=== PATIENT | male | born 1960 | race Caucasian/White ===

== ENCOUNTER → 2020-07-22 15:17 | Outpatient (BNVA) | payer MEDICARE, MEDICAID, SELFPAY | PROVIDERS: PCP Family Medicine; Visit Provider Anesthesiology | DX: M17.10 Unilateral primary osteoarthritis, unspecified knee (principal); M10.9 Gout, unspecified; G89.4 Chronic pain syndrome; Z79.891 Long term (current) use of opiate analgesic; E11.610 Type 2 diabetes mellitus with diabetic neuropathic arthropathy; E66.01 Morbid (severe) obesity due to excess calories | CPT/HCPCS: 99202 ==

== ENCOUNTER → 2020-08-17 15:43 | Outpatient (BNVA) | payer MEDICARE, MEDICAID, SELFPAY | PROVIDERS: PCP Family Medicine; Visit Provider Family Medicine Adult Medicine | DX: E11.610 Type 2 diabetes mellitus with diabetic neuropathic arthropathy (principal); M17.10 Unilateral primary osteoarthritis, unspecified knee | CPT/HCPCS: 99202; Q3014 ==

== ENCOUNTER → 2020-08-31 13:31 | Outpatient (BNVA) | payer MEDICARE, MEDICAID, SELFPAY | PROVIDERS: PCP Family Medicine; Visit Provider Family Medicine Adult Medicine | DX: E11.610 Type 2 diabetes mellitus with diabetic neuropathic arthropathy (principal); M17.10 Unilateral primary osteoarthritis, unspecified knee | CPT/HCPCS: 99212 ==

== ENCOUNTER → 2020-09-14 15:29 | Outpatient (BNVA) | payer MEDICARE, MEDICAID, SELFPAY | PROVIDERS: Visit Provider Urology | DX: Z13.89 Encounter for screening for other disorder (principal) | CPT/HCPCS: Q3014 ==

== ENCOUNTER → 2020-09-28 15:27 | Outpatient (BNVA) | payer MEDICARE, MEDICAID, SELFPAY | PROVIDERS: PCP Family Medicine; Visit Provider Family Medicine Adult Medicine | DX: E11.610 Type 2 diabetes mellitus with diabetic neuropathic arthropathy (principal); M17.10 Unilateral primary osteoarthritis, unspecified knee | CPT/HCPCS: 99212 ==

== ENCOUNTER → 2020-11-03 08:05 | Outpatient (BNVA) | payer MEDICARE, MEDICAID, SELFPAY | PROVIDERS: PCP Internal Medicine; Visit Provider Anesthesiology | DX: M17.10 Unilateral primary osteoarthritis, unspecified knee (principal); M10.9 Gout, unspecified; G89.4 Chronic pain syndrome; E11.610 Type 2 diabetes mellitus with diabetic neuropathic arthropathy; E66.01 Morbid (severe) obesity due to excess calories; Z79.891 Long term (current) use of opiate analgesic | CPT/HCPCS: 99212 ==

== ENCOUNTER → 2021-03-17 14:19 | Outpatient (BNVA) | payer MEDICARE, MEDICAID, SELFPAY | PROVIDERS: Visit Provider Urology | CPT/HCPCS: Q3014 ==

== ENCOUNTER 2021-05-06 10:06 | Day surgery (SDC) | payer MEDICARE, MEDICAID, SELFPAY ==
[2021-04-29 14:16] VITALS: BMI 37.8
--- NOTE | 2021-05-05 09:26 | P.CONAN_ITS ---
Documented by User: Gladis Lamb NP 05/05/21 09:31 HPI - Anesthesia Eval Consult details Narrative: 60yo M for Lumbar Spinal Cord Stimulation Trial Eliquis for afib PMFSH Active Problems Active Problems: All Active Problems (Updated 04/29/21 @ 14:19 by Erika Rogers RN) Nephrolithiasis (Acute) Nocturia more than twice per night (Acute) BPH w urinary obs/LUTS (Acute) Degenerative arthritis of knee, bilateral (Acute) Amputation of right great toe (Acute) Morbid obesity (Acute) Charcot foot due to diabetes mellitus (Acute) terminal operator (current) use of opiate analgesic (Acute) Chronic pain syndrome (Acute) Gout, arthritis (Acute) Knee osteoarthritis (Acute) Past Medical History Medical History (Updated 04/29/21 @ 14:19 by Erika Rogers RN) Amputation of right great toe Atrial fibrillation Charcot foot due to diabetes mellitus Chronic pain syndrome Cirrhosis COPD (chronic obstructive pulmonary disease) COVID-19 vaccine series completed Degenerative arthritis of knee, bilateral Diabetes Gout, arthritis Knee 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 Morbid obesity Osteomyelitis Renal calculi Surgical History Surgical History (Updated 04/29/21 @ 13:46 by Erika Rogers RN) H/O colonoscopy Hx of amputation Hx of foot surgery Hx of lithotripsy Hx of rotator cuff surgery Social History Social History Household Members Other:: roommate Are you a primary resident care director to a significant other at home: No Do you presently have visiting nurse or other home services: No Patient Tobacco Use Status: Current everyday Tobacco user Tobacco use type: Cigarette Cigarettes Per Day: 10 Years Smoked: 45 Use of substances other than those prescribed or required for medical reasons: No Have you been hit, kicked, punched, or otherwise hurt by someone within the past year? 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 Meds Allergies Allergy/AdvReac Type Severity Reaction Status Date / Time amlodipine [From NORVASC] Allergy Intermediate TREMORS Verified 03/17/21 14:20 hydrochlorothiazide Allergy Intermediate DIZZINESS Verified 03/17/21 14:20 [HYDROCHLOROTHIAZIDE] trazodone [TRAZODONE] Allergy Intermediate DIZZINESS Verified 03/17/21 14:20 escitalopram [From LEXAPRO] AdvReac Intermediate DIZZINESS Verified 03/17/21 14:20 Home Medications Medication Instructions Recorded Confirmed Last Taken Type cyclobenzaprine 10 mg tablet 10 mg PO TID 07/22/20 04/29/21 Unknown History gabapentin 600 mg tablet 600 mg PO TID 07/22/20 04/29/21 05/06/21 History furosemide 40 mg tablet 40 mg PO DAILY PRN 03/17/21 04/29/21 Unknown History albuterol sulfate 90 mcg/actuation 1 inh INHALATION Q4H PRN 04/29/21 04/29/21 Unknown History aerosol inhaler apixaban 5 mg tablet (Eliquis) 1 tab PO BID 04/29/21 04/29/21 Unknown History diltiazem HCl 120 mg 1 cap PO DAILY 04/29/21 04/29/21 05/06/21 History capsule,extended release 24 hr fluticasone 250 mcg-salmeterol 50 1 inh INHALATION BID 04/29/21 04/29/21 05/06/21 History mcg/dose blistr powdr for inhalation (Advair Diskus) metoprolol tartrate 25 mg tablet 1 tab PO BID 04/29/21 04/29/21 05/06/21 History tiotropium bromide 18 mcg capsule 1 cap INHALATION DAILY 04/29/21 04/29/21 05/06/21 History with inhalation device (Spiriva with HandiHaler) amoxicillin 875 mg-potassium 1 tab PO BID 05/06/21 05/06/21 05/06/21 History clavulanate 125 mg tablet Exam Exam Date and Time: May 05, 2021 0926 Height,Weight and Vital Signs: Height 5 ft 10 in Weight 119.748 kg Narrative Narrative: ECHO 08/2020 Normal LV size and systolic function. Borderline conc LVH. LVEF 60-65%. Normal RWM. Indeterminate LV diastolic function. Mild enlarged RV size. Normal RV global systolic function. PASP could not be obtained Mildly dilated LA. Mild dilated RA No hemodynamically significant valve disease Aortic root is mildly enlarged at 4cm Per cards note: Neg stress Jan 2019 Assessment and Plan Assessment Anesthesia Assessment: Chart Reviewed Documented by User: Emile Salgado MD 05/06/21 10:47 PMFSH Past Medical History Medical History (Updated 04/29/21 @ 14:19 by Erika Rogers, LYLY) Amputation of right great toe Atrial fibrillation Charcot foot due to diabetes mellitus Chronic pain syndrome Cirrhosis COPD (chronic obstructive pulmonary disease) COVID-19 vaccine series completed Degenerative arthritis of knee, bilateral Diabetes Gout, arthritis Knee osteoarthritis [facility] (current) use of opiate analgesic Morbid obesity Osteomyelitis Renal calculi Surgical History Surgical History (Updated 04/29/21 @ 13:46 by Erika Rogers RN) H/O colonoscopy Hx of amputation Hx of foot surgery Hx of lithotripsy Hx of rotator cuff surgery Social History Social History Household Members Other:: roommate Are you a primary resident care director to a significant other at home: No Do you presently have visiting nurse or other home services: No Patient Tobacco Use Status: Current everyday Tobacco user Tobacco use type: Cigarette Cigarettes Per Day: 10 Years Smoked: 45 Use of substances other than those prescribed or required for medical reasons: No Have you been hit, kicked, punched, or otherwise hurt by someone within the past year? 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 Meds Allergies Allergy/AdvReac Type Severity Reaction Status Date / Time amlodipine [From NORVASC] Allergy Intermediate TREMORS Verified 03/17/21 14:20 hydrochlorothiazide Allergy Intermediate DIZZINESS Verified 03/17/21 14:20 [HYDROCHLOROTHIAZIDE] trazodone [TRAZODONE] Allergy Intermediate DIZZINESS Verified 03/17/21 14:20 escitalopram [From LEXAPRO] AdvReac Intermediate DIZZINESS Verified 03/17/21 14:20 Home Medications Medication Instructions Recorded Confirmed Last Taken Type cyclobenzaprine 10 mg tablet 10 mg PO TID 07/22/20 04/29/21 Unknown History gabapentin 600 mg tablet 600 mg PO TID 07/22/20 04/29/21 05/06/21 History furosemide 40 mg tablet 40 mg PO DAILY PRN 03/17/21 04/29/21 Unknown History albuterol sulfate 90 mcg/actuation 1 inh INHALATION Q4H PRN 04/29/21 04/29/21 Unknown History aerosol inhaler apixaban 5 mg tablet (Eliquis) 1 tab PO BID 04/29/21 04/29/21 Unknown History diltiazem HCl 120 mg 1 cap PO DAILY 04/29/21 04/29/21 05/06/21 History capsule,extended release 24 hr fluticasone 250 mcg-salmeterol 50 1 inh INHALATION BID 04/29/21 04/29/21 05/06/21 History mcg/dose blistr powdr for inhalation (Advair Diskus) metoprolol tartrate 25 mg tablet 1 tab PO BID 04/29/21 04/29/21 05/06/21 History tiotropium bromide 18 mcg capsule 1 cap INHALATION DAILY 04/29/21 04/29/21 05/06/21 History with inhalation device (Spiriva with HandiHaler) amoxicillin 875 mg-potassium 1 tab PO BID 05/06/21 05/06/21 05/06/21 History clavulanate 125 mg tablet Exam Airway Mallampati Class: II TM Dist: >3cm Neck ROM: Full Denture: Upper and Lower
--- NOTE | ~2021-05-06 | FL_ITS ---
EXAMINATION: Intraoperative fluoroscopy CLINICAL INFORMATION: Spinal stimulator trial COMPARISON: None. TECHNIQUE: Intraoperative fluoroscopy was provided for use by Dr. Watkins. A total of 3 images were saved to PACS. A radiologist was not present during imaging. Today's dictation is only for administrative purposes to document intraoperative fluoroscopic usage. TOTAL FLUOROSCOPIC TIME: 10 minutes FL/FL guidance in OR FINDINGS~\^^ Intraoperative fluoroscopy provided for use by Dr. Watkins. Please see operative note for detailed findings.
[2021-05-06 10:21] VITALS: BP 138/57; PULSE 48; RESP 18; TEMP 36.1; O2SAT 96
[2021-05-06 10:29] LABS: Glucose, Whole Blood 111 mg/dL (60-115)
[2021-05-06] MEDS: Lactated Ringers 1,000 ML 100 ML IVCONT (10:47)
--- NOTE | 2021-05-06 10:55 | PC.NURSE ---
dr kim aware of pts pulse 44-51 sb asymptomatic
[2021-05-06 11:03] LABS: Hematocrit 40.5 % (42.0-52.0); Hemoglobin 13.8 g/dl (14.0-18.0); Mean Corpuscular HGB Conc 34.1 g/dl (31.0-36.0); Mean Corpuscular Hemoglobin 33.7 pg (27.0-33.0); Mean Corpuscular Volume 98.8 fL (80.0-98.0); Mean Platelet Volume 9.4 fL (9.4-12.4); Platelet Count 122 X10*3/uL (160-400); Red Cell Distribution Width 13.5 % (11.0-16.0); White Blood Count 5.6 X10*3/uL (4.8-10.8)
[2021-05-06 11:08] LABS: INTERNATIONAL NORM RATIO 1.2 (0.9-1.1); Prothrombin Time 13.1 SEC (9.9-13.0)
--- NOTE | 2021-05-06 11:20 | MHC.SHP ---
Pre-Procedural Eval Section A Date of Service: 05/06/21 Section B Chief Complaint: diabetes type 2 Details of Present Illness: Diabetes type 2, Charcot foot, bilateral knees osteoarthritis, lumbar spine spondylosis. Relevant Family History (Specify if Yes): No Relevant Social History: None Present Medications: see Short Stay Collaborative assessment Medical History: Significant History History of Previous Operations: No relevant previous surgery Allergies: Allergies Allergy/AdvReac Type Severity Reaction Status Date / Time amlodipine [From NORVASC] Allergy Intermediate TREMORS Verified 03/17/21 14:20 hydrochlorothiazide Allergy Intermediate DIZZINESS Verified 03/17/21 14:20 [HYDROCHLOROTHIAZIDE] trazodone [TRAZODONE] Allergy Intermediate DIZZINESS Verified 03/17/21 14:20 escitalopram [From LEXAPRO] AdvReac Intermediate DIZZINESS Verified 03/17/21 14:20 Review of Systems Sugical H&P ROS: Negative: Cardiovascular, Respiratory, Neurological, Psychiatric, Hem-Onc, Allergic/Immunologic, Genitourinary, Musculoskeletal, Integumentary and Eyes/Ears/Nose/Throat and Yes, Specify: Constitution (Morbid obesity), Gastrointestinal (Liver cirrhosis) and Endocrine (Diabetes type 2) Exam Surgical H&P Exam: Normal: HEENT, Normal: Heart, Normal: Lungs and Normal: Skin and Significant Findings: Extremities (Charcot foot), Significant Findings: Abdomen (Abdominal enlargement, liver cirrhosis) and Significant Findings: Neurological (Diabetic polyneuropathy) Plan Diagnosis/Plan: Unchanged I have reviewed the history and physical and performed a pertinent physical examination on my patient. No changes have occurred unless specified.
[2021-05-06 11:25] LABS: Alanine Aminotransferase 15 U/L (0-40); Albumin Level 3.7 g/dL (3.5-5.0); Alkaline Phosphatase 72 U/L (39-117); Anion Gap 11 (12-20); Aspartate Amino Transferase 22 U/L (5-37); Bilirubin Total 0.7 mg/dL (0.0-1.0); Blood Urea Nitrogen 13 mg/dL (9-16); Calcium 8.5 mg/dL (8.4-10.2); Carbon Dioxide 24 mmol/L (22-29); Chloride 109 mmol/L (96-108); Creatinine Clr Calc Pharmacy 84.5; Estimated Glomerular Filt Rate > 60; Glucose Fasting 107 mg/dL (60-99); Potassium 4.4 mmol/L (3.3-5.1); Sodium 140 mmol/L (135-145); Total Protein 6.9 g/dL (6.5-8.0)
[2021-05-06 13:25] VITALS: BP 111/50; PULSE 53; RESP 14; TEMP 36.2; O2SAT 98
--- NOTE | 2021-05-06 13:27 | MHC.SHP ---
Pre-Procedural Eval Section A Date of Service: 05/06/21 Section B Chief Complaint: diabetes type 2 Details of Present Illness: Diabetes type 2 diabetic polyneuropathy osteoarthritis bilateral knees spondylosis lumbar spine Relevant Family History (Specify if Yes): No Relevant Social History: None Present Medications: see Short Stay Collaborative assessment Medical History: Significant History History of Previous Operations: No relevant previous surgery Allergies: Allergies Allergy/AdvReac Type Severity Reaction Status Date / Time amlodipine [From NORVASC] Allergy Intermediate TREMORS Verified 03/17/21 14:20 hydrochlorothiazide Allergy Intermediate DIZZINESS Verified 03/17/21 14:20 [HYDROCHLOROTHIAZIDE] trazodone [TRAZODONE] Allergy Intermediate DIZZINESS Verified 03/17/21 14:20 escitalopram [From LEXAPRO] AdvReac Intermediate DIZZINESS Verified 03/17/21 14:20 Review of Systems Sugical H&P ROS: Negative: Cardiovascular, Respiratory, Neurological, Psychiatric, Hem-Onc, Allergic/Immunologic, Genitourinary, Integumentary and Eyes/Ears/Nose/Throat and Yes, Specify: Constitution (Morbid obesity), Gastrointestinal (Liver cirrhosis), Musculoskeletal (Generalized osteoarthritis) and Endocrine (Diabetes type 2) Exam Surgical H&P Exam: Normal: HEENT, Normal: Heart, Normal: Lungs, Normal: Extremities, Normal: Skin and Normal: Neurological and Significant Findings: Abdomen (Enlarged m.b. ascites) Plan Diagnosis/Plan: Unchanged I have reviewed the history and physical and performed a pertinent physical examination on my patient. No changes have occurred unless specified.
--- NOTE | 2021-05-06 13:31 | PM.OP ---
Brief Operative Note Date of Service: 05/06/21 Pre-op diagnosis: Spondylosis lumbar spine, diabetes type 2, morbid obesity, Charcot foot Post-op diagnosis: same Procedure: Trial of [employer] spinal cord stimulator Implants: None permanent Surgeon: Cesar Watkins MD Anesthesia: MAC Was an Brass Plater used for this Procedure?: No Estimated blood loss (mL): 5 Pathology: none sent Condition: stable Disposition: PACU
[2021-05-06 13:40] VITALS: BP 122/61; PULSE 49; RESP 18; O2SAT 98
[2021-05-06 13:55] VITALS: BP 111/31; PULSE 48; RESP 20; TEMP 36.4; O2SAT 97
[2021-05-06] MEDS: ondansetron HCL 4 MG/2 ML VIAL IVPUSH (13:55)
[2021-05-06] MEDS: oxyCODONE HCl Immed Release 5 MG TABLET 10 MG PO (13:55)
--- NOTE | 2021-05-06 15:06 | P.OP_ITS ---
Operative Note Operative Note Date of Service: 05/06/21 Narrative: Jeff is very pleasant 60 years old gentleman years old female who came today into the operating room for trial of spinal cord stimulator [employer] for the treatment of post laminectomy syndrome. Preoperatively rosa ent received clindamycin 900 mg 30 minutes before the procedure. After obtaining informed consent the patient was brought to the operating room, he was positioned prone on operating table, [employer] monitors were applied and patient was deeply sedated.? ?Time-out was performed delineating correct site, side, the nature of the procedure, patient's allergy, preoperative antibiotic if needed.? All operating room staff was participating in OR time-out procedure. Patient's entire back was prepped with DuraPrep twice and draped with full body fenestrated drape.? Sterilely draped C-arm was brought over operating field and square picture of T11,T12, L1 L2 vertebrae as were demonstrated on the screen.? Attention FIRST? was concentrated on the left L1-L2 epidural interspace. Here I made an attempt to insert retrograde epidural epidural lead into L3-L4 L4-5 lateral gutter on the right position. For this purpose upper lamina of L1 vertebra was infiltrated with lidocaine and from this point on 14 gauge 10 cm needle was advanced to the center of the epidural interspace L1-L2. When loss of resistance to air was felt on the needle and on lateral view the position of the needle was just clearing out 2 mm the interlaminar line, the guitar wire was inserted and was advanced in the epidural fashion. After that epidural lead was attempted to advanced to the right L3-L4 L4-5 lateral gutter. Unfortunately the epidural lead was tended to go into foraminas instead of staying in the lateral gutter of the epidural space. Several attempts were made to advance this lead in the projected desired location however the epidural lead was bumping into nerve roots. The decision was made to abandon this attempts and position to standard epidural leads in the thoracic spine. For that purpose the projection of the right pedicle center of the L2 vertebra was found on the skin using C- arm.? This location was injected with mixture of lidocaine 2% and Marcaine 0.5% 5 cc.? After that 11 blade was used to make a quinn on the skin.? 10 cm 14 gauge? introducer epidural needle was inserted through the quinn and advanced to? T12-L1 epidural interspace.? The? advancement of the needle was performed on anterior posterior and lateral views.? Guitar wire and loss of resistance technique were used to locate epidural space.? When guitar wire was spread in the epidural fashion, epidural lead was inserted through the skin and it was advanced to bottom of T8 position slightly left from MIDLINE.? After that location of the projection of the LEFT pedicle center of the L3 vertebra was found on the skin using C-arm.? This location was injected with mixture of lidocaine 2% and Marcaine 0.5% 5 cc.? After that 11 blade was used to make a quinn on the skin.? 10 cm 14 gauge curved introducer epidural needle was inserted through the quinn and advanced to T12-L1 epidural interspace.? The advancement of the needle was performed on anterior posterior and lateral views.? Guitar wire and loss of resistance technique were used to locate epidural space.? When guitar wire was spread in the epidural fashion, epidural lead was inserted through the needle and advanced to the top of T8 epidural interspace slightly right to the existing electrode. Impedance was checked and was satisfactory .? The patient was awake at this moment and epidural leads were connected to testing device.? Testing demonstrated pain of the patient corresponding to the stimulation pattern.? After that the position of epidural leads was found to be satisfactory on the anterior posterior and lateral views. Dermabond glue and Steri-Strips were used to fix the epidural leads to the skin after needles were withdrawn. The care was taking to preserve the needle position under direct C-arm view. Sterile dressing was applied and epidural leads were connected to testing device. At this moment the patient was awaken taking outside of the operating room to PACU where he recovered uneventfully.
== END 2021-05-06 14:35 | disposition home or self-care (01) ==
PROVIDERS: Nurse Practitioner; PCP Internal Medicine; Visit Provider Anesthesiology
PROC: (CPT 63650; principal; 2021-05-06 12:10)
DX: E11.610 Type 2 diabetes mellitus with diabetic neuropathic arthropathy (principal); E11.42 Type 2 diabetes mellitus with diabetic polyneuropathy; M54.50 Low back pain, unspecified; G89.4 Chronic pain syndrome; M47.816 Spondylosis without myelopathy or radiculopathy, lumbar region; M17.0 Bilateral primary osteoarthritis of knee; M79.672 Pain in left foot; M79.671 Pain in right foot; M25.511 Pain in right shoulder; Z89.411 Acquired absence of right great toe; K74.60 Unspecified cirrhosis of liver; I48.91 Unspecified atrial fibrillation; M10.9 Gout, unspecified; E66.01 Morbid (severe) obesity due to excess calories; Z68.36 Body mass index [BMI] 36.0-36.9, adult; Z79.01 Long term (current) use of anticoagulants; Z79.891 Long term (current) use of opiate analgesic; Z88.8 Allergy status to other drugs, medicaments and biological substances
CPT/HCPCS: 63650 ×2; 36415; 80053; 82947; 85027; 85610; C1778; J0690; J1100; J2250; J2405

== ENCOUNTER → 2021-05-12 09:54 | Outpatient (BNVA) | payer MEDICARE, MEDICAID, SELFPAY | PROVIDERS: PCP Internal Medicine; Visit Provider Anesthesiology | DX: E11.610 Type 2 diabetes mellitus with diabetic neuropathic arthropathy (principal); G89.4 Chronic pain syndrome; M17.10 Unilateral primary osteoarthritis, unspecified knee; M10.9 Gout, unspecified; E66.01 Morbid (severe) obesity due to excess calories; Z79.891 Long term (current) use of opiate analgesic; F17.210 Nicotine dependence, cigarettes, uncomplicated | CPT/HCPCS: 99212 ==

== ENCOUNTER 2022-01-31 10:07 | Outpatient (REF) | payer MEDICARE, MEDICAID, SELFPAY ==
--- NOTE | ~2022-01-31 | US_ITS ---
EXAMINATION: US RETROPERITONEAL LIMITED (RENAL ONLY) CLINICAL INFORMATION: Calculus of kidney. COMPARISON: US retroperitoneal limited (renal only) 03/01/2021 and 08/31/2020. XR abdomen KUB 04/07/2019 and 03/19/2019. TECHNIQUE: Real-time imaging of the kidneys. FINDINGS: RIGHT KIDNEY: 10.5 x 5.1 x 4.9 cm (SAG x AP x TRV). The kidney is normal in size, contour, and echogenicity. Renal cortical thickness is normal. A 2 mm right renal lower pole nonobstructing calculus is seen. No hydronephrosis. At the upper pole, a 6.3 x 5.6 x 5.4 cm mildly complex cyst is seen, with fine septation. This shows no mural nodularity or associated color Doppler flow. On the ultrasound examination dated 04/07/2019, this measured 5.3 x 4.1 x 4.0 cm. LEFT KIDNEY: 11.2 x 5.3 x 4.5 cm (SAG x AP x TRV). The kidney is normal in size, contour, and echogenicity. Renal cortical thickness is normal. No renal calculi or hydronephrosis. At the interpolar aspect, a 4.4 cm in maximal diameter anechoic, simple cyst is seen. US/US renal BI IMPRESSION: 1. There is interim increase in a mildly complex right renal upper pole cyst, with fine septation. If relevant to patient management, this could be further evaluated with CT or MRI (renal mass protocol). 2. A benign, simple left renal cyst is of incidental note. 3. A 2 mm nonobstructing right renal calculus is seen. No left renal calculus is seen. No hydronephrosis is noted bilaterally.
== END 2022-01-31 10:08 | disposition home or self-care (01) ==
LOC: HO.US 10:07
PROVIDERS: Visit Provider Urology
DX: N20.0 Calculus of kidney (principal)
CPT/HCPCS: 76775

== ENCOUNTER 2022-03-29 11:28 | Outpatient (REF) | payer MEDICARE, MEDICAID, SELFPAY ==
[2022-03-29 17:40] LABS: Urine Cytology See Pathology rpt
== END 2022-03-29 11:29 | disposition home or self-care (01) ==
LOC: HO.LAB 11:28
PROVIDERS: Visit Provider Urology
DX: R31.29 Other microscopic hematuria (principal); N20.0 Calculus of kidney; R35.1 Nocturia; N40.1 Benign prostatic hyperplasia with lower urinary tract symptoms; N13.8 Other obstructive and reflux uropathy
CPT/HCPCS: 51798; 88112; 99212

== ENCOUNTER 2023-03-13 10:16 | Outpatient (REF) | payer MEDICARE, MEDICAID, SELFPAY ==
--- NOTE | ~2023-03-13 | US_ITS ---
EXAMINATION: US RETROPERITONEAL LIMITED (RENAL ONLY) CLINICAL INFORMATION: Calculus of kidney. COMPARISON: Renal ultrasound 01/31/2022 and 03/01/2021. X-ray KUB 04/07/2019 and 03/19/2019. TECHNIQUE: Real-time imaging of the kidneys. FINDINGS: RIGHT KIDNEY: 13.1 x 6.1 x 5.6 cm (SAG x AP x TRV). The kidney is normal in size, contour, and echogenicity. Renal cortical thickness is normal. 2 echogenic foci are seen at the lower pole of the right kidney, the largest 5 mm which may represent a nonobstructing calculus. At the time of the prior study a single 2 mm foci was noted. No hydronephrosis. A benign 6.4 cm Bosniak class II renal cyst is noted which contains a single septation. At the time of the prior study, this measured about the same at 6.3 cm. This lesion requires no additional imaging or follow up. No solid renal masses are seen. LEFT KIDNEY: 10.3 x 5.5 x 5.1 cm (SAG x AP x TRV). The kidney is normal in size, contour, and echogenicity. Renal cortical thickness is normal. No renal calculi or hydronephrosis. A benign 4.7 cm Bosniak class I renal cyst is noted which requires no additional imaging or follow up. No solid renal masses are seen. US/US renal BI IMPRESSION: 1. Bilateral benign Bosniak class I and Bosniak class II renal cysts which need no further imaging or follow up. 2. Nonobstructing right lower pole renal calculi.
== END 2023-03-13 10:17 | disposition home or self-care (01) ==
LOC: HO.US 10:16
PROVIDERS: PCP Internal Medicine; Visit Provider Urology
DX: N20.0 Calculus of kidney (principal)
CPT/HCPCS: 76775

== ENCOUNTER 2023-03-30 10:53 | Outpatient (AMB) | payer MEDICARE, MEDICAID, SELFPAY ==
--- NOTE | 2023-03-30 11:21 | MHC.OFFVIS ---
Intake Intake Visit Reasons: 1y/US(set) Intake Note: Patient is Present for Follow Up Ultrasound/PVR Urology Medication: Terazosin, Vitamin B6, Finasteride (Patient wants to discuss Finasteride has not taken medication) Antibiotic Allergies: None Blood Thinners: Eliquis Pharmacy: [facility] PVR: 22ml Allergies amlodipine [From NORVASC] Allergy (Intermediate, Verified 03/30/23 11:26) TREMORS hydrochlorothiazide [HYDROCHLOROTHIAZIDE] Allergy (Intermediate, Verified 03/30/23 11:26) DIZZINESS trazodone [TRAZODONE] Allergy (Intermediate, Verified 03/30/23 11:26) DIZZINESS escitalopram [From LEXAPRO] Adverse Reaction (Intermediate, Verified 03/30/23 11:26) DIZZINESS HPI HPI Comments History of Present Illness Details Jeff Hawkins is a very pleasant male. He is a patient of Dr Ramirez. He seen for the following urologic conditions. - lower urinary tract symptoms - renal cyst in stones Voiding symptoms stable Continues with finasteride and terazosin Vitamin B6 for nephrolithiasis Had 2+ blood, leuks in urine Recheck 6 months Lower urinary tract symptoms Baseline on finasteride Symptoms - 09/19 nocturia minimal, effective stream, emptying Current therapy finasteride Nephrolithiasis/Urolithiasis: Discussed ultrasound No stones Urolithiasis was diagnosed 01/[address] for dark urine at [facility] [place]. The patient previously had kidney stones whose composition w unknown. Laboratory investigations include no recent labs. 24 Hour urine evaluation none on file. Prior treatment(s) include 11/17 , ESWL, left 03/20 , ESWL, left. Prior imaging includes 01/16 , a CT (computed tomography) scan of the abdomen/pelvis (stone protocol), showing radiodense stone(s), , on the left, 2-5 mm with punctate calcium 10/18 , a CT (computed tomography) scan of the abdomen/pelvis (stone protocol) 11mm left UPJ stone with hydroneprhosis 10/18 , a renal ultrasound, bilateral ureteric jets suggesting not fully obstructing 11/17 , a renal ultrasound, showing radiodense stone(s), left 13mm lower pole, no hydro 03/20 , a renal ultrasound 6mm left LLP, bilateral cysts 2cm 04/19 ,, a KUB x-ray, showing no evidence of stones 01/18 , a renal ultrasound, , showing radiodense stone(s), on the left, bilateral cysts 09/19 renal ultrasound, right-sided 5 cm complex cyst and no stones - 03/22 renal ultrasound 5 cm cyst right side - 03/23 RENAL ULTRASOUND BILATERAL 5 CM CYST UNCHANGED - 03/24 renal ultrasound stable cyst, small stone right side Current therapeutic plan will be - keep on vit B6 PFSH Medical History COVID-19 vaccine series completed COPD (chronic obstructive pulmonary disease) Cirrhosis Renal calculi Osteomyelitis Diabetes Atrial fibrillation Degenerative arthritis of knee, bilateral Amputation of right great toe Morbid obesity Charcot foot due to diabetes mellitus 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 Chronic pain syndrome Gout, arthritis Knee osteoarthritis Surgical History H/O colonoscopy Hx of rotator cuff surgery Hx of foot surgery Hx of lithotripsy Hx of amputation Social History Household Members Other:: roommate Are you a primary healthcare network pricing consultant to a significant other at home: No Do you presently have visiting nurse or other home services: No Patient Tobacco Use Status: Current everyday Tobacco user Tobacco use type: Cigarette Cigarettes Per Day: 10 Years Smoked: 45 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 Review of Systems Const Denies chills and Denies fever(s) Card Reports no additional complaints and Denies syncope Resp Denies cough GI Denies abdominal pain and Denies heartburn Reports as per HPI and Denies change in libido Neuro Denies syncope Psych Denies change in libido Endo Denies change in libido Physical Exam Const General: cooperative, healthy appearing, comfortable and no acute distress Orientation/consciousness: patient oriented x3 HEENT Face and sinus: Yes normal facial exam Mouth: moist mucous membranes Neck Neck: Yes normal visual inspection, Yes full ROM and Yes trachea midline Chest Chest palpation & inspection: normal inspection of the chest Resp Effort & Inspection: normal respiratory effort, able to speak in complete sentences and no respiratory distress GI Inspection: Yes normal to inspection Back/Spine/Pelvis Cervical Spine: normal cervical lordosis Thoracic/Lumbar Spine: thoracic and lumbar spine normal to inspection Skin General skin exam: no rashes or lesions noted Neuro General: patient oriented x3, gait normal, tone normal and moves all extremities Extrem General: Yes normal to inspection and Yes capillary refill normal Office Procedures Post Void Residual Post Residual Void Post Void Residual (PVR): 22 [id number] Void Residual by ultrasound Results AMB Urinalysis, Automated UA Leukoctes 125 Shree/uL Last Edit by Reina Cadena [facility] on 03/30/23 11:33 UA Nitrite Negative Last Edit by Reina Cadena [facility] on 03/30/23 11:33 UA Urobilinogen 1 mg/dL Last Edit by Reina Cadena A on 03/30/23 11:33 UA Protein 100 mg/dL Last Edit by Reina Cadena [facility] on 03/30/23 11:33 UA pH 6.0 Last Edit by Reina Cadena A on 03/30/23 11:33 UA Blood 200 Joseph/uL Last Edit by Reina Cadena [facility] on 03/30/23 11:33 UA Specific Violet 1.025 Last Edit by Reina Cadena [facility] on 03/30/23 11:33 UA Ketone Negative Last Edit by Reina Cadena [facility] on 03/30/23 11:33 UA Bilirubin 0 mg/dL Last Edit by Reina Cadena [facility] on 03/30/23 11:33 UA Glucose 0 mg/dL Last Edit by Reina Cadena [facility] on 03/30/23 11:33 Results Reviewed Results Reviewed: Laboratory Last Values Urine pH (Auto) 6.0 03/30/23 11:27 Specific Violet (Auto) 1.025 03/30/23 11:27 Urine Protein (Auto) 100 mg/dL 03/30/23 11:27 Glucose (UA)(Auto) 0 mg/dL 03/30/23 11:27 Urine Ketones (Auto) Negative 03/30/23 11:27 Urine Blood (Auto) 200 Joseph/uL 03/30/23 11:27 Urine Nitrite (Auto) Negative 03/30/23 11:27 Urine Bilirubin (Auto) 0 mg/dL 03/30/23 11:27 Urine Urobilinogen (Auto) 1 mg/dL 03/30/23 11:27 Leukocyte Esterase (Auto) 125 Shree/uL 03/30/23 11:27 Assessment & Plan Assessment & Plan (1) Nephrolithiasis: Code(s): N20.0 - Calculus of kidney (2) BPH w urinary obs/LUTS: Code(s): N40.1 - Benign prostatic hyperplasia with lower urinary tract symptoms; N13.8 - Other obstructive and reflux uropathy Plan Six month follow-up UA Orders: Orders AMB Urinalysis Automated Today Z13.9 - Encounter for screening, unspecified AMB Post Void Residual by ultrasound Today N13.8 - Other obstructive and reflux uropathy, N40.1 - Benign prostatic hyperplasia with lower urinary tract symptoms Urine Cytology Today R31.29 - Other microscopic hematuria Patient Instructions: Imaging studies, laboratory and physical exam results were discussed and reviewed in detail. No major barriers to patient understanding were identified. An opportunity to ask questions regarding the treatment plan was provided. All questions were answered. The patient expressed understanding and agreement with the above treatment plan. The patient is aware they should contact our office by phone for worsening of their current condition or the appearance of new urologic symptoms. Compliance is encouraged with any medications and followup testing that is ordered. It is a privilege to participate in the urologic care of your patient. If you have any questions or concerns regarding treatment for the above conditions, or other urologic issues, please do not hesitate to contact me. The office telephone contact is [phone]. This note is constructed using voice recognition software. While every effort has been made to ensure accuracy news cameraman errors may have been included. Yours sincerely, Dr Haroldo Butterfield MD, [facility] - Urology Providers of Expert, Compassionate Care for the Genitourinary System Coding Level of Care Code Est Pt Level 3 (73768) Diagnoses Nephrolithiasis N20.0 BPH w urinary obs/LUTS N40.1; N13.8 CPT Codes Post Residual Void - PVR CPT Code: 78220-Mmos Void Residual by ultrasound ([id number])
== END 2023-03-30 11:46 | disposition home or self-care (01) ==
PROVIDERS: PCP Internal Medicine; Visit Provider Urology
DX: N20.0 Calculus of kidney (principal); N40.1 Benign prostatic hyperplasia with lower urinary tract symptoms; N13.8 Other obstructive and reflux uropathy; Z13.9 Encounter for screening, unspecified
CPT/HCPCS: 99213

== ENCOUNTER 2023-03-30 10:53 | Outpatient (REF) | payer MEDICARE, MEDICAID, SELFPAY ==
[2023-03-30 17:01] LABS: Urine Cytology See Pathology rpt
== END 2023-03-30 10:54 | disposition home or self-care (01) ==
LOC: HO.LAB 10:53
PROVIDERS: PCP Internal Medicine; Visit Provider Urology
DX: N20.0 Calculus of kidney (principal); N40.1 Benign prostatic hyperplasia with lower urinary tract symptoms; N13.8 Other obstructive and reflux uropathy; R31.29 Other microscopic hematuria; Z79.01 Long term (current) use of anticoagulants
CPT/HCPCS: 51798; 81003; 88112; 99212

== ENCOUNTER 2023-12-18 10:37 | Outpatient (AMB) | payer MEDICARE, MEDICAID, SELFPAY ==
--- NOTE | 2023-12-18 10:43 | A.OFFVIS_ITS ---
Intake Visit Reasons: follow up/UA Intake Note: Patient is Present for PVR/UA/Med Review Urology Med: Terazosin, Finasteride, Vitamin B6 Antibiotic Allergy: None Blood Thinner: Eliquis Last PVR: 22 Todays PVR: 57 Allergies amlodipine [From NORVASC] Allergy (Intermediate, Verified 12/18/23 10:44) TREMORS hydrochlorothiazide [HYDROCHLOROTHIAZIDE] Allergy (Intermediate, Verified 12/18/23 10:44) DIZZINESS trazodone [TRAZODONE] Allergy (Intermediate, Verified 12/18/23 10:44) DIZZINESS escitalopram [From LEXAPRO] Adverse Reaction (Intermediate, Verified 12/18/23 10:44) DIZZINESS HPI Comments Details: Jeff Hawkins is a very pleasant male. He is a patient of Dr Ramirez. He seen for the following urologic conditions. - lower urinary tract symptoms - renal cyst in stones Voiding symptoms stable Continues with finasteride and terazosin Vitamin B6 for nephrolithiasis Persistent 2+ blood in urine Plan cystoscopy Prior upper tract imaging normal Lower urinary tract symptoms Baseline on finasteride Symptoms - 09/19 nocturia minimal, effective stream, emptying Current therapy finasteride Nephrolithiasis/Urolithiasis: Discussed ultrasound No stones Urolithiasis was diagnosed 01/[address] for dark urine at [facility] [place]. The patient previously had kidney stones whose composition w unknown. Laboratory investigations include no recent labs. 24 Hour urine evaluation none on file. Prior treatment(s) include 11/17 , ESWL, left 03/20 , ESWL, left. Prior imaging includes 01/16 , a CT (computed tomography) scan of the abdomen/pelvis (stone protocol), showing radiodense stone(s), , on the left, 2-5 mm with punctate calcium 10/18 , a CT (computed tomography) scan of the abdomen/pelvis (stone protocol) 11mm left UPJ stone with hydroneprhosis 10/18 , a renal ultrasound, bilateral ureteric jets suggesting not fully obstructing 11/17 , a renal ultrasound, showing radiodense stone(s), left 13mm lower pole, no hydro 03/20 , a renal ultrasound 6mm left LLP, bilateral cysts 2cm 04/19 ,, a KUB x-ray, showing no evidence of stones 01/18 , a renal ultrasound, , showing radiodense stone(s), on the left, bilateral cysts 09/19 renal ultrasound, right-sided 5 cm complex cyst and no stones - 03/22 renal ultrasound 5 cm cyst right side - 03/23 RENAL ULTRASOUND BILATERAL 5 CM CYST UNCHANGED - 03/24 renal ultrasound stable cyst, small stone right side Current therapeutic plan will be - [facility] vit [facility] Medical History COVID-19 vaccine series completed COPD (chronic obstructive pulmonary disease) Cirrhosis Renal calculi Osteomyelitis Diabetes Atrial fibrillation Degenerative arthritis of knee, bilateral Amputation of right great toe Morbid obesity Charcot foot due to diabetes mellitus FPC (current) use of opiate analgesic Chronic pain syndrome Gout, arthritis Knee osteoarthritis Surgical History H/O colonoscopy Hx of rotator cuff surgery Hx of foot surgery Hx of lithotripsy Hx of amputation Social History Household Members Other:: roommate Are you a primary critical care unit manager to a significant other at home: No Do you presently have visiting nurse or other home services: No Patient Tobacco Use Status: Current everyday Tobacco user Tobacco use type: Cigarette Cigarettes Per Day: 10 Years Smoked: 45 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 Review of Systems Const Denies chills and Denies fever(s) Card Reports no additional complaints and Denies syncope Resp Denies cough GI Denies abdominal pain and Denies heartburn Reports as per HPI and Denies change in libido Neuro Denies syncope Psych Denies change in libido Endo Denies change in libido Physical Exam Const General: cooperative, healthy appearing, comfortable and no acute distress Orientation/consciousness: patient oriented x3 HEENT Face and sinus: Yes normal facial exam Mouth: moist mucous membranes Neck Neck: Yes normal visual inspection, Yes full ROM and Yes trachea midline Chest Chest palpation & inspection: normal inspection of the chest Resp Effort & Inspection: normal respiratory effort, able to speak in complete sentences and no respiratory distress GI Inspection: Yes normal to inspection Back/Spine/Pelvis Cervical Spine: normal cervical lordosis Thoracic/Lumbar Spine: thoracic and lumbar spine normal to inspection Skin General skin exam: no rashes or lesions noted Neuro General: patient oriented x3, gait normal, tone normal and moves all extremities Extrem General: Yes normal to inspection and Yes capillary refill normal Office Procedures Post Void Residual Post Residual Void Post Void Residual (PVR): 57 [id number] Void Residual by ultrasound Results AMB Urinalysis, Automated UA Leukoctes 70 Shree/uL Last Edit by Reina Cadena [facility] on 12/18/23 10:52 UA Nitrite Negative Last Edit by Reina Cadena [facility] on 12/18/23 10:52 UA Urobilinogen 0.2 mg/dL Last Edit by Reina Cadena A on 12/18/23 10:5 2 UA Protein 30 mg/dL Last Edit by Reina Cadena A on 12/18/23 10:52 UA pH 5.5 Last Edit by Reina Cadena [facility] on 12/18/23 10:52 UA Blood 200 Joseph/uL Last Edit by Reina Cadena [facility] on 12/18/23 10:52 UA Specific [place] 1.015 Last Edit by Reina Cadena [facility] on 12/18/23 10: 52 UA Ketone Negative Last Edit by Reina Cadena [facility] on 12/18/23 10:52 UA Bilirubin 0 mg/dL Last Edit by Reina Cadena [facility] on 12/18/23 10:52 UA Glucose 0 mg/dL Last Edit by Reina Cadena [facility] on 12/18/23 10:52 Results Reviewed Results Reviewed: Laboratory Last Values Urine pH (Auto) 5.5 12/18/23 10:45 Specific Junction (Auto) 1.015 12/18/23 10:45 Urine Protein (Auto) 30 mg/dL 12/18/23 10:45 Glucose (UA)(Auto) 0 mg/dL 12/18/23 10:45 Urine Ketones (Auto) Negative 12/18/23 10:45 Urine Blood (Auto) 200 Joseph/uL 12/18/23 10:45 Urine Nitrite (Auto) Negative 12/18/23 10:45 Urine Bilirubin (Auto) 0 mg/dL 12/18/23 10:45 Urine Urobilinogen (Auto) 0.2 mg/dL 12/18/23 10:45 Leukocyte Esterase (Auto) 70 Shree/uL 12/18/23 10:45 Assessment & Plan Assessment & Plan (1) Nephrolithiasis: Code(s): N20.0 - Calculus of kidney Category: Medical (2) BPH w urinary obs/LUTS: Code(s): N40.1 - Benign prostatic hyperplasia with lower urinary tract symptoms; N13.8 - Other obstructive and reflux uropathy Category: Medical (3) Microscopic hematuria: Code(s): R31.29 - Other microscopic hematuria Category: Medical Plan Cystoscopy Refill medication Orders: Orders AMB Urinalysis Automated Today Z13.9 - Encounter for screening, unspecified AMB Post Void Residual by ultrasound Today N13.8 - Other obstructive and reflux uropathy, N40.1 - Benign prostatic hyperplasia with lower urinary tract symptoms Patient Instructions: Imaging studies, laboratory and physical exam results were discussed and reviewed in detail. No major barriers to patient understanding were identified. An opportunity to ask questions regarding the treatment plan was provided. All questions were answered. The patient expressed understanding and agreement with the above treatment plan. The patient is aware they should contact our office by phone for worsening of their current condition or the appearance of new urologic symptoms. Compliance is encouraged with any medications and followup testing that is ordered. It is a privilege to participate in the urologic care of your patient. If you have any questions or concerns regarding treatment for the above conditions, or other urologic issues, please do not hesitate to contact me. The office telephone contact is [phone]. This note is constructed using voice recognition software. While every effort has been made to ensure accuracy alarm operator errors may have been included. Yours sincerely, Dr Haroldo Butterfield MD, [facility] - Urology Providers of Expert, Compassionate Care for the Genitourinary System Coding Level of Care Code Est Pt Level 3 (42332) Diagnoses Nephrolithiasis N20.0 BPH w urinary obs/LUTS N40.1; N13.8 Microscopic hematuria R31.29 CPT Codes Post Residual Void - PVR CPT Code: 15114-Lesd Void Residual by ultrasound ([id number])
== END 2023-12-18 11:22 | disposition home or self-care (01) ==
PROVIDERS: PCP Internal Medicine; Visit Provider Urology
DX: N20.0 Calculus of kidney (principal); N40.1 Benign prostatic hyperplasia with lower urinary tract symptoms; N13.8 Other obstructive and reflux uropathy; R31.29 Other microscopic hematuria; Z13.9 Encounter for screening, unspecified
CPT/HCPCS: 99213

== ENCOUNTER → 2023-12-18 10:37 | Outpatient (BNVA) | payer MEDICARE, MEDICAID, SELFPAY | PROVIDERS: PCP Internal Medicine; Visit Provider Urology | DX: N20.0 Calculus of kidney (principal); N40.1 Benign prostatic hyperplasia with lower urinary tract symptoms; N13.8 Other obstructive and reflux uropathy; R31.29 Other microscopic hematuria | CPT/HCPCS: 51798; 81003; 99212 ==

== ENCOUNTER → 2024-11-27 10:49 | Outpatient (BNVA) | payer MEDICARE, SELFPAY | PROVIDERS: PCP Internal Medicine; Visit Provider Urology | DX: Z13.89 Encounter for screening for other disorder (principal) ==

== ENCOUNTER 2025-01-26 15:22 | Outpatient (REF) | payer OTHER, SELFPAY ==
--- OUTSIDE RECORDS SUMMARY | 2025-01-26 15:44 | XMS_ITS | Data Portability ---
Author Organization [place] - [facility] Address [address] [place] [id number] Care Team Providers Care Timekeeping Supervisor Name Role Phone EDE RAMIREZ Primary Care Provider [phone] Assessment Encounter Date Assessment Date Assessment LastModified by Organization Details LastModified Time 05/25/2019 05/25/2019 Overview/History : 58-year-old male, [facility], with a past medical history that includes but not limited to asthma, COPD, diabetes, AFib on Eliquis, osteoarthritis, neuropathy, was evaluated for complaints of vomiting and diarrhea over the past 2-3 days. He complains of feeling wiped out . The patient was recently started on prednisone taper and cefuroxime for a COPD exacerbation bronchitis. He reports that the cough has improved slightly. He continues to experience nausea and reports his last episode of vomiting was this morning. He denies any fever, chills, sweats, abdominal pain, back pain, dysuria, hematuria, lightheadedness or palpitations. Exam: Elderly appearing male, in no acute distress, ambulating without difficulty. Lungs with inspiratory and expiratory wheezing bilaterally. No increased work of breathing. Abdomen soft and nontender. BS x4. No CVA tenderness. Left lower extremity with a dressing and orthopedic brace. DDx considered, but not limited to: Infectious diarrhea. Gastroenteritis. Dehydration. Electrolyte derangement. Work up/Results: Electrolytes within normal limits. Heme concentrated. Plan/Discussion: Patient's symptoms are consistent with gastroenteritis with mild dehydration. IV normal saline 1 L given along with Zofran 4 mg IV. Patient reports feeling improved after receiving the medications and IV fluids. He was instructed to continue taking the prednisone taper and cefuroxime and has prescribed. If he develops any fever, increasing shortness of breath or persistent vomiting he was advised to go to the ED for further management. In order to obtain further information and compare any laboratory results/values, I have accessed patient records on the [facility]. This information was pertinent in my medical decision making today. This note was dictated using speech recognition software. Minor errors in employment evaluator/case manager may be present. Attempt at proofreading was made to minimize any errors. Time On Scene with Patient: 00:57:45 Not available 05/25/2019 19:37:24 Plan of Treatment Reminders Order Date Submit Date Provider Last Modified By Organization Details Last Modified Time Details Appointments None recorded. Lab BMP + ionized calcium, serum or plasma 2018 [email or web address] [facility], [address] [place], [address], 9 14:19:47 Referral None recorded. Procedures None recorded. Surgeries None recorded. Imaging None recorded. Medication Orders sodium chloride 0.9 % intraveno us solution 2018 [email or web address] Not available 0 18:54:23 Zofran 2 mg/mL intraveno us solution 2018 019 [email or web address] [id number], [address] [place], [place], [id number], 9 14:19:47 ondansetr on 4 mg disintegr ating tablet 2018 INTERFACE [facility] #[id number], [address], [place], [id number], 9 14:34:18 Patient TargetsNo targets recorded. Patient Instructions Encounter Date Encounter Id Patient Instructions Last Modified By Organization Details Last Modified Time 05/25/2019 [id number] Gastroenteritis: Gastroenteritis can cause nausea, vomiting, diarrhea, and abdominal cramping. This may occur as a result of food sensitivity, inflammation of your gastrointestinal tract, medicines, stress, or other causes not related to infection. Your symptoms will usually last from 1 to 3 days, but can last longer. Antibiotics are not effective, but simple home treatment will be helpful. Home care Medicine You may use acetaminophen or NSAID medicines like ibuprofen or naproxen to control fever, unless another medicine is prescribed. (Note: If you have chronic liver or kidney disease, or ever had a stomach ulcer or gastrointestinalI bleeding, talk with your healthcare provider before using these medicines.) Aspirin should never be used in anyone under 18 years of age who is ill with a fever. It may cause severe liver damage. Don't increase your NSAID medicines if you are already taking these medicines for another condition (like arthritis). Don't use NSAIDS if you are on aspirin (such as for heart disease, or after a stroke). If medicines for diarrhea or vomiting are prescribed, take only as directed. General care and preventing spread of the illness If symptoms are severe, rest at home for the next 24 hours or until you feel better. Hand washing with soap and water is the best way to prevent the spread of infection. Wash your hands after touching anyone who is sick. Wash your hands after using the toilet and before meals. Clean the toilet after each use. Caffeine, tobacco, and alcohol can make your diarrhea, cramping, and pain worse. Diet Water and clear liquids are important so you do not get dehydrated. Drink a small amount at a time. Do not force yourself to eat, especially if you have cramps, vomiting, or diarrhea. When you finally decide to start eating, do not eat large amounts at a time, even if you are hungry. If you eat, avoid fatty, greasy, spicy, or fried foods. Do not eat dairy products if you have diarrhea; they can make the diarrhea worse. During the first 24 hours (the first full day), follow the diet below: Beverages: Water, clear liquids, soft drinks without caffeine, like kimmie sarina; mineral water (plain or flavored); decaffeinated tea and coffee. Soups: Clear broth, consomm , and bouillon Sports drinks aren't a good choice because they have too much sugar and not enough electrolytes. In this case, commercially available products called oral rehydration solutions are best. Desserts: Plain gelatin, popsicles, and fruit juice bars. During the next 24 hours (the second day), you may add the following to the above if you have improved. If not, continue what you did the first day: Hot cereal, plain toast, bread, rolls, crackers Plain noodles, rice, mashed potatoes, chicken noodle or rice soup Unsweetened canned fruit (avoid pineapple), bananas Limit caffeine and chocolate. No spices or seasonings except salt. During the next 24 hours Gradually resume a normal diet, as you feel better and your symptoms improve. If at any time your symptoms start getting worse, go back to clear liquids until you feel better. Food preparation If you have diarrhea, you should not prepare food for others. When you prepare food for yourself, wash your hands before and after. Wash your hands after using cutting boards, countertops, and knives that have been in contact with raw food. Keep uncooked meats away from cooked and sywxd-om-ieh foods. Follow-up care Follow up with your healthcare provider if you are not improving over the next 2 to 3 days, or as advised. If a stool (diarrhea) sample was taken, call for the results as directed. When to seek medical care Call your healthcare provider right away if any of these occur: Increasing abdominal pain or constant lower right abdominal pain Continued vomiting (unable to keep liquids down) Frequent diarrhea (more than 5 times a day) Blood in vomit or stool (black or red color) Inability to tolerate solid food after a few days. Dark urine, reduced urine output Weakness, dizziness Drowsiness Fever of 100.4 F (38.0 C) or higher, or as directed by your healthcare provider New rash Call 911 Call 911 if any of these occur: Trouble breathing Chest pain Confusion Severe drowsiness or trouble awakening Seizure Stiff neck Not available 05/25/2019 14:33:32 Reason for Referral None Reported. Results Created Date Observation Date Name Description Value Unit Range Abnormal Flag Note LastModifiedBy Organization Detail LastModifiedTime 05/25/20 19 05/25/2019 BMP + ioniz ed calci um, serum or plasm a Na 135 mmol/ L 138-14 6 Not Available [facility] [address] [place], [address], 05/25/2019 14:02:59 05/25/20 19 05/25/2019 BMP + ioniz ed calci um, serum or plasm a K 3.8 mmol/ L 3.5-4. 9 Not Available [facility] [address] [place], [address], 05/25/2019 14:02:59 05/25/20 19 05/25/2019 BMP + ioniz ed calci um, serum or plasm a cL 105 mmol/ L 98-109 Not Available [facility] [address] [place], [address], 05/25/2019 14:02:59 05/25/20 19 05/25/2019 BMP + ioniz ed calci um, serum or plasm a ica 1.01 mmol/ L 1.12-1 .32 Not Available [facility] [address] [place], [address], 05/25/2019 14:02:59 05/25/20 19 05/25/2019 BMP + ioniz ed calci um, serum or plasm a TCO2 24 mmol/ L 24-29 Not Available [facility] [address] [place], [address], 05/25/2019 14:02:59 05/25/20 19 05/25/2019 BMP + ioniz ed calci um, serum or plasm a glu 97 mg/dL 70-105 Not Available [facility] [address] [place], [address], 05/25/2019 14:02:59 05/25/20 19 05/25/2019 BMP + ioniz ed calci um, serum or plasm a BUN 19 mg/dL 8-26 Not Available [facility] [address] [place], [address], 05/25/2019 14:02:59 05/25/20 19 05/25/2019 BMP + ioniz ed calci um, serum or plasm a crea 0.9 mg/dL .6-1.3 Not Available [facility] [address] [place], [address], 05/25/2019 14:02:59 05/25/20 19 05/25/2019 BMP + ioniz ed calci um, serum or plasm a HCT 51 %_pcv 38-51 Not Available [facility] [address], [place], [address], 05/25/2019 14:02:59 05/25/20 19 05/25/2019 BMP + ioniz ed calci um, serum or plasm a Hb 17.3 g/dL 12-17 Not Available [facility] [address], [place], [address], 05/25/2019 14:02:59 05/25/20 19 05/25/2019 BMP + ioniz ed calci um, serum or plasm a angap mmol/ L 10- Not Available [facility] [address], [place], [address], 05/25/2019 14:02:59 Result Notes None recorded. Procedures Surgical History Date Name Laterality Status Provider Name and Address Organization Details Recorded Time 05/25/20 19 Venipuncture - completed JEANNE MUÑOZ NP [address] [place], [address], [place] [facility] 05/25/2019 14:43:13 05/25/20 19 IV Start Procedure - completed JEANNE MUÑOZ NP [address] [place], [address], [place] [facility] 05/25/2019 14:42:58 amputation of toe completed JEANNE MUÑOZ NP [address] [place], [address], [place] [facility] 05/25/2019 14:01:17 Imaging Results None recorded. Procedure Notes None recorded. Medical Equipment None Reported. Allergies Allergen ID Allergen Name Allergen Category Reaction Reaction Severity Criticality Documentation Date Start Date Code Code System Note Provider Name and Address Organization Details Recorded Time 40108 hydrochlo rothiazid e medicatio n Not available Not available Not available 05/25/2019 5487 RxNorm JEANNE MUÑOZ NP [address] [place], [address], [place] [facility] 9 13:52:59 13897 Lexapro medicatio n Not available Not available Not available 05/25/2019 57713 1 RxNorm JEANNE MUÑOZ NP [address] [facility] [place], [address], [place] [facility] 9 13:53:14 88851 Norvasc medicatio n Not available Not available Not available 05/25/2019 12129 RxNorm JEANNE MUÑOZ, [employer] [address], [place], [address], [place] [facility] 9 13:53:20 83232 trazodone medicatio n Not available Not available Not available 05/25/2019 01015 RxNorm JEANNE MUÑOZ, [employer]ATION CHECKER [address], [place], [address], [place] [facility] 9 13:53:29 Medications Name Sig Start Date Stop Date Status Note LastModified by Organization Details LastModified Time cyclobenzap rine 10 mg tablet active Not Available Not Available Not Available terazosin 5 mg capsule 05/25 completed Not Available Not Available Not Available silver sulfadiazin e 1 % topical cream active Not Available Not Available Not Available prednisone 10 mg tablet active Not Available Not Available Not Available gabapentin 600 mg tablet active Not Available Not Available Not Available oxycodone 15 mg tablet active Not Available Not Available Not Available oxycodone-a cetaminophe n 10 mg-325 mg tablet 05/25 completed Not Available Not Available Not Available tamsulosin 0.4 mg capsule 05/25 completed Not Available Not Available Not Available potassium citrate ER 10 mEq (1,080 mg) tablet,exte nded release active Not Available Not Available Not Available losartan 25 mg tablet active Not Available Not Available No t Available sodium chloride 0.9 % intravenous solution 1 L administe red on scene. Time administe red: 14:45 2019 active Not Available Not Available Not Avai lable cefuroxime axetil 500 mg tablet active Not Available Not Available No t Available ondansetron 4 mg disintegrat ing tablet Take 1 tablet 3 times a day by oral route as needed. 2018 active Not Available Not Available Not Avai lable Zofran 2 mg/mL intravenous solution 4 mg IV administe red on scene. Time administe red: 14:20 2018 active Not Available Not Available Not Avai lable finasteride 5 mg tablet active Not Available Not Available Not Available Ventolin HFA 90 mcg/actuati on aerosol inhaler active Not Available Not Available Not Available Chantix 1 mg tablet 05/25 completed Not Available Not Available Not Available diclofenac 1.5 % topical drops active Not Available Not Available Not Available Eliquis 5 mg tablet active Not Available Not Available No t Available Vitals Date Recorded Body temperature Oxygen saturation Oxygen saturation in Arterial blood by Pulse oximetry Heart rate Respiratory rate Systolic And Diastolic Provider Name and Address Organization Details Last Updated DateTime 9 96.7 [degF] 100 % 100 % 75 /min 18 /min 122/78 mm[Hg] Not Available [facility] 9 13:56:48 Social History Question Answer Notes LastModified by Organizat ion Details LastModified Time Tobacco Smoking Status Current Every Day Smoker JEANNE MÑUOZ NP [address] [place], [address], [place] [facility] 05/25/2019 13:57:46 Marital Status Information not available 05/25/2019 What Was The Date Of Your Most Recent Tobacco Screening? 05/25/2019 Information not available 05/26/2019 How Much Tobacco Do You Smoke? 1 PPW Information not available 05/25/2019 How Many Years Have You Smoked Tobacco? 45 Information not available 05/25/2019 Sex: Unknown Functional Status None recorded. Mental Status None recorded. Family History Relationship Description Onset Age of this Age Resolved Age Notes LastModified by Organization Details LastModified Time Father Diabetes mellitus Not available 05/25 13:57:38 Medical History Condition Response Coronary Artery Disease N COPD Y Depression N Diabetes Y Cancer N Stroke N Asthma Y High Cholesterol N Pulmonary Embolism N Hypertension N Kidney Disease N Past Encounters Encounter ID Performer Location Encounter Start Date Encounter Closed Date Diagnosis/Indication Diagnosis SNOMED-CT Code Diagnosis ICD10 Code Diagnosis Note [id number] JEANNE MUÑOZ NP [facility] [address] [place] [address] 05/25/2019 13:49:24 05/26/2019 20:06:00 Nausea, vomiting and diarrhea 1623411 R11.2 Acute gastroenteritis 69 817315 K52.9 Acute exac erbation of chronic obstructive pulmonary disease 525314833 J44.1 On prednisone taper and cefuroxime . Health Concerns Section Related Observation LastModified by Organization Detai ls LastModified Time None Recorded Concern Status LastModified by Organization Details LastModified Time None Recorded Advance Directives Directive None Recorded Payers Insurance Date Sequence Insurance Name Policy Number Policy Olsen Covered Member ID Olsen Member ID Guarantor Name 05/25/2019 2 [place] [facility] Jeff Hawkins [id number] Jeff Hawkins 05/25/2019 1 [place] B-[place] [employer] Jeff Hawkins [id number] Jeff Hawkins 05/25/2019 1 *SELF PAY* Jeff [id number] Jeff Hawkins
--- OUTSIDE RECORDS SUMMARY | 2025-01-26 15:44 | XMS_ITS ---
Author Name [facility] Organization Unknown Care Team Organization Name Specialty Phone Email Start Date End Da te [facility] Lance Ramirez Primary [facility] 05/09/2022 02/18/2024
--- OUTSIDE RECORDS SUMMARY | 2025-01-26 15:44 | XMS_ITS | Clinical Summary ---
Author Organization [facility] Address [address] [place] [address] Phone Care Team Providers Care Thread Weaver Name Role Phone Lance Ramirez MD Primary Care Provider [phone] Allergies Active Allergy Reactions Criticality Noted Date Comments Amlodipine 08/15/2017 Escitalopram Dizziness 02/10/2009 Escitalopram Oxalate 08/15/2017 Hydrochlorothiazide 02/10/2009 Other reaction(s): Tremor Trazodone 08/15/2017 Medications ferrous sulfate 325 mg (65 mg elemental iron) tablet Take 1 Tablet by mouth daily. 4 Active albuterol HFA (PROAIR HFA ; PROVENTIL HFA ; VENTOLIN HFA) 90 mcg/actuation inhaler Inhale 2 Puffs into the lungs every 6 hours as needed for Cough, Wheezing or Shortness of Breath. 4 Active rosuvastatin (CRESTOR) 5 mg tablet Take 1 Tablet by mouth daily for 180 days. 4 Active aspirin 81 mg EC tablet Take 1 Tablet by mouth daily for 180 days. 3 Active ascorbic acid (VITAMIN C) 500 mg chewable tablet Chew 1 tablet (500 mg total) 1 (one) time each day. 3 Active senna (SENOKOT) 8.6 mg tablet Take 1 Tablet by mouth at bedtime as needed (Constipation) . 3 Active ammonium lactate (AMLACTIN) 12 % cream Apply topically 2 times daily as needed. Per java scala developer Active furosemide (LASIX) 20 mg tablet Take 1 Tablet by mouth daily as needed (edema). 3 Active terazosin (HYTRIN) 5 mg capsule Take 1 Cap by mouth at bedtime. 1 Active blood-glucose meter kit Use once daily to check a fasting sugar 0 Active FREESTYLE LANCETS MISC Use once daily to check a fasting sugar 0 Active blood sugar diagnostic (FreeStyle Lite Strips) test strip Use once daily to check a fasting sugar 0 Active sildenafiL (VIAGRA) 50 mg tablet Take 50 mg by mouth as needed. Active mv-min/folic/K1/l ycopen/lutein (MEN 50 PLUS MULTIVITAMIN ORAL) Take 1 Tab by mouth. Active finasteride (PROSCAR) 5 mg tablet Take 5 mg by mouth daily. Active pyridoxine (B-6) 100 mg tablet Take 100 mg by mouth daily. Active tiotropium (SPIRIVA) 18 mcg per inhalation capsule Place 1 capsule (18 mcg total) into inhaler and inhale 1 (one) time each day. 30 each 5 5 Active oxyCODONE (ROXICODONE) 5 mg immediate release tablet Take 1 tablet (5 mg total) by mouth every 4 (four) hours if needed. for severe pain 5 Active fluticasone propionate (FLONASE) 50 mcg/actuation nasal spray Administer 1 spray into each nostril 2 (two) times a day. Shake gently. Before first use, prime pump. After use, clean tip and replace cap. 16 g 5 Active benzonatate (TESSALON) 200 mg capsule Take 1 capsule (200 mg total) by mouth 3 (three) times a day if needed for cough. Do not crush or chew. 21 capsule 5 Active cetirizine (ZyrTEC) 10 mg tablet TAKE 1 TABLET BY MOUTH EVERY DAY 30 tablet 5 5 Active metoprolol tartrate (LOPRESSOR) 25 mg tablet TAKE 1 TABLET(25 MG) BY MOUTH TWICE DAILY 180 tablet 1 5 Active Eliquis 5 mg tablet TAKE 1 TABLET BY MOUTH TWICE DAILY 180 tablet 5 Active gabapentin (NEURONTIN) 600 mg tablet TAKE 1 TABLET(600 MG) BY MOUTH THREE TIMES DAILY 270 tablet 5 Active dilTIAZem CD (CARDIZEM CD) 120 mg 24 hr capsule TAKE 1 CAPSULE BY MOUTH DAILY 90 capsule 5 Active Active Problems Problem Noted Date Diagnosed Date CKD stage 3a, GFR 45-59 ml/min ([facility] V24, [facility] V28) 08/26/2024 Benign prostatic hyperplasia without lower urinary tract symptoms 08/10/2023 PAD (peripheral artery disease) ([facility] V24) Overview (04/14/2024): Last Assessment & Plan: Followed by vascular. Cholelithiasis 05/09/2023 Overview (04/14/2024): Incidental on imaging 05/2023, no symptoms Chronic kidney disease 03/27/2023 History of arthroplasty of left knee 01/19/2023 Aortic aneurysm ([facility] V24) 10/18/2021 Overview (04/14/2024): Last Assessment & Plan: Dilated sinus of Valsalva 4.3 cm. Will check yearly. Blood pressure stable today. Continue metoprolol. S/P amputation of lesser toe, left ([facility] V24) 08/18/2020 Splenomegaly 01/19/2020 Kidney cyst, acquired 01/09/2020 Overview (04/14/2024): Followed by urology. Ultrasound renal (01/06/2020): 5 x 4.5 x 4.7 cm right kidney exophytic cyst unchanged in size and appearance since 03/05/2019. Left kidney exophytic mass measuring 3.4 x 2.4 x 3 point centimeters increased from 1.9 x 2.1 x 3.0 cm. Splenomegaly increased on 09/21/2014. DM (diabetes mellitus), type 2 with renal complications ([facility] V24, [facility] V28) 04/27/2018 Assessment & Plan (08/05/2024 2:18 PM EST): Diabetic diet discussed. Check A1c. Orders: Hemoglobin A1c; Future History of amputation of rig ht foot ([facility] V24, [facility] V28) 04/27/2018 Overview (04/14/2024): R partial Alcoholic cirrhosis ([facility] V24, [facility] V28) 1 Chronic atrial fibrillation ([facility] V24, [facility] V28) 04/16/2018 Overview (04/14/2024): Last Assessment & Plan: He is in a rate controlled atrial fibrillation. Continue metoprolol at the current dose. Continue anticoagulation with Eliquis 5 mg twice daily for CVA prophylaxis. Risks and benefits of anticoagulation therapy were reviewed with the patient. He verbalizes understanding agrees to continue. DM (diabetes mellitus), type 2 with peripheral vascular complications ([facility] V24, [facility] V28) 04/16/2018 Microalbuminuria 04/16/2018 Nephrolithiasis 04/16/2018 Hypertension 01/16/2018 Overview (04/14/2024): Last Assessment & Plan: 110/64 in office today, well-controlled. Continue current regimen. Pulmonary emphysema ([facility] V24, [facility] V28) 0 09/19/2017 Pulmonary nodules 12/07/2016 Thrombocytopenia ([facility] V24) 12/26/2015 Diverticulosis 11/24/2015 Adenomatous colon polyp 10/29/2015 Overview (04/14/2024): 2020: tubular adenoma (again). Repeat 3 years Allergic rhinitis 08/10/2015 Alcoholic polyneuropathy ([facility] V24) 4 Erectile dysfunction 03/25/2013 Resolved Problems Problem Noted Date Diagnosed Date Resolved Date CKD (chronic kidney disease) stage 2, GFR 60-89 ml/min 08/26/2024 08/26/2024 Encounters Date Type Department Care Team Description 01/12/2025 Telephone [facility] [address] [place] [address] Kelli Dietz RN 12/29/2024 Telephone Internal Medicine - [facility] [address] [place] [phone] Lance Ramirez MD Forms/questionnaire s (SSBCI Eligibility) 12/15/2024 Telephone [facility] [address] [facility] [address] [place] [address] Shahid Burton MD 11/19/2024 Lab Requisition [facility] - Main Lab [address] [facility] [place] [place] [address] Jorge Aparicio MD Infection and inflammatory reaction due to internal right knee prosthesis, subsequent encounter from Last 3 Months Immunizations Name Administration Dates Next Due Hepatitis B Pediatric (Enger ix B; Recombivax HB) to less than 20 yo 11/04/2008 Influenza Quadravalent, MDCK , 0.5ml, preservative free (Flucelvax) 6mo and older 04/03/2012 Influenza trivalent, 0.5mL (Fluad) 65yo and olde r 05/16/2017,04/06/2016 Influenza trivalent, 0.5mL, preservative free (Fluarix; FluLaval; Fluzone) ages 6mo and older (Afluria) 3 years and older 04/28/2021,06/03/2014 Influenza trivalent, with pr eservative (Fluzone; Afluria) 6mo and older 04/30/2015 Influenza, Unspecified 05/22/2022,05/16/2017 Pneumococcal conjugate 13 va lent (Prevnar 13, PCV13) 2mo and older 07/29/2015 Pneumococcal polysaccharide 23 valent (Pneumovax 23) 2yo and older 02/09/2009 Td Tetanus diptheria (Tdvax) 7yo and older 08/04 Tdap Tetanus diptheria acell ular pertussis (Boostrix; Adacel) 7yo and older 02/09/2009 Zoster Live 06/13/2016 Surgical History Surgery Date Site/Laterality Comments ROTATOR CUFF REPAIR N/A PROCEDURE: HISTORICAL ROTATOR CUFF REPAIR TONSILLECTOMY PROCEDURE: HISTORICAL TONSILLECTOMY OTHER SURGICAL HISTORY PROCEDURE: ---- OTHER ----; COMMENT: 2 toes inleft foot amputation OTHER SURGICAL HISTORY 2021 Bilateral PROCEDURE: [place] AMPUTATION FOOT TRANSMETARSAL COLONOSCOPY PROCEDURE: HISTORICAL COLONOSCOPY Medical History Medical History Date Comments Anxiety state DX:Anxiety state Atrial fibrillation (CMS/HCC V24, CMS/HCC V28) DX:Atrial fibrillation (HCC) History of back pain DX:History of back pain Abdominal pain DX:Abdominal doug n Esophageal reflux DX:Esophageal reflux Insomnia DX:Insomnia Laennec's cirrhosis (alcohol ic) (CMS/HCC V24, CMS/HCC V28) DX:Laennec's cirrhosis (alc oholic) (HCC) Nephrolithiasis DX:Nephrolithias is Pain syndrome, chronic DX:Pain s yndrome, chronic Pulmonary emphysema (CMS/HCC V24, CMS/HCC V28) DX:Pulmonary emphysema (HCC) Pulmonary nodules DX:Pulmonary n odules DM (diabetes mellitus), type 2 with renal complications (CMS/HCC V24, CMS/HCC V28) 04/27/2018 DX:DM (diabetes mellitus), t ype 2 with renal complications (HCC) Foot amputation status 04/27/2018 DX:Foot a mputation status Kidney cyst, acquired 01/09/2020 DX:Kidney cyst, acquired History of arthroplasty of left knee 01/19/2023 DX:History of arthroplasty of left knee Cirrhosis of liver (CMS/HCC V24, CMS/HCC V28) DX:Cirrhosis of liver (HCC) Iron deficiency anemia DX:Iron d eficiency anemia Tubular adenoma of colon DX:Tubu lar adenoma of colon A-fib (CMS/HCC V24, CMS/[facility] V28) DX:A-fib (HCC) H/O foot surgery DX:H/O foot kay martha Cholelithiasis 05/09/2023 DX:Cholelithiasi s; COMMENT: Incidental on imaging 05/2023, no symptoms Family History Medical History Relation Name Comments Other: Other Brother neuropathy Diabetes Father Other cancer Father Other: peripheral neuropathy Father Coronary artery disease Maternal Grandfather Alzheimer's disease Maternal Grandmother cad Coronary artery disease Mother Other: Other Mother dementia Stroke Mother Coronary artery disease Paternal Grandfather Heart attack Paternal Grandfather Other: Other Sister 1 neurapathy, kid jolene issues Bladder Cancer Sister 2 Relation Name Status Comments Brother Alive Daughter Alive Father Maternal Grandfather Maternal Grandmother Mother Paternal Grandfather Paternal Grandmother Sister 1 Alive Sister 2 Alive Sister 3 Alive Social History Tobacco Use Types Packs/Day Years Used Date Smoking Tobacco: Every Day Cigarettes Started: 07/02/1965 Smokeless Tobacco: Never Alcohol Use Standard Drinks/Week Comments No 0 (1 standard drink = 0.6 oz pur e alcohol) Housing Instability Answer Date Recorde d Are you worried that in the next 2 months you may not have stable housing? No 06/12/2024 Food Access & Nutrition Answer Date Rec orded Do you have access to a vari ety of food including fruits and vegetables? No 06/12/2024 Access to Healthcare Answer Date Record ed Within the last 3 months, ho w many times did you visit the emergency department for your medical care? 2 06/12/2024 Health Literacy Answer Date Recorded How often do you need to hav e someone help you when you read instructions, pamphlets, or other written material from your doctor or pharmacy? Rarely 06/12/2024 Caregiver: How often do you need to have someone help you when you read instructions, pamphlets, or other written material from your doctor or pharmacy? Not on file 06/12/2024 Financial Risk Answer Date Recorded How hard is it for you to pa y for the very basics like food, housing, medical care, and air conditioning / heating? Not very hard 06/12/2024 Transportation Answer Date Recorded Has the lack of transportati on kept you from meetings, work, or from getting things needed for daily living? No Has the lack of transportati on kept you from medical appointments or from getting medications? No 06/12/2024 Social Isolation Answer Date Recorded How often do you feel lonely or isolated from th ose around you? Rarely 06/12/2024 Food Risk Answer Date Recorded Within the past 12 months we worried whether our food would run out before we got money to buy more. Never true 06/12/2024 Within the past 12 months th e food we bought just didn't last and we didn't have money to get more. Never true 06/12/2024 Education Answer Date Recorded Do you think completing more education or training, like finishing a GED, going to college, or learning a trade, would be helpful for you? N/A 06/12/2024 Living Situation Answer Date Recorded What is your living situation? 1 08/13/2023 Sex and Gender Information Value Date Recorded Sex Assigned at Not on file Legal Sex Male 11:21 AM EST Gender Identity Not on file Sexual Orientation Not on file Obstetrics History Last Filed Vital Signs Vital Sign Reading Time Taken Comments Blood Pressure 100/70 08/05/2024 1:29 PM EST Pulse 68 08/26/2024 3:30 PM EST Temperature - - Respiratory Rate - - Oxygen Saturation - - Inhaled Oxygen Concentration - - Weight 105 kg (230 lb 14.4 oz) 08/26/2024 3:30 P M EST Height 177.8 cm (5' 10 ) 08/05/2024 1:29 PM EST Body Mass Index 33.13 08/05/2024 1:29 PM EST Plan of Treatment Upcoming Encounters Date Type Department Care Team (Late st Contact Info) Description 02/03/2025 10:30 AM EDT Office Visit Internal Medicine - [address] [phone] Lance Ramirez MD [address] [place] [id number] 02/10/2025 8:30 AM EDT Appointment [facility] Ultrasound [address] [place] [phone] 02/26/2025 10:30 AM EDT Office Visit Vascular Surgery [facility] [address] [facility] [address] [place] [phone] Francisca Grey MD [address] [facility] [address] [place] [address] 03/11/2025 2:15 PM EDT Office Visit Internal Medicine - [address] [phone] Lance Ramirez MD [address] [place] [id number] 04/21/2025 10:45 AM EDT Office Visit General Surgery - [place] [address] [facility] [address] [place] [address] Caio Phillips, DO [address] [place] [address] 09/01/2025 2:15 PM EST Office Visit Nephrology - [facility] [address] [place] [address] Kris Merida MD [address] [place] [address] Health Maintenance Due Date Last Done Comments Hepatitis A Vaccines (1 of 2 - Risk 2-dose series) 09/28/1978 Hepatitis B Vaccines (1 of 3 - Risk 3-dose series) 2019 11/04/2008 COVID-19 Vaccine (3 - Pfizer risk series) 12/09/2020 11/11/2020, 10/21/2020 Zoster Vaccines (2 of 2) 05/15/2021 03/20/2021, 06/01 Abdominal Aortic Aneurysm (AAA) Screen 06/09/2022 Medicare Annual Wellness Visit 06/09/2022 Diabetes: Blood Sugar Control Test (HGBA1C) 06/10/2024 12/10/2023, 12/10/2023 Depression Screening 07/02/2024 Diabetes: Annual Foot Exam 11/04/2024 11/05/2023 Diabetes: Annual Retina Eye Exam 11/04/2024 11/05/2023 Diabetes: Annual Urine Albumin-Creatinine Ratio (uACR) 12/11/2024 12/12/2023 Influenza Vaccine (#1) 2025 , 05/22/2022, 04/19/2022, Additional history exists Diabetes: Annual GFR (Glomerular Filtration Rate) 04/04/2025 04/04/2024, 04/04/2024, 12/10/2023, Additional history exists Hypertension/CHF/CAD Annual BMP Blood Test 04/04/2025 04/04/2024, 04/04/2024, 12/10/2023, Additional history exists Social Influencers of Health Screening 06/12/2025 06/12/2024 Falls Risk Assessment 09/26/2025 09/26/2024 Cholesterol Screening (Lipid Panel) 04/18/2028 04/18/2023 DTaP,Tdap,and Td Vaccines (3 - Td or Tdap) 08/04/2029 08/04/2019, 02/09/2009 Colorectal Cancer Screening: Colonoscopy 04/18/2033 04/18/2023 Hepatitis C Screening Completed 06/23/2019 Pneumococcal Vaccine: 50+ Years Completed 06/10/2022, 07/29/2015, 02/09/2009, Additional history exists RSV Immunization Adult Patients Completed 07/07/2023 HIB Vaccines Aged Out No longer eligi ble based on patient's age to complete this topic HPV Vaccines Aged Out No longer eligi ble based on patient's age to complete this topic IPV Vaccines Aged Out No longer eligi ble based on patient's age to complete this topic MMR Vaccines Aged Out No longer eligi ble based on patient's age to complete this topic Meningococcal ACWY Vaccine Aged Out N o longer eligible based on patient's age to complete this topic Meningococcal B Vaccine Aged Out No l onger eligible based on patient's age to complete this topic RSV Immunization Patients Under 20 months Aged Out No longer eligible based on patient's age to complete this topic Varicella Vaccines Aged Out No longer eligible based on patient's age to complete this topic Procedures Procedure Name Priority Date/Time Associated Diagnosis Comments DIFFERENTIAL BODY FLUID STAT 11/19/2024 11:45 AM EDT Infection and inflammatory reaction due to internal right knee prosthesis, subsequent encounter CELL COUNT WITH REFLEX DIFFERENTIAL, BODY FLUID STAT 11/19/2024 11:45 AM EDT Infection and inflammatory reaction due to internal right knee prosthesis, subsequent encounter CRYSTAL IDENTIFICATION, BODY FLUID STAT 11/19/2024 11:45 AM EDT Infection and inflammatory reaction due to internal right knee prosthesis, subsequent encounter URIC ACID, BODY FLUID STAT 11/19/2024 11:45 AM EDT Infection and inflammatory reaction due to internal right knee prosthesis, subsequent encounter GLUCOSE, BODY FLUID STAT 11/19/2024 1 1:45 AM EDT Infection and inflammatory reaction due to internal right knee prosthesis, subsequent encounter CULTURE BODY FLUID WITH GRAM STAIN STAT 11/19/2024 11:45 AM EDT Infection and inflammatory reaction due to internal right knee prosthesis, subsequent encounter ANNUAL BMP BLOOD TEST Routine 04/04/2024 URINE ALBUMIN CREATININE RATIO Routine 12/12/2023 HEMOGLOBIN A1C Routine 12/10/2023 DIABETES EYE EXAM Routine 11/05/2023 DIABETES FOOT EXAM Routine 11/05/2023 COLONOSCOPY Routine 04/18/2023 LIPID PANEL Routine 04/18/2023 HEPATITIS C SCREENING Routine 06/23/2019 from Last 3 Months or Most Recently Relevant to Health Maintenance Results * Cell count with reflex differential, body fluid (11/19/2024 11:45 AM EDT) Body Fluid Total Nucleated Cells 354 /mm3 LAB HEMETOLOGY METHOD 11/19/2024 2:42 PM EDT [facility] Body Fluid RBC 52,000 /mm3 LAB HEMETOLOGY METHOD 11/19/2024 2:42 PM EDT [facility] Body Fluid Color Red 11/19/2024 2:42 PM EDT [facility] Body Fluid Clarity Cloudy 11/19/2024 2:42 PM EDT [facility] Body Fluid Source Knee, Right 11/19/2024 2:42 PM [facility] Synovial Fluid Structure of right knee region / Unknown 11/19/2024 11:45 AM EDT 11/19/2024 1:22 PM EDT [facility] - 11/19/2024 2:42 PM EDT No reference ranges have been established for body fluids. Clinical correlation recommended. us Jorge Aparicio MD LAB BODY FLUIDS AND STOOLS OR DERABLES Final Result Performing Organization Address [facility] Co de Phone Number [facility] [address] [place] [address], [place] [phone] * Culture body fluid with gram stain (11/19/2024 11:45 AM EDT) Fluid Culture No growth at 3 days LAB MICROBIOLOGY METHOD 11/22/2024 10:46 AM EDT [facility] Gram Stain Result No polymorphonuclear leukocytes, No epithelial cells, and No organisms noted 11/22/2024 10:46 AM EDT [facility] Synovial Fluid Structure of right knee region / Unknown 11/19/2024 11:45 AM EDT 11/19/2024 1:22 PM EDT Narrative [facility] - 11/22/2024 10:46 AM EDT Testing performed on unspun fluid, quantity not sifficient to spin. Jorge Aparicio MD LAB MICROBIOLOGY - GENERAL OR DERABLES Final Result Performing Organization Address [facility] de Phone Number [facility] [address] [place] [address], [place] [phone] * Differential body fluid (11/19/2024 11:45 AM EDT) Fluid Neutrophils % 43 % 11/19/2024 2:42 PM EDT [facility] Fluid Lymphocytes % 26 % 11/19/2024 2:42 PM EDT [facility] Fluid Monocytes/Macrop hages 28 % 11/19/2024 2:42 PM EDT [facility] Fluid Eosinophils % 3 % 11/19/2024 2:42 PM EDT [facility] Fluid Basophils % 0 % 11/19/2024 2:42 PM EDT [facility] Fluid Other Cells % 0 % 11/19/2024 2:42 PM EDT [facility] Synovial Fluid Structure of right knee region / Unknown 11/19/2024 11:45 AM EDT 11/19/2024 1:22 PM EDT Narrative [facility] - 11/19/2024 2:42 PM EDT No reference ranges have been established for body fluids. Clinical correlation recommended. us Jorge Aparicio MD LAB BODY FLUIDS AND STOOLS OR DERABLES Final Result Performing Organization Address [facility]/ZIP Co de Phone Number [facility] [address] [place] [address], [place] [phone] * Uric acid, body fluid (11/19/2024 11:45 AM EDT) Uric Acid, Fluid 6.2 See Comment mg/dL LAB CHEMISTRY METHOD 11/19/2024 2:16 PM EDT [facility] Synovial Fluid Structure of right knee region / Unknown 11/19/2024 11:45 AM EDT 11/19/2024 1:22 PM EDT Narrative [facility] - 11/19/2024 2:16 PM EDT No reference ranges have been established for body fluids. Clinical correlation recommended. us Jorge Aparicio MD LAB BODY FLUIDS AND STOOLS OR DERABLES Final Result Performing Organization Address City/[facility]/ZIP Co de Phone Number [facility] [address] [place] [address], [place] [phone] * Crystal identification, body fluid (11/19/2024 11:45 AM EDT) Crystals, Fluid No diagnostic crystals seen No diagnostic crystals seen 11/19/2024 2:46 PM EDT [facility] Synovial Fluid Structure of right knee region / Unknown 11/19/2024 11:45 AM EDT 11/19/2024 1:22 PM EDT Jorge Aparicio MD LAB BODY FLUIDS AND STOOLS OR DERABLES Final Result Performing Organization Address [facility] Co de Phone Number [facility] [address] [place] [address], [place] [phone] * Glucose, body fluid (11/19/2024 11:45 AM EDT) Pathologist [facility] Glucose, Fluid 33 See Comment mg/dL LAB CHEMISTRY METHOD 11/19/2024 2:16 PM EDT [facility] Synovial Fluid Structure of right knee region / Unknown 11/19/2024 11:45 AM EDT 11/19/2024 1:22 PM EDT Narrative [facility] - 11/19/2024 2:16 PM EDT No reference ranges have been established for body fluids. Clinical correlation recommended. Jorge Aparicio MD LAB BODY FLUIDS AND STOOLS OR DERABLES Final Result Performing Organization Address [facility] Co de Phone Number [facility] [address] [place] [address], [place] [phone] * Annual BMP Blood Test (04/04/2024) Pathologist [facility] Annual BMP Blood Test Abstracted Historical Provider HEALTH MAINTENANCE Final Result * Urine Albumin Creatinine Ratio (12/12/2023) Pathologist [facility] Urine Albumin Creatinine Ratio Abstracted Historical Provider HEALTH MAINTENANCE Final Result * Hemoglobin A1c (12/10/2023) Pathologist [facility] Hemoglobin A1C 4.9 <=6.5 % Blood Venous blood specimen / Unknown Historical Provider LAB BLOOD ORDERABLES Naty l Result * Diabetes Foot Exam (11/05/2023) [facility] Diabetes: Annual Foot Exam Abstracted Result [facility] Provider HEALTH MAINTENANCE Final Result * Diabetes Eye Exam (11/05/2023) [facility] Diabetes: Annual Retina Eye Exam ABstracted Result [facility] Provider HEALTH MAINTENANCE Final Result * Colonoscopy (04/18/2023) [facility] Colonoscopy No interpretation , Abstracted Anatomical Region Laterality Modality Other Result [facility] Provider HEALTH MAINTENANCE Final Result * (ABNORMAL) Lipid panel (04/18/2023) [facility] LDL/HDL Ratio 3 0 - 4 Triglycerides 63 0 - 150 mg/dL Cholesterol 124 0 - 200 mg/dL HDL 37(A) >=40 mg/dL LDL Cholesterol 75 0 - 100 mg/dL Blood Venous blood specimen / Unknown Result [facility] Provider LAB BLOOD ORDERABLES Naty l Result * Hepatitis C Screening (06/23/2019) [facility] Hepatitis C Screening Abstracted Result [facility] Provider HEALTH MAINTENANCE Final Result from Last 3 Months or Most Recently Relevant to Health Maintenance Insurance MEDIC[place] - [place] Care Teams Thread Weaver Relationship Specialty Start Date End Date Lance Ramirez MD [address] [place] [id number] PCP - General Internal Medicine 06/16/19
--- OUTSIDE RECORDS SUMMARY | 2025-01-26 15:44 | XMS_ITS | Clinical Summary ---
Author Organization [facility] Address [address] [place] [address] Care Team Providers Care Installation Tech Name Role Phone Lance Ramirez MD Primary Care Provider [phone] Allergies Active Allergy Reactions Criticality Noted Date Comments Amlodipine 02/06/2020 Escitalopram 02/06/2020 Hydrochlorothiazide 02/06/2020 Trazodone 02/06/2020 Medications Medication Sig Dispensed Refills Start Date End Date Status cyclobenzaprine (FLEXERIL) 10 MG tablet Take 10 mg by mouth 3 (three) times a day as needed for muscle spasms. 0 Active apixaban (ELIQUIS) 5 MG TABS tablet Take by mouth every 12 (twelve) hours. 0 Active furosemide (LASIX) 80 MG tablet Take 80 mg by mouth 2 (two) times a day. 0 Active polyethylene glycol (MIRALAX) 17 g packet Take 17 g by mouth daily. 0 Active gabapentin (NEURONTIN) 600 MG tablet Take 600 mg by mouth 3 (three) times a day. 0 Active calcium citrate-vitamin D (CITRACAL+D) 315-200 MG-UNIT per tablet Take 1 tablet by mouth 2 (two) times a day. 0 Active oxyCODONE (ROXICODONE) 15 MG immediate release tablet Take 15 mg by mouth every 4 (four) hours as needed for pain. 0 Active tamsulosin (FLOMAX) 0.4 MG CAPS Take 0.4 mg by mouth daily. 0 Active ondansetron (ZOFRAN) 8 MG tablet Take by mouth every 8 (eight) hours as needed for nausea. 0 Active losartan (COZAAR) tablet 25 mg Take 25 mg by mouth daily. 0 Active senna (SENOKOT) 8.6 MG tablet Take 1 tablet by mouth daily. 0 Active Active Problems No known active problems Social History Tobacco Use Types Packs/Day Years Used Date Smoking Tobacco: Every Day Cigarettes 0.3 Smokeless Tobacco: Never Comments:trying to quite Alcohol Use Standard Drinks/Week Comments Yes 0 (1 standard drink = 0.6 oz pur e alcohol) used to Sex and Gender Information Value Date Recorded Sex Assigned at Not on file Gender Identity Not on file Sexual Orientation Not on file Job Start Date Occupation Industry Not on file Not on file Not on file Last Filed Vital Signs Vital Sign Reading Time Taken Comments Blood Pressure 123/57 02/06/2020 3:14 PM EDT Pulse 79 02/06/2020 3:14 PM EDT Temperature 37.2 C (98.9 F) 02/06/2020 3:14 PM EDT Respiratory Rate - - Oxygen Saturation - - Inhaled Oxygen Concentration - - Weight 113.4 kg (250 lb) 02/06/2020 3:14 PM EDT Height 177.8 cm (5' 10 ) 02/06/2020 3:14 PM EDT Body Mass Index 35.87 02/06/2020 3:14 PM EDT Plan of Treatment Health Maintenance Due Date Last Done Comments Hepatitis C Screening 1960 COVID-19 Vaccine (#1) 03/31/1960 Depression Screening 1971 Preventative Health Evaluation 09/28/1977 Colon Cancer Screening (Colonoscopy) 09/28/2004 Shingrix-Zoster Vaccine (1 of 2) 09/28/2009 DTap / Tdap / Td (2 - Td or Tdap) 02/09/2019 02/09/2009 Fall Risk Assessment 09/28/2024 Pneumococcal Vaccine (3 of 3 - PPSV23 or PCV20) 09/28/2024 07/29/2015, 02/09/2009 Pneumococcal Vaccine (3 of 3 - PPSV23 or PCV20) 09/28/2024 07/29/2015, 02/09/2009 Influenza Vaccine (#1) 2025 7, 04/06/2016, 04/30/2015, Additional history exists RSV Adult > 60+ Yrs or (1 - 1-dose 75+ series) 09/28/2034 Hepatitis B Vaccines Aged Out No long er eligible based on patient's age to complete this topic RSV Ped < 20 months Aged Out No longe r eligible based on patient's age to complete this topic Care Teams Installation Tech Relationship Specialty Start Date End Date Lance Ramirez MD [address] [place] [address] [place] [address] PCP - General Internal Medicine 01/30/20
--- OUTSIDE RECORDS SUMMARY | 2025-01-26 15:44 | XMS_ITS | Patient Health Record ---
Author Organization [facility] Address [address] [place] [address] Care Team Providers Care Automatic Grinding Machine Operator Name Role Phone SHARDA ELLIS, JESUS Primary Care Provider Un available Darvin Villarreal MD Unavailable Unavailable Allergies Allergen (clinical drug ingredient) Drug/Non Drug Allergy documented on EMR Reaction Allergy Type Onset Date Status hydrochlorothiazide Hydrochlorothiazide Unknown Drug Aller gy Active escitalopram Lexapro Unknown Drug Allergy Acti ve amlodipine Norvasc Unknown Drug Allergy Active trazodone Trazodone HCl Unknown Drug Allergy Act maegan Reason For Referral No Information Medications Medication SIG (Take, Route, Frequency, Duration) Notes Start Date End Date Status Cyclobenzaprine HCl 1 tab Orally TID Active Advair Diskus Active Apixaban 5 MG as directed Orally Eliquis Active Calcium Active Spiriva Respimat Act maegan Gabapentin 600 MG 1 capsule Orally TID Active Spironolactone 50 MG 1 tablet Orally Onc e a day Active Furosemide 1 tab Oral Active oxyCODONE-Acetaminophen 10-325 MG Orally Not-Taking Albuterol Sulfate HFA Active Milk Thistle Extract Orally BID qd Active oxyCODONE HCl 15 MG 1 tablet Orally ever y 6 hrs Active Social History Tobacco Use: Social History Observation Description Date Details (start date - stop date) Current Smoker NA - NA Tobacco Use/Smoking Question Answer Notes Are you a current smoker How often do you smoke cigarettes? every day How many cigarettes a day do you smoke? 6-10 How soon after you wake up d o you smoke your first cigarette? 6-30 minutes Are you interested in quitting? Thinking about q uitting When did you start smoking? 1973 Plan Of Treatment No Information Insurance Providers Payer Name Payer Address Payer Phone Subscriber Number Group Number Insured Name Patient Relationship to Insured Coverage Start Date Coverage End Date [place] B [place] [address] [facility] [place] [phone] [id number] CYNTHIA HUMPHREY Self - patient is the insured [employer] of [place] [address] [place] [phone] [id number] CYNTHIA HUMPHREY Self - patient is the insured Medical (General) History Medical History History ICD Code COPD AFIB Leg cramps Edema neuropathy in feet ( limbs) Chronic Pain Right Shoulder Chronic Pain Cervical Pain Bilateral shoulder Pain Bilateral knee pain lumbar pain Surgical History Surgery Date(Month/Year) Hospitalization History Reason Date(Month/Year) Pt states that he was had re verse total shoulder repair on his right shoulder and stayed at the hospital overnight 01/2020
--- OUTSIDE RECORDS SUMMARY | 2025-01-26 15:44 | XMS_ITS | Clinical Summary ---
Author Organization [facility] Address [address] [facility] [address] [place] [phone] Phone Care Team Providers Care Material Damage Appraiser Name Role Phone Lance Ramirez MD Primary Care Provider [phone] Allergies Active Allergy Reactions Criticality Noted Date Comments Amlodipine 02/06/2020 Escitalopram 02/06/2020 Hydrochlorothiazide 02/06/2020 Trazodone 02/06/2020 Medications cyclobenzaprine (FLEXERIL) 10 MG tablet Take 10 mg by mouth 2 (two) times a day as needed. Active albuterol (VENTOLIN HFA) 90 mcg/actuation inhaler Inhale 2 puffs into the lungs every 4 (four) hours as needed. Active apixaban (ELIQUIS) 5 mg tablet Take 5 mg by mouth 2 (two) times a day. Active calcium citrate-vitamin D3 (CITRACAL+D) 315 mg-5 mcg (200 unit) per tablet Take 1 tablet by mouth 2 (two) times a day. Active finasteride (PROSCAR) 5 mg tablet Take 5 mg by mouth daily. Active furosemide (LASIX) 80 MG tablet Take 80 mg by mouth 2 (two) times a day. Active gabapentin (NEURONTIN) 600 MG tablet Take 600 mg by mouth 3 (three) times a day. Active losartan (COZAAR) 25 MG tablet Take 25 mg by mouth daily. Active ondansetron (ZOFRAN-ODT) [address] 4 mg under the tongue 3 (three) times a day as needed. Active oxyCODONE 15 MG immediate release tablet Take 15 mg by mouth every 4 (four) hours as needed. Active potassium citrate (UROCIT-K) 10 mEq SR tablet Take 10 mEq by mouth daily. Active senna (SENOKOT) 8.6 mg tablet Take 1 tablet by mouth daily. Active tamsulosin (FLOMAX) 0.4 mg Cap Take 0.4 mg by mouth daily. Active tiotropium bromide (SPIRIVA RESPIMAT) 1.25 mcg/actuation Mist Inhale 2 puffs into the lungs 2 (two) times a day. Active Social History Tobacco Use Types Packs/Day Years Used Date Smoking Tobacco: Light Smoker Cigarettes 0.2 46 Smokeless Tobacco: Never Tobacco Cessation:Ready to Q uit: Yes Comments:in the process of quitting Education Answer Date Recorded Are you interested in more education? Not on radha e 10/27/2022 Are you concerned about learning? Not on file 10/27/2022 No 10/27/2022 No 10/27/2022 Digital Access Answer Date Recorded No 11/25/2022 No 11/25/2022 No 11/25/2022 Reliable internet access at home? Not on file 11/25/2022 Device with a working camera? Not on file Sex and Gender Information Value Date Recorded Sex Assigned at Not on file Legal Sex Male 9:48 AM EST Gender Identity Not on file Sexual Orientation Not on file Last Filed Vital Signs Vital Sign Reading Time Taken Comments Blood Pressure - - Pulse - - Temperature - - Respiratory Rate - - Oxygen Saturation - - Inhaled Oxygen Concentration - - Weight 120.6 kg (265 lb 12. 8 oz) 06/16/2020 11:05 AM EST with shoes Height 180 cm (5' 10.87 ) 06/16/2020 11 :05 AM EST with shoes Body Mass Index 37.21 06/16/2020 11:05 AM EST Plan of Treatment Health Maintenance Due Date Last Done Comments CREATININE LEVEL 1959 LIPID PANEL 1959 POTASSIUM LEVEL 1959 DEPRESSION SCREENING 1971 SMOKING Hx and SMOKELESS TOBACCO SCREENING 09/28/1972 HEPATITIS C SCREENING 09/28/1977 HIV ONE-TIME SCREENING (18-6 5 YEARS) 09/28/1977 COLOGUARD 09/28/2004 COLONOSCOPY 09/28/2004 COLORECTAL CANCER SCREENING 09/28/2004 FIT TEST 09/28/2004 FOBT 09/28/2004 SIGMOIDOSCOPY 09/28/2004 VIRTUAL COLONOSCOPY 09/28/2004 PNEUMOCOCCAL VACCINES (50+ years) (2 of 2 - PPSV23) 04/06/2009 02/09/2009 ZOSTER VACCINES (1 of 2) 09/28/2009 COVID-19 VACCINE (2 - 2023-2 5 season) 2024 10/21/2020 ABDOMINAL AORTIC ANEURYSM (AAA) SCREENING 09/28/2024 Adult Td,Tdap Booster 08/04/2029 08/04/2019 , 02/09/2009 RSV VACCINE (1 - 1-dose 75+ series) 09/28/2034 HEPATITIS A VACCINES Aged Out No long er eligible based on patient's age to complete this topic HIB VACCINES Aged Out No longer eligi ble based on patient's age to complete this topic MENINGOCOCCAL VACCINES (ACWY) Aged Out No longer eligible based on patient's age to complete this topic MENINGOCOCCAL VACCINES (B) Aged Out N o longer eligible based on patient's age to complete this topic Medical Devices Not on file Insurance MEDICARE PART A & B [facility] MEDICARE PART A [place] [address] MEDICARE PART A & B [place] MEDICARE PART A & B HEALTH MEDICARE PART A & B [address] [place] [address] [address] MEDICARE PART A & [facility] [place] [address] MEDICARE PART A & [place] [facility] Care Teams Material Damage Appraiser Relationship Specialty Start Date End Date Lance Ramirez MD [address] [place] [id number] PCP - General Internal Medicine 05/10/20 Additional Source Comments The information contained in this document represents components of the legal health record. It is not the complete legal health record.[facility]
[2025-01-26 17:08] LABS: Prostate Specific Antigen 0.21 ng/mL (<0.05-4.0)
== END 2025-01-26 15:23 | disposition home or self-care (01) ==
LOC: HO.LAB 15:22
PROVIDERS: PCP Internal Medicine; Visit Provider Urology
DX: N40.1 Benign prostatic hyperplasia with lower urinary tract symptoms (principal); N13.8 Other obstructive and reflux uropathy
CPT/HCPCS: 36415; 84153

== ENCOUNTER 2025-04-30 11:02 | Outpatient (AMB) | payer OTHER, SELFPAY ==
--- OUTSIDE RECORDS SUMMARY | 2025-04-27 13:00 | XMS_ITS | Encounter Summary ---
Author Organization [facility] Address [address] [place] [address] Care Team Providers Care Card Maker Name Role Phone Kelly Luke MD Primary Care Provider [phone] Reason for Visit * Reason Comments Follow-up 2 weeks follow up ab dominal wall hernia repair Encounter Details Date Type Department Care Team ([facility] st Contact Info) Description 04/27/2025 1:00 PM EDT Office Visit General Surgery - [place] [address] [place] [address] Caio Phillips, DO [address] [place] [address] Ventral hernia without obstruction or gangrene (Primary Dx); S/P repair of ventral hernia Social History Tobacco Use Types Packs/Day Years Used Date Smoking Tobacco: Every Day Cigarettes 0.3 59.8 Started: 07/02/1966 Smokeless Tobacco: Never Comments:Smoking 5 cigs vaibhav y Alcohol Use Standard Drinks/Week Comments No 0 (1 standard drink = 0.6 oz pur e alcohol) rarely.... etoh hx Housing Instability Answer Date Recorde d Are you worried that in the next 2 months you may not have stable housing? No 06/12/2024 Food Access & Nutrition Answer Date Rec orded Do you have access to a vari ety of food including fruits and vegetables? No 06/12/2024 Access to Healthcare Answer Date Record ed Within the last 3 months, paulette w many times did you visit the [...] Date Recorded What is your living situation? Unrecognized valu e 06/12/2024 Interpersonal Safety Answer Date Record ed Physical Abuse Unrecognized value 04/03/2025 Verbal Abuse Unrecognized value 04/03/2025 Sex and Gender Information Value Date Recorded Sex Assigned at Not on file Legal Sex Male 11:21 AM EST Gender Identity Not on file Sexual Orientation Not on file documented as of this encounter Last Filed Vital Signs Vital Sign Reading Time Taken Comments Blood Pressure 111/72 04/27/2025 12:56 PM EDT Pulse 56 04/27/2025 12:56 PM EDT Temperature 36.2 C (97.1 F) 04/27/2025 12:56 PM EDT Respiratory Rate - - Oxygen Saturation - - Inhaled Oxygen Concentration - - Weight 104 kg (230 lb) 04/27/2025 12:56 PM EDT Height 177.8 cm (5' 10 ) 04/27/2025 12:56 PM EDT Body Mass Index 33 04/27/2025 12:56 PM EDT documented in this encounter Ordered Prescriptions Prescription Sig Dispense Quantity Refills Last Filled Start Date End Date acetaminophen (TylenoL) 325 mg tablet Take 2 tablets (650 mg total) by mouth every 6 (six) hours if needed for mild pain. 60 tablet 04/27/2025 documented in this encounter Progress Notes * Adilene Ha MA - 04/27/2025 1:00 PM EDT foll Cosigned by Caio Phillips DO at 04/27/2025 1:11 PM EDT * Caio Phillips DO - 04/27/2025 1:00 PM EDT Reason for visit: Follow-up -s/p robotic assisted ventral hernia repair with mesh History of Present Illness The patient is a 64-year-old gentleman who is seeing me for a second follow-up regarding a robotic-assisted ventral hernia repair with mesh. He reports a slight improvement in his condition, although he continues to experience some discomfort at the site of the 12 mm port. He has been managing the pain with Tylenol 650 mg but has exhausted his supply. Additionally, he mentions that he has been contacted by the lung cancer screening team. ROS GENERAL: No significant weight loss or fever RESPIRATORY: No cough or shortness of breath CARDIOVASCULAR: No chest pain GI: No abdominal discomfort, see HPI SKIN: No rash, jaundice ACTIVE MEDICATIONS: Medication list was reviewed/updated with the patient. Medications Taking[1] ALLERGIES: @ALL@ PHYSICAL EXAM: Visit Vitals BP 111/72 (BP Location: Right arm, Patient Position: Sitting, BP Cuff Size: Small adult) Pulse 56 Temp 36.2 ??C (97.1 ??F) (Temporal) Ht 1.778 m (70 ) Wt 104 kg (230 lb) BMI 33.00 kg/m?? Smoking Status Every Day BSA 2.21 m?? APPEARANCE: Alert and in no acute distress EYES: conjunctiva and sclera normal. HEART: RRR LUNG: non-labored respirations, patient is comfortable on room air without adventitious sounds Physical Exam General: Patient appears in no acute distress. Gastrointestinal: Surgical site at the abdomen shows healing with mild redness. No signs of infection. No recurrence Skin: Mild redness at the surgical site. EXTREMITIES: Extremities warm and well perfused without edema NEURO: Awake, alert and oriented, moves all extremities SKIN: Skin color, texture normal. LABS: Lab Results Component Value Date WBC 5.0 03/25/2025 HGB 11.5 (L) 03/25/2025 HCT 38.5 (L) 03/25/2025 MCV 99.0 (H) 03/25/2025 Lab Results Component Value Date NA 136 02/15/2025 K 4.3 02/15/2025 CO2 27 02/15/2025 CL 107 02/15/2025 BUN 13 02/15/2025 ALKPHOS 121 02/15/2025 IMAGING: none ................................................................................ ............................................................. ASSESSMENT Assessment & Plan 1. Postoperative status following robotic-assisted ventral hernia repair with mesh. Reports a pinching sensation at the site of the 12 mm port, which is expected to improve over time.Redness observed is within normal limits and not a cause for concern. Advised to take Tylenol 650 mg for pain management. A prescription for Tylenol will be sent to the pharmacy. 2. Lung cancer screening. Reminded to follow up with the lung cancer screening team to keep up with CT scans. Follow-up in 2 months. It was a pleasure seeing Mr. Jeff [facility] at [facility] today. The patient has been instructed to call with any additional questions or concerns. @ESIG@ cc: [1] Outpatient Medications Marked as Taking for the 04/27/25 encounter (Office Visit) with Caio Phillips, DO Medication Sig Dispense Refill acetaminophen (TYLENOL) 500 mg tablet Take 1.5 tablets (750 mg total) by mouth every 6 (six) hours if needed for mild pain. 60 tablet 0 albuterol HFA (PROAIR HFA ; PROVENTIL HFA ; VENTOLIN HFA) 90 mcg/actuation inhaler 2 puffs every 6 (six) hours if needed. ascorbic acid (VITAMIN C) 500 mg chewable tablet Chew 1 tablet (500 mg total) 1 (one) time each day. aspirin 81 mg EC tablet Take 1 tablet (81 mg total) by mouth 1 (one) time each day. blood sugar diagnostic (FreeStyle Lite Strips) test strip Use once daily to check a fasting sugar blood-glucose meter kit Use once daily to check a fasting sugar cyclobenzaprine (FLEXERIL) 5 mg tablet Take 1 tablet (5 mg total) by mouth at bedtime as needed formuscle spasms. 14 tablet 0 dilTIAZem CD (CARDIZEM CD) 120 mg 24 hr capsule TAKE 1 CAPSULE BY MOUTH DAILY 90 capsule 1 Eliquis 5 mg tablet TAKE 1 TABLET BY MOUTH TWICE DAILY 180 tablet 1 ferrous sulfate 325 mg (65 mg elemental iron) tablet Take 1 tablet (325 mg total) by mouth 1 (one) time each day. 90 tablet 0 finasteride (PROSCAR) 5 mg tablet Take 1 tablet (5 mg total) by mouth 1 (one) time each day. fluticasone propionate (FLONASE) 50 mcg/actuation nasal spray Administer 1 spray into each nostril 2 (two) times a day. Shake gently. Before first use, prime pump. After use, clean tip and replace cap. 16 g 0 FREESTYLE LANCETS MISC Use once daily to check a fasting sugar furosemide (LASIX) 20 mg tablet Take 1 Tablet by mouth daily as needed (edema). gabapentin (NEURONTIN) 600 mg tablet TAKE 1 TABLET(600 MG) BY MOUTH THREE TIMES DAILY 270 tablet 1 metoprolol tartrate (LOPRESSOR) 25 mg tablet TAKE 1 TABLET(25 MG) BY MOUTH TWICE DAILY 180 tablet 1 mv-min/folic/K1/lycopen/lutein (MEN 50 PLUS MULTIVITAMIN ORAL) Take 1 Tab by mouth. oxyCODONE (ROXICODONE) 5 mg immediate release tablet Take 1 tablet (5 mg total) by mouth every 6 (six) hours if needed for severe pain. Max Daily Amount: 20 mg 12 tablet 0 pyridoxine (B-6) 100 mg tablet Take 1 tablet (100 mg total) by mouth 1 (one) time each day. senna (SENOKOT) 8.6 mg tablet Take 1 Tablet by mouth at bedtime as needed (Constipation). sildenafiL (VIAGRA) 50 mg tablet 1 tablet (50 mg total) if needed. terazosin (HYTRIN) 5 mg capsule Take 1 capsule (5 mg total) by mouth at bedtime. umeclidinium (INCRUSE ELLIPTA) 62.5 mcg/actuation inhalation Inhale 1 puff by mouth 1 (one) time each day. 1 each 12 documented in this encounter Plan of Treatment Upcoming Encounters Date Type Department Care Team (Late st Contact Info) Description 05/05/2025 11:[address] [facility] Scan [address] [place] [phone] 06/09/2025 11:30 AM EST Office Visit Internal Medicine - [facility] [address] [place] [address] Luis Fernando Martinez MD [address] [place] [address] 07/07/2025 11:00 AM EST Office Visit General Surgery - [place] [address] [facility] [address] [place] [phone] Caio Phillips DO [address] [place] [phone] 08/12/2025 10:30 AM EST Office Visit Gastroenterology - [address] [facility] [address] [facility] [address] [place] [address] Jane Mcgill PA [address] [place] [phone] 09/01/2025 2:15 PM EST Office Visit Nephrology - [address] [phone] Kris Merida MD [address] [place] [address] 2025 11:45 AM EDT Office Visit Pulmonology - [place] [address] [place] [phone] Edgardo Hoffmann MD [address] [place] [address] 10/26/2025 11:00 AM EDT Office Visit Internal Medicine - [address] [phone] Kelly Luke MD [address] [place] [address] documented as of this encounter Goals Goal Patient Goal Type Associated Problems Recent Progress Patient-Stated? Author Autogenerat ed Goal Care Plan Autogenerated Problem No Caio Phillips D, DO documented as of this encounter Visit Diagnoses Diagnosis Ventral hernia without obstruction or gangrene- Primary Unspecified ventral hernia without mention of obstruction or gangrene S/P repair of ventral hernia Other postprocedural status documented in this encounter Additional Health Concerns Active Problems Noted Date Diagnosed Date Autogenerated Problem 04/04/2025 documented as of this encounter Care Teams Card Maker Relationship Specialty Start Date End Date Kelly Luke MD [address] [place] [address] PCP - General Internal Medicine 03/11/25 documented as of this encounter
--- NOTE | 2025-04-30 11:08 | A.OFFVIS_ITS ---
Intake Visit Reasons: f/u labs and kidney stones Intake Note: Patient is Present for Cystoscopy Urology Med: Terazosin, Finasteride, Vitamin B6 Antibiotic Allergy: None Blood Thinner: Eliquis Imaging : Abd CT 02/15/25 Marketing Research Analyst Required: No Accompanied by: Self / Same As Patient Allergies amlodipine (From NORVASC) Allergy (Intermediate, Verified 04/30/25 11:08) TREMORS hydrochlorothiazide (HYDROCHLOROTHIAZIDE) Allergy (Intermediate, Verified 04/30/25 11:08) DIZZINESS trazodone (TRAZODONE) Allergy (Intermediate, Verified 04/30/25 11:08) DIZZINESS escitalopram (From LEXAPRO) Adverse Reaction (Intermediate, Verified 04/30/25 11:08) DIZZINESS HPI Comments Details: Jeff Hawkins is a very pleasant male. He is a patient of Dr Ramirez. He seen for the following urologic conditions. - lower urinary tract symptoms - renal cyst in stones Recent CT - 9 mm left lower pole stone, 4 mm distal right ureter Discussed left ESWL Cystoscopy performed. Grade 2 trabeculation with small diverticulum and cellules on dome of bladder Prostate small and relatively open Microhematuria Persistent 2+ blood in urine Lower urinary tract symptoms Baseline on finasteride Symptoms - 09/19 nocturia minimal, effective stream, emptying Current therapy finasteride Nephrolithiasis/Urolithiasis: Discussed ultrasound No stones Urolithiasis was diagnosed 01/[address] for dark urine at [facility] [place]. The patient previously had kidney stones whose composition w unknown. Laboratory investigations include no recent labs. 24 Hour urine evaluation none on file. Prior treatment(s) include 11/17 , ESWL, left 03/20 , ESWL, left. Prior imaging includes 01/16 , a CT (computed tomography) scan of the abdomen/pelvis (stone protocol), showing radiodense stone(s), , on the left, 2-5 mm with punctate calcium 10/18 , a CT (computed tomography) scan of the abdomen/pelvis (stone protocol) 11mm left UPJ stone with hydroneprhosis 10/18 , a renal ultrasound, bilateral ureteric jets suggesting not fully obstructing 11/17 , a renal ultrasound, showing radiodense stone(s), left 13mm lower pole, no hydro 03/20 , a renal ultrasound 6mm left LLP, bilateral cysts 2cm 10/19 ,, a KUB x-ray, showing no evidence of stones 01/18 , a renal ultrasound, , showing radiodense stone(s), on the left, bilateral cysts 09/19 renal ultrasound, right-sided 5 cm complex cyst and no stones - 03/22 renal ultrasound 5 cm cyst right side - 03/23 RENAL ULTRASOUND BILATERAL 5 CM CYST UNCHANGED - 03/24 renal ultrasound stable cyst, small stone right side Current therapeutic plan will be - keep on vit B6 PFSH Medical History COVID-19 vaccine series completed COPD (chronic obstructive pulmonary disease) Cirrhosis Renal calculi Osteomyelitis Diabetes Atrial fibrillation Degenerative arthritis of knee, bilateral Amputation of right great toe Morbid obesity Charcot foot due to diabetes mellitus terminologist (current) use of opiate analgesic Chronic pain syndrome Gout, arthritis Knee osteoarthritis Surgical History H/O colonoscopy Hx of rotator cuff surgery Hx of foot surgery Hx of lithotripsy Hx of amputation Social History Household Members Other:: roommate Are you a primary family member caretaker to a significant other at home: No Do you presently have visiting nurse or other home services: No Patient Tobacco Use Status: Current everyday Tobacco user Tobacco use type: Cigarette Cigarettes Per Day: 10 Years Smoked: 45 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 Review of Systems Const Denies chills and Denies fever(s) Card Reports no additional complaints and Denies syncope Resp Denies cough GI Denies abdominal pain and Denies heartburn Reports as per HPI and Denies change in libido Neuro Denies syncope Psych Denies change in libido Endo Denies change in libido Physical Exam Const General: cooperative, healthy appearing, comfortable and no acute distress Orientation/consciousness: patient oriented x3 HEENT Face and sinus: Yes normal facial exam Mouth: moist mucous membranes Neck Neck: Yes normal visual inspection, Yes full ROM and Yes trachea midline Chest Chest palpation & inspection: normal inspection of the chest Resp Effort & Inspection: normal respiratory effort, able to speak in complete sentences and no respiratory distress GI Inspection: Yes normal to inspection Back/Spine/Pelvis Cervical Spine: normal cervical lordosis Thoracic/Lumbar Spine: thoracic and lumbar spine normal to inspection Skin General skin exam: no rashes or lesions noted Neuro General: patient oriented x3, gait normal, tone normal and moves all extremities Extrem General: Yes normal to inspection and Yes capillary refill normal Office Procedures Cystoscopy Consent Discussed risk and benefit or proposed procedure with the patient. Information consent for procedure given to the patient. Discussed technical aspects, risks, benefits and alternatives in full. Addressed all of the patient's questions and concerns regarding the procedure. The patient demonstrated knowledge and understanding. They wish to proceed with this procedure. Preparation The patient was prepped in the usual manner. A waste water operator was present and in the room. Genitalia was prepped with betadine solution in a sterile manner. Lidocaine Jelly 2% was placed into the urethra and 16Fr flexible Olympus cystoscope was inserted into the meatus after adequate lubrication. Procedure Cystoscopy performed using a disposable Urovue digital 16 [place] cystoscope. Meatus circumcised Urethra anterior and posterior urethra normal Prostatic Urethra unremarkable - relatively short with minimal median lobe Bladder examination with retroflexion of cystoscope Bladder Orifices normal shape and position Bladder Capacity Normal Trabeculations grade 1/2 on dome Cellule Formation yes on dome Diverticulum Formation small on dome Mucosal Erythema None Bladder Tumor None 52084-[id number] DISPOSABLE SCOPE URO-G FLEXIBLE SCOPE Procedure code (CPT) selection complete Office Meds lidocaine HCl 2 % mucosal jelly in applicator Performing Provider: Haroldo Butterfield MD Performing Location: [facility] Administered by: Erika Calloway RN on 04/30/25 11:35 Dose Route Admin Location Dispensed Lot Number Expiration Date NDC Packaging Sales Representative 10 mL intra-urethral 10 mL nitrofurantoin monohydrate/macrocrystals 100 mg capsule Performing Provider: Haroldo Butterfield MD Performing Location: [facility] Administered by: Erika Calloway RN on 04/30/25 11:35 Dose Route Admin Location Dispensed Lot Number Expiration Date NDC Packaging Sales Representative 100 mg PO 1 cap Results AMB Urinalysis, Automated UA Leukoctes 15 Shree/uL Last Edit by DON Thomas on 04/30/25 11:28 UA Nitrite Negative Last Edit by DON Thomas on 04/30/25 11:28 UA Urobilinogen 0.2 mg/dL Last Edit by Anabel Fleming [facility] on 04/30/25 11:28 UA Protein 100 mg/dL Last Edit by Anabel Colon, [facility] on 04/30/25 11:28 UA pH 6.0 Last Edit by Anabel Colon, [facility] on 04/30/25 11:28 UA Blood 200 Joseph/uL Last Edit by Anabel Colon, [facility] on 04/30/25 11:28 UA Specific Buford 1.015 Last Edit by Anabel Colon, [facility] on 04/30/25 11:2 8 UA Ketone Negative Last Edit by Anabel Colon, [facility] on 04/30/25 11:28 UA Bilirubin 1 mg/dL Last Edit by Anabel Colon, [facility] on 04/30/25 11:28 UA Glucose 0 mg/dL Last Edit by Anabel Colon, [facility] on 04/30/25 11:28 Results Reviewed Results Reviewed: Laboratory Last Values Urine pH (Auto) 6.0 04/30/25 11:27 Specific Buford (Auto) 1.015 04/30/25 11:27 Urine Protein (Auto) 100 mg/dL 04/30/25 11:27 Glucose (UA)(Auto) 0 mg/dL 04/30/25 11:27 Urine Ketones (Auto) Negative 04/30/25 11:27 Urine Blood (Auto) 200 Joseph/uL 04/30/25 11:27 Urine Nitrite (Auto) Negative 04/30/25 11:27 Urine Bilirubin (Auto) 1 mg/dL 04/30/25 11:27 Urine Urobilinogen (Auto) 0.2 mg/dL 04/30/25 11:27 Leukocyte Esterase (Auto) 15 Shree/uL 04/30/25 11:27 Assessment & Plan Assessment & Plan (1) Nephrolithiasis: Code(s): N20.0 - Calculus of kidney Category: Medical (2) Nocturia more than twice per night: Code(s): R35.1 - Nocturia Category: Medical (3) BPH w urinary obs/LUTS: Code(s): N40.1 - Benign prostatic hyperplasia with lower urinary tract symptoms; N13.8 - Other obstructive and reflux uropathy Category: Medical Plan Extracorporeal Shock Wave Lithotripsy We discussed the nature of the decision and reasonable alternatives for performing the above surgery. Interventions include chemical dissolution, ESWL, ureteroscopy with laser lithotripsy and stent placement, PCNL. Options such as medical therapy were discussed. The relative uncertainties and benefits related to each alternate procedure were adequately discussed. General surgical risks including, but not limited to, pain, bleeding, infection, myocardial infarction, pulmonary embolus, deep vein thrombosis and cerebrovascular accident which may result in further hospitalization were discussed. Full disclosure of the procedure as well as all major risks, benefits and complications were discussed including but not limited to risks of bleeding, injury to the kidney with hematoma or erick-hematoma, failure to fragments stone, potential for ureteric obstruction from stone passage and need for secondary procedures. There is a small long-term risk of hypertension and a question elise of diabetes. Success rate of fragmentation and passage is approximately 70- 75%. This is compared to the risks and benefits for ureteroscopy which has a higher success rate but is a more invasive procedure. The success rate of the procedure was discussed. Success of the procedure in the short-term does not necessarily guarantee that long-term success will be maintained. Suitable follow up will need to be maintained. The patient showed understanding of the discussion as well as the typical recovery time, and the outpatient nature of this procedure. Opportunity was given for questions. Repeat-back protocol used to confirm understanding. They wish to proceed with left 9 mm ESWL Orders: Orders AMB Cystoscopy Today R31.29 - Other microscopic hematuria Patient Instructions: This note is constructed using voice recognition software. While every effort has been made to ensure accuracy cytology laboratory manager errors may have been included. Imaging studies, laboratory and physical exam results were discussed and reviewed in detail. No major barriers to patient understanding were identified. An opportunity to ask questions regarding the treatment plan was provided. All questions were answered. The patient expressed understanding and agreement with the above treatment plan. The patient is aware they should contact our office by phone for worsening of their current condition or the appearance of new urologic symptoms. Compliance is encouraged with any medications and followup testing that is ordered. It is a privilege to participate in the urologic care of your patient. If you have any questions or concerns regarding treatment for the above conditions, or other urologic issues, please do not hesitate to contact me. The office telephone contact is [phone]. Sincerely, Dr Haroldo Butterfield MD, [facility] - Urology Compassionate Specialist Care for the Genitourinary System Coding Level of Care Code Est Pt Level 4 (31800) Complex EM visit Add On G2211 Diagnoses Nephrolithiasis N20.0 Nocturia more than twice per night R35.1 BPH w urinary obs/LUTS N40.1; N13.8 CPT Codes Cystoscopy - CPT: 50587-Rriegsxsst ([id number])
--- OUTSIDE RECORDS SUMMARY | 2025-04-30 13:48 | XMS_ITS | Data Portability ---
Author Organization [place] - [facility] Address [address] [place] [id number] Care Team Providers Care Gift Shop Manager Name Role Phone EDE RAMIREZ Primary Care Provider Assessment Encounter Date Assessment Date Assessment LastModified by Organization Details LastModified Time 05/25/2019 05/25/2019 Overview/History : 58-year-old male, new to [facility], with a past medical history that includes [...] I have accessed patient records on the [employer]. This information was pertinent in my medical decision making today. This note was dictated using speech recognition software. Minor errors in lineman a class may be present. Attempt at proofreading was made to minimize any errors. Time On Scene with Patient: 00:57:45 Not available 05/25/2019 19:37:24 Plan of Treatment Reminders Order Date Submit Date Provider Last Modified By Organization Details Last Modified Time Details Appointments None recorded. Lab BMP + ionized calcium, serum or plasma 2018 [email or web address] [facility], [address] [place], [address], 9 14:19:47 Referral None recorded. Procedures None recorded. Surgeries None recorded. Imaging None recorded. Medication Orders sodium chloride 0.9 % intraveno us solution 2018 [email or web address] Not available 0 18:54:23 Zofran 2 mg/mL intraveno us solution 2018 019 [email or web address] [id number], [address] [place], [place], [id number], 9 14:19:47 ondansetr on 4 mg disintegr ating tablet 2018 INTERFACE [facility][id number], [address] [place], [place], [id number], 9 14:34:18 Patient TargetsNo targets recorded. Patient Instructions Encounter Date Encounter Id Patient Instructions Last Modified By Organization Details Last Modified Time 05/25/2019 [id number] Gastroenteritis: Gastroenteritis can cause nausea, vomiting, diarrhea, [...] Keep uncooked meats away from cooked and woutv-ol-yrm foods. Follow-up care Follow up with your [...] Available [facility] [address] [place], [address], 05/25/2019 14:02:59 05/25/20 19 05/25/2019 BMP + ioniz ed calci um, serum or plasm a K 3.8 mmol/ L 3.5-4. 9 Not Available [facility] [address] [place], [address], 05/25/2019 14:02:59 05/25/20 19 05/25/2019 BMP + ioniz ed calci um, serum or plasm a cL 105 mmol/ L 98-109 Not Available [facility] [address] [place], [address], 05/25/2019 14:02:59 05/25/20 19 05/25/2019 BMP + ioniz ed calci um, serum or plasm a ica 1.01 mmol/ L 1.12-1 .32 Not Available [facility] [address] [place], [address], 05/25/2019 14:02:59 05/25/20 19 05/25/2019 BMP + ioniz ed calci um, serum or plasm a TCO2 24 mmol/ L 24-29 Not Available [facility] [address] [place], [address], 05/25/2019 14:02:59 05/25/20 19 05/25/2019 BMP + ioniz ed calci um, serum or plasm a glu 97 mg/dL 70-105 Not Available [facility] [address] [place], [address], 05/25/2019 14:02:59 05/25/20 19 05/25/2019 BMP + ioniz ed calci um, serum or plasm a BUN 19 mg/dL 8-26 Not Available [facility] [address] [place], [address], 05/25/2019 14:02:59 05/25/20 19 05/25/2019 BMP + ioniz ed calci um, serum or plasm a crea 0.9 mg/dL .6-1.3 Not Available [facility] [address] [place], [address], 05/25/2019 14:02:59 05/25/20 19 05/25/2019 BMP + ioniz ed calci um, serum or plasm a HCT 51 %_pcv 38-51 Not Available [facility] [address], [place], [address], 05/25/2019 14:02:59 05/25/20 19 05/25/2019 BMP + ioniz ed calci um, serum or plasm a Hb 17.3 g/dL 12-17 Not Available [facility] [address], [place], [address], 05/25/2019 14:02:59 05/25/20 19 05/25/2019 BMP + ioniz ed calci um, serum or plasm a angap mmol/ L 10- Not Available [facility] [address], [place], [address], 05/25/2019 14:02:59 Result Notes None recorded. Procedures Surgical History Date Name Laterality Status Provider Name and Address Organization Details Recorded Time 05/25/20 19 Venipuncture - completed JEANNE MUÑOZ NP [address] [place], [address], [place] [facility] 05/25/2019 14:43:13 05/25/20 19 IV Start Procedure - completed JEANNE MUÑOZ NP [address] [place], [address], [place] [facility] 05/25/2019 14:42:58 amputation of toe completed JEANNE MUÑOZ NP [address] [place], [address], [place] [facility] 05/25/2019 14:01:17 Imaging Results None recorded. Procedure Notes None recorded. Medical Equipment None Reported. Allergies Allergen ID Allergen Name Allergen Category Reaction Reaction Severity Criticality Documentation Date Start Date Code Code System Note Provider Name and Address Organization Details Recorded Time 07726 hydrochlo rothiazid e medicatio n Not available Not available Not available 05/25/2019 5487 RxNorm JEANNE MUÑOZ NP [address] [place], [address], [place] [facility] 9 13:52:59 63545 Lexapro medicatio n Not available Not available Not available 05/25/2019 88242 1 RxNorm JEANNE MUÑOZ NP [address] [facility] [place], [address], [place] [facility] 9 13:53:14 33091 Norvasc medicatio n Not available Not available Not available 05/25/2019 75101 RxNorm JEANNE MUÑOZ, WRAPPER COUNTER [address], [place], [address], [place] [facility] 9 13:53:20 10133 trazodone medicatio n Not available Not available Not available 05/25/2019 82924 RxNorm JEANNE MUÑOZ, WRAPPER COUNTER [address], [address] [place] [place], [address], [place] [facility] 9 [...] /min 18 /min 122/78 mm[Hg] Not Available [facility] 9 13:56:48 Social History Question Answer Notes LastModified by Organizat ion Details LastModified Time Tobacco Smoking Status Current Every Day Smoker JEANNE MUÑOZ NP [address] [place], [address], [place] [facility] 05/25/2019 13:57:46 Marital Status [...] available 05/25 13:57:38 Medical History Condition Response Diabetes Y Coronary Artery Disease N Cancer N Stroke N Asthma Y COPD Y Depression N High Cholesterol N Pulmonary Embolism N Hypertension N Kidney Disease N Past Encounters Encounter ID Performer Location Encounter Start Date Encounter Closed Date Diagnosis/Indication Diagnosis SNOMED-CT Code Diagnosis ICD10 Code Diagnosis IMO Codes Diagnosis Note [id number] JEANNE MUÑOZ NP [facility] [address] [place] [address] 05/25/2019 13:49:24 05/26/2019 20:06:00 Nausea, vomiting and diarrhea 9360652 R11.2 Acute gastroenteritis 69 718371 K52.9 Acute exac erbation of chronic obstructive pulmonary disease 698556344 J44.1 On prednisone taper and cefuroxime . Health Concerns Section Related Observation LastModified by Organization Detai ls LastModified Time None Recorded Concern Status LastModified by Organization Details LastModified Time None Recorded Advance Directives Directive None Recorded Payers Insurance Date Sequence Insurance Name Policy Number Policy Olsen Covered Member ID Olsen Member ID Guarantor Name 05/25/2019 2 [place] [facility] Jeff Hawkins [id number] Jeff Hawkins 05/25/2019 1 [place] B[place] [employer] Jeff Hawkins [id number] Jeff Hawkins 05/25/2019 1 *SELF PAY* Jeff Hawkins [id number] Jeff Hawkins Notes Date Note Type Note Provider Name and Address Organization Details Recorded Time 05/25/2019 text/html 58-year-old male, new to [employer], with a past medical history that includes but not limited to diabetes, osteoarthritis, neuropathy, AFib on Eliquis, COPD, was evaluated for complaints of vomiting and diarrhea over the past 2 days. He has had approximately 4-5 episodes of vomiting per day and 6 episodes of diarrhea. He continues to feel nauseated and last vomited this morning. He was recently treated for a COPD exacerbation with a prednisone taper and cefuroxime. He is having difficulty keeping his medications down because of the vomiting. He denies any fever, chills, sweats, headache, neck pain, chest pain, back pain, abdominal pain, dysuria, hematuria, arthralgias, myalgias or any rashes. He states that he feels wiped out . JEANNE MUÑOZ, DUSTY [address] [place], [address], [place] [facility] 05/25/2019 19:37:42
--- OUTSIDE RECORDS SUMMARY | 2025-04-30 13:48 | XMS_ITS | Clinical Summary ---
Author Organization [facility] Address [address] [place] [address] Phone Care Team Providers Care Mmi Teacher Name Role Phone Lance Ramirez MD Primary Care Provider [phone] Allergies Active Allergy Reactions Criticality Noted Date [...] 02/09/2009 ZOSTER VACCINES (1 of 2) 09/28/2009 ABDOMINAL AORTIC ANEURYSM (AAA) SCREENING 09/28/2024 INFLUENZA VACCINE (#1) 2025 0, 04/30/2015 COVID-19 VACCINE (2 - 2024-2 6 season) 2025 10/21/2020 Adult Td,Tdap Booster 08/04/2029 08/04/2019 , 02/09/2009 [...] file Insurance MEDICARE PART A & B [facility] MEDICARE PART A & B HEALTH MEDICARE PART A & B HEALTH MEDICARE PART A & B [facility] MED[facility] PART A & B [place] MEDICARE PART A & B [facility] MED[facility] PART A & B [facility] MEDIC[facility] PART A & B [facility] MEDICARE PART A & B [facility] Care Teams Mmi Teacher Relationship Specialty Start Date End Date Lance Ramirez MD [address] [place] [address] [phone] PCP - General Internal Medicine 05/10/20 Additional Source Comments The information contained in this document represents components of the legal health record. It is not the complete legal health record.[facility]
--- OUTSIDE RECORDS SUMMARY | 2025-04-30 13:48 | XMS_ITS | Encounter Summary ---
Author Organization [facility] Address [id number] [place] [phone] Care Team Providers Care Aircraft Air Conditioning Mechanic Name Role Phone Kelly Luke MD Primary Care Provider [phone] Encounter Details Date Type Department Care Team (Late Contact Info) Description 05/28/2024 Lab Requisition [facility] - Main Lab 299 [facility] [place] [phone] Jorge Aparicio, DO [address] [employer] [address] Presence of right artificial knee joint Social History Tobacco Use Types Packs/Day Years Used Date Smoking Tobacco: Every Day Cigarettes Started: 07/02/1965 Smokeless Tobacco: Never Alcohol Use Standard Drinks/Week Comments No 0 (1 standard drink = 0.6 oz pur e alcohol) Sex and Gender Information Value Date Recorded Sex Assigned at Not on file Legal Sex Male 11:21 AM EST Gender Identity Not on file Sexual Orientation Not on file documented as of this encounter Plan of Treatment Upcoming Encounters Date Type Department Care Team (Late Contact Info) Description 05/05/2025 11:[address] [facility] Scan [address] [place] [phone] 06/09/2025 11:30 AM EST Office Visit Internal Medicine - [place] [address] [place] [address] Luis Fernando Martinez MD [address] [place] [address] 07/07/2025 11:00 AM EST Office Visit General Surgery - [place] 175 [facility] 110 [place] [address] Caio Phillips, 230 [place] [address] 08/12/2025 10:30 AM EST Office Visit Gastroenterology - 299 [facility] 299 [facility] 419 [place] [address] Jane Wesley PA 230 [place] [address] 09/01/2025 2:15 PM EST Office Visit Nephrology - [address] [phone] Kris Merida MD 100 [facility] 200 [place] [address] 2025 11:45 AM EDT Office Visit Pulmonology - [place] 175 [facility] 200 [place] [address] Edgardo Hoffmann MD 230 [place] [address] 10/26/2025 11:00 AM EDT Office Visit Internal Medicine - [address] [phone] Kelly Luke MD [address] [place] [address] documented as of this encounter Procedures Procedure Name Priority Date/Time Associated Diagnosis Comments CELL COUNT WITH REFLEX DIFFERENTIAL, BODY FLUID Routine 05/28/2024 12:15 PM EST Presence of right artificial knee joint CULTURE BODY FLUID WITH GRAM STAIN Routine 05/28/2024 12:15 PM EST Presence of right artificial knee joint DIFFERENTIAL BODY FLUID Routine 05/28/2024 12:15 PM EST Presence of right artificial knee joint URIC ACID, BODY FLUID Routine 05/28/2024 12:15 PM EST Presence of right artificial knee joint CRYSTAL IDENTIFICATION, BODY FLUID Routine 05/28/2024 12:15 PM EST Presence of right artificial knee joint GLUCOSE, BODY FLUID Routine 05/28/2024 1 2:15 PM EST Presence of right artificial knee joint documented in this encounter Results * Differential body fluid (05/28/2024 12:15 PM EST) Fluid Neutrophils % 80 % 05/28/2024 6:13 PM EST [facility] Fluid Lymphocytes % 19 % 05/28/2024 6:13 PM EST [facility] Fluid Monocytes/Macrop hages 1 % 05/28/2024 6:13 PM [facility] Fluid Eosinophils % 0 % 05/28/2024 6:13 PM [facility] Fluid Basophils % 0 % 05/28/2024 6:13 PM EST [facility] Fluid Other Cells % 0 % 05/28/2024 6:13 PM EST [facility] Synovial Fluid Structure of right knee region / Unknown Non-blood Collection / Unknown 05/28/2024 12:15 PM EST 05/28/2024 4:06 PM EST [facility] - 05/28/2024 6:13 PM EST No reference ranges have been established for body fluids. Clinical correlation recommended. Jorge Aparicio DO LAB BODY FLUIDS AND STOOLS [place] Final Result Performing Organization Address City/[facility]/ZIP Co de Phone Number [facility] [address] [place] [address], [place] [phone] * Cell count with reflex differential, body fluid (05/28/2024 12:15 PM EST) Body Fluid Total Nucleated Cells 1,915 /mm3 LAB HEMETOLOGY METHOD 05/28/2024 6:13 PM EST [facility] Body Fluid RBC 11,000 /mm3 LAB HEMETOLOGY METHOD 05/28/2024 6:13 PM EST [facility] Body Fluid Color Thornton 05/28/2024 6:13 PM EST [facility] Body Fluid Clarity Cloudy 05/28/2024 6:13 PM EST [facility] Body Fluid Source Knee, Right 05/28/2024 6:13 PM EST [facility] Synovial Fluid Structure of right knee region / Unknown Non-blood Collection / Unknown 05/28/2024 12:15 PM EST 05/28/2024 4:06 PM EST Narrative [facility] - 05/28/2024 6:13 PM EST No reference ranges have been established for body fluids. Clinical correlation recommended. Jorge Aparicio DO LAB BODY FLUIDS AND STOOLS [place] Final Result Performing Organization Address [facility]/ZIP Co de Phone Number [facility] [address] [place] [address], [place] [phone] * Culture body fluid with gram stain (05/28/2024 12:15 PM EST) Fluid Culture No growth at 3 days LAB MICROBIOLOGY METHOD 05/31/2024 12:36 PM EST [facility] Gram Stain Result Moderate Polymorphonuclear leukocytes 05/31/2024 12:36 PM EST [facility] Gram Stain Result No Epithelial cells 05/31/2024 12:36 PM EST [facility] Gram Stain Result No organisms seen 05/31/2024 12:36 PM EST [facility] Synovial Fluid Structure of right knee region / Unknown Non-blood Collection / Unknown 05/28/2024 12:15 PM EST 05/28/2024 4:06 PM EST Narrative [facility] - 05/31/2024 12:36 PM EST Testing performed on Unspun fluid, Quantity not sufficient to spin. us Jorge Aparicio DO LAB MICROBIOLOGY - GENERAL [place] Edited Result - Final [facility] [address] [place] [address], [place] [phone] * Crystal identification, body fluid (05/28/2024 12:15 PM EST) Crystals, Fluid No diagnostic crystals seen No diagnostic crystals seen 05/28/2024 6:21 PM EST [facility] Synovial Fluid Structure of right knee region / Unknown Non-blood Collection / Unknown 05/28/2024 12:15 PM EST 05/28/2024 4:06 PM EST us Jorge Aparicio DO LAB BODY FLUIDS AND STOOLS [place] Final Result [facility] [address] [place] [address], [place] [phone] * Uric acid, body fluid (05/28/2024 12:15 PM EST) Uric Acid, Fluid 7.5 See Comment mg/dL LAB CHEMISTRY METHOD 05/28/2024 4:41 PM EST [facility] Synovial Fluid Structure of right knee region / Unknown Non-blood Collection / Unknown 05/28/2024 12:15 PM EST 05/28/2024 4:06 PM EST Narrative [facility] - 05/28/2024 4:41 PM EST No reference ranges have been established for body fluids. Clinical correlation recommended. Jorge Aparicio DO LAB BODY FLUIDS AND STOOLS ORDJose D MYRNAWHITNEY Final Result Performing Organization Address [facility] Co de Phone Number [facility] [address] [place] [address], [place] [phone] * Glucose, body fluid (05/28/2024 12:15 PM EST) Glucose, Fluid 41 See Comment mg/dL LAB CHEMISTRY METHOD 05/28/2024 4:41 PM EST [facility] Synovial Fluid Structure of right knee region / Unknown Non-blood Collection / Unknown 05/28/2024 12:15 PM EST 05/28/2024 4:06 PM EST Narrative [facility] - 05/28/2024 4:41 PM EST No reference ranges have been established for body fluids. Clinical correlation recommended. Jorge Aparicio DO LAB BODY FLUIDS AND STOOLS [place] Final Result Performing Organization Address [facility] Co de Phone Number [facility] [address] [place] [address], [place] [phone] documented in this encounter Visit Diagnoses Diagnosis Presence of right artificial knee joint documented in this encounter Additional Health Concerns Infection Onset Date Last Indicated Resolved Time Respiratory Rule-Out 08/05/2024 08/05/2024 025 7:43 PM EST COVID-19 Rule-Out 08/05/2024 08/05/2024 08/05/2024 7:43 PM EST Influenza 08/05/2024 08/05/2024 08/29/2024 7:07 PM EST documented as of this encounter Care Teams Aircraft Air Conditioning Mechanic Relationship Specialty Start Date End Date Kelly Luke MD [address] [place], [place] PCP - General Internal Medicine 03/11/25 documented as of this encounter
--- OUTSIDE RECORDS SUMMARY | 2025-04-30 13:48 | XMS_ITS | Encounter Summary ---
Author Organization [facility] Address [address] [place] [address] Care Team Providers Care Buyer Name Role Phone Kelly Luke MD Primary Care Provider [phone] Encounter Details Date Type Department Care Team (Late st Contact Info) Description 11/19/2024 Lab Requisition [facility] - Main Lab 299 [facility] [place] [phone] Jorge Aparicio MD 300 [facility] [address] [place] [phone] Infection and inflammatory reaction due to internal right knee prosthesis, subsequent encounter Social History Tobacco Use Types Packs/Day Years [...] your living situation? Unrecognized valu e 06/12/2024 Sex and Gender Information Value Date Recorded Sex Assigned at Not on file Legal Sex Male 11:21 AM EST Gender Identity Not on file Sexual Orientation Not on file documented as of this encounter Plan of Treatment Upcoming Encounters Date Type Department Care Team (Late st Contact Info) Description 05/05/2025 11:45 AM EST Appointment [facility] CT Scan [address] [place] [phone] 06/09/2025 11:30 AM EST Office Visit Internal Medicine - [address] [address] Luis Fernando Martinez MD [address] [place] [address] 07/07/2025 11:00 AM EST Office Visit General Surgery - [place] 175 [facility] [address] [place] [phone] Caio Phillips DO [address] [place] [address] 08/12/2025 10:30 AM EST Office Visit Gastroenterology - [address] [place] 299 [facility] [address] [place] [address] Jane Wesley PA 230 [place] [address] 09/01/2025 2:15 PM EST Office Visit Nephrology - [address] [phone] Kris Merida MD [address] [facility] 200 [place] [address] 2025 11:45 AM EDT Office Visit Pulmonology - [place] 175 [facility] 200 [place] [address] Edgardo Hoffmann MD 230 [place] [address] 10/26/2025 11:00 AM EDT Office Visit Internal Medicine - [address] [phone] Kelly Luke MD [address] [place] [address] documented as of this encounter Procedures Procedure Name Priority Date/Time Associated Diagnosis Comments CELL COUNT WITH REFLEX DIFFERENTIAL, BODY FLUID STAT 11/19/2024 11:45 AM EDT Infection and inflammatory reaction due to internal right knee prosthesis, subsequent encounter CULTURE BODY FLUID WITH GRAM STAIN STAT 11/19/2024 11:45 AM EDT Infection and inflammatory reaction due to internal right knee prosthesis, subsequent encounter DIFFERENTIAL BODY FLUID STAT 11/19/2024 11:45 AM [...] to internal right knee prosthesis, subsequent encounter documented in this encounter Results * Differential body fluid (11/19/2024 11:45 AM EDT) Fluid Neutrophils % 43 % 11/19/2024 2:42 PM EDT [facility] Fluid Lymphocytes % 26 % 11/19/2024 2:42 PM EDT [facility] Fluid Monocytes/Macrop hages 28 % 11/19/2024 2:42 PM EDT [facility] Fluid Eosinophils % 3 % 11/19/2024 2:42 PM EDT [facility] Fluid Basophils % 0 % 11/19/2024 2:42 PM EDT [facility] Fluid Other Cells % 0 % 11/19/2024 2:42 PM EDT [facility] Synovial Fluid Structure of right knee region / Unknown 11/19/2024 11:45 AM EDT 11/19/2024 1:22 PM EDT [facility] - 11/19/2024 2:42 PM EDT No reference ranges have been established for body fluids. Clinical correlation recommended. us Jorge Aparicio MD LAB BODY FLUIDS AND STOOLS OR DERABLES Final Result Performing Organization Address [facility] Co de Phone Number [facility] [address] [place] [address], [place] [phone] * Cell count with reflex differential, body fluid (11/19/2024 11:45 AM EDT) Body Fluid Total Nucleated Cells 354 /mm3 LAB HEMETOLOGY METHOD 11/19/2024 2:42 PM EDT [facility] Body Fluid RBC 52,000 /mm3 LAB HEMETOLOGY METHOD 11/19/2024 2:42 PM EDT [facility] Body Fluid Color Red 11/19/2024 2:42 PM EDT [facility] Body Fluid Clarity Cloudy 11/19/2024 2:42 PM EDT [facility] Body Fluid Source Knee, Right 11/19/2024 2:42 PM EDT [facility] Synovial Fluid Structure of right knee region / Unknown 11/19/2024 11:45 AM EDT 11/19/2024 1:22 PM EDT Narrative [facility] - 11/19/2024 2:42 PM EDT No reference ranges have been established for body fluids. Clinical correlation recommended. Jorge Aparicio MD LAB BODY FLUIDS AND STOOLS OR DERABLES Final Result Performing Organization Address [facility]/ZIP Co de Phone Number [facility] [address] [place] [address], [place] [phone] * Culture body fluid with gram stain (11/19/2024 11:45 AM EDT) Fluid Culture No growth at 3 days LAB MICROBIOLOGY METHOD 11/22/2024 10:46 AM EDT [facility] Gram Stain Result No polymorphonuclear leukocytes, No epithelial cells, and No organisms noted 11/22/2024 10:46 AM EDT [facility] Synovial Fluid Structure of right knee region / Unknown 11/19/2024 11:45 AM EDT 11/19/2024 1:22 PM EDT Narrative [facility] - 11/22/2024 10:46 AM EDT Testing performed on unspun fluid, quantity not sifficient to spin. us Jorge Aparicio MD LAB MICROBIOLOGY - GENERAL OR DERABLES Final Result Performing Organization Address City/[facility]/ZIP Co de Phone Number [facility] [address] [place] [address], [place] [phone] * Crystal identification, body fluid (11/19/2024 11:45 AM EDT) Crystals, Fluid No diagnostic crystals seen No diagnostic crystals seen 11/19/2024 2:46 PM EDT [facility] Synovial Fluid Structure of right knee region / Unknown 11/19/2024 11:45 AM EDT 11/19/2024 1:22 PM EDT us Jorge Aparicio MD LAB BODY FLUIDS AND STOOLS OR DERABLES Final Result Performing Organization Address [facility] Co de Phone Number [facility] [address] [place] [address], [place] [phone] * Uric acid, body fluid (11/19/2024 11:45 AM EDT) Uric Acid, Fluid 6.2 See Comment mg/dL LAB CHEMISTRY METHOD 11/19/2024 2:16 PM EDT [facility] Synovial Fluid Structure of right knee region / Unknown 11/19/2024 11:45 AM EDT 11/19/2024 1:22 PM EDT Narrative [facility] - 11/19/2024 2:16 PM EDT No reference ranges have been established for body fluids. Clinical correlation recommended. us Jorge Aparicio MD LAB BODY FLUIDS AND STOOLS OR DERABLES Final Result Performing Organization Address [facility]/ZIP Co de Phone Number [facility] [address] [place] [address], [place] [phone] * Glucose, body fluid (11/19/2024 11:45 AM EDT) Glucose, Fluid 33 See Comment mg/dL LAB CHEMISTRY METHOD 11/19/2024 2:16 PM EDT [facility] Synovial Fluid Structure of right knee region / Unknown 11/19/2024 11:45 AM EDT 11/19/2024 1:22 PM EDT Narrative [facility] - 11/19/2024 2:16 PM EDT No reference ranges have been established for body fluids. Clinical correlation recommended. us Jorge Aparicio MD LAB BODY FLUIDS AND STOOLS OR DERABLES Final Result Performing Organization Address [facility] de Phone Number [facility] [address] [place] [address], [place] [phone] documented in this encounter Visit Diagnoses Diagnosis Infection and inflammatory reaction due to internal right knee prosthesis, subsequent encounter documented in this encounter Care Teams Buyer Relationship Specialty Start Date End Date Kelly Luke MD [address] [place], [place] PCP - General Internal Medicine 03/11/25 documented as of this encounter
--- OUTSIDE RECORDS SUMMARY | 2025-04-30 13:48 | XMS_ITS | Encounter Summary ---
Author Organization [facility] Address [address] [place] [address] Care Team Providers Care Auto Parts Delivery Driver Name Role Phone Kelly Luke MD Primary Care Provider [phone] Encounter Details Date Type Department Care Team ([facility] st Contact Info) Description 03/29/2025 Results Follow-Up Gastroenterology - [place] [address] [place] [address] [facility] [address] [place] [address] Jane Wesley PA [address] [place] [address] Social History Tobacco Use Types Packs/Day Years [...] ed Within the last 3 months, paulette marrero many times did you visit the emergency [...] on file documented as of this encounter Progress Notes * GABBY Mooer - 03/29/2025 5:40 PM EDT Please call patient and let him know that his tumor marker are negative/normal. TY documented in this encounter Plan of Treatment Upcoming Encounters Date Type Department Care Team (Late st Contact Info) Description 05/05/2025 11:45 AM EST Appointment [facility] CT Scan [address] [place] [address] 06/09/2025 11:30 AM EST Office Visit Internal Medicine - [place] [address] [place], [place] [phone] Luis Fernando Martinez MD [address] [place] [address] 07/07/2025 11:00 AM EST Office Visit General Surgery - [place] 175 [facility] 110 [place] [phone] Caio Phillips, [address] [place] [address] 08/12/2025 10:30 AM EST Office Visit Gastroenterology - 299 [facility] 299 [facility] [address] [place] [address] Jane Wesley PA [address] [place] [address] 09/01/2025 2:15 PM EST Office Visit Nephrology - [address] [phone] Kris Merida MD [address] [phone] 2025 11:45 AM EDT Office Visit Pulmonology - [place] 175 [facility] 200 [place] [address] Edgardo Hoffmann MD [address] [place] [address] 10/26/2025 11:00 AM EDT Office Visit Internal Medicine - [address] [phone] Kelly Luke MD [address] [place] [address] documented as of this encounter Goals Goal Patient Goal Type Associated Problems Recent Progress Patient-Stated? Author Autogenerat ed Goal Care Plan Autogenerated Problem No Caio Phillips DO documented as of this encounter Visit Diagnoses Not on filedocumented in this encounter Additional Health Concerns Active Problems Noted Date Diagnosed Date Autogenerated Problem 04/04/2025 documented as of this encounter Care Teams Auto [employer] Delivery Driver Relationship Specialty Start Date End Date Kelly Luke MD 305 [facility] [place] [address] PCP - General Internal Medicine 03/11/25 documented as of this encounter
--- OUTSIDE RECORDS SUMMARY | 2025-04-30 13:48 | XMS_ITS | Clinical Summary ---
Author Organization [facility] Address [address] [place] [address] Phone Care Team Providers Care Buoy Tender Name Role Phone Kelly Luke MD Primary Care Provider [phone] Allergies Active Allergy Reactions Criticality Noted Date Comments Amlodipine 08/15/2017 Escitalopram Dizziness 02/10/2009 Escitalopram Oxalate 08/15/2017 Hydrochlorothiazide 02/10/2009 Other reaction(s): Tremor Trazodone 08/15/2017 Medications albuterol HFA (PROAIR HFA ; PROVENTIL HFA ; VENTOLIN HFA) 90 mcg/actuation inhaler 2 puffs every 6 (six) hours if needed. 4 Active aspirin 81 mg EC tablet Take 1 tablet (81 mg total) by mouth 1 (one) time each day. 3 Active ascorbic acid (VITAMIN C) 500 mg chewable tablet Chew 1 tablet (500 mg total) 1 (one) time each day. 3 Active senna (SENOKOT) 8.6 mg tablet Take 1 Tablet by mouth at bedtime as needed (Constipation) . 3 Active furosemide (LASIX) 20 mg tablet Take 1 Tablet by mouth daily as needed (edema). 3 Active terazosin (HYTRIN) 5 mg capsule Take 1 capsule (5 mg total) by mouth at bedtime. 1 Active blood-glucose meter kit Use once daily to check a fasting sugar 0 Active FREESTYLE LANCETS MISC Use once daily to check a fasting sugar 0 Active blood sugar diagnostic (FreeStyle Lite Strips) test strip Use once daily to check a fasting sugar 0 Active sildenafiL (VIAGRA) 50 mg tablet 1 tablet (50 mg total) if needed. Active mv-min/folic/K1/ lycopen/lutein (MEN 50 PLUS MULTIVITAMIN ORAL) Take 1 Tab by mouth. Active finasteride (PROSCAR) 5 mg tablet Take 1 tablet (5 mg total) by mouth 1 (one) time each day. Active pyridoxine (B-6) 100 mg tablet Take 1 tablet (100 mg total) by mouth 1 (one) time each day. Active fluticasone propionate (FLONASE) 50 mcg/actuation nasal spray Administer 1 spray into each nostril 2 (two) times a day. Shake gently. Before first use, prime pump. After use, clean tip and replace cap. 16 g 5 Active metoprolol tartrate (LOPRESSOR) 25 mg tablet TAKE 1 TABLET(25 MG) BY MOUTH TWICE DAILY 180 tablet 1 5 Active ferrous sulfate 325 mg (65 mg elemental iron) tablet Take 1 tablet (325 mg total) by mouth 1 (one) time each day. 90 tablet 5 Active cyclobenzaprine (FLEXERIL) 5 mg tabletIndication s:S/P total knee arthroplasty, right Take 1 tablet (5 mg total) by mouth at bedtime as needed for muscle spasms. 14 tablet 5 Active Eliquis 5 mg tablet TAKE 1 TABLET BY MOUTH TWICE DAILY 180 tablet 1 5 Active gabapentin (NEURONTIN) 600 mg tablet TAKE 1 TABLET(600 MG) BY MOUTH THREE TIMES DAILY 270 tablet 1 5 Active dilTIAZem CD (CARDIZEM CD) 120 mg 24 hr capsule TAKE 1 CAPSULE BY MOUTH DAILY 90 capsule 1 5 Active umeclidinium (INCRUSE ELLIPTA) 62.5 mcg/actuation inhalation Inhale 1 puff by mouth 1 (one) time each day. 1 each 12 5 026 Active acetaminophen (TYLENOL) 500 mg tablet Take 1.5 tablets (750 mg total) by mouth every 6 (six) hours if needed for mild pain. 60 tablet 5 Active oxyCODONE (ROXICODONE) 5 mg immediate release tabletIndication s:Ventral hernia without obstruction or gangrene Take 1 tablet (5 mg total) by mouth every 6 (six) hours if needed for severe pain. Max Daily Amount: 20 mg 12 tablet 5 Active acetaminophen (TylenoL) 325 mg tablet Take 2 tablets (650 mg total) by mouth every 6 (six) hours if needed for mild pain. 60 tablet 5 Active oxyCODONE (ROXICODONE) 5 mg immediate release tablet Take 1 tablet (5 mg total) by mouth every 4 (four) hours if needed. for severe pain 5 025 Discontin ued(Stop Taking at Discharge ) tiotropium (SPIRIVA) 18 mcg per inhalation capsule Place 1 capsule (18 mcg total) into inhaler and inhale 1 (one) time each day. 30 each 5 5 025 Discontin ued(Alter chinyere therapy) oxyCODONE (ROXICODONE) 5 mg immediate release tabletIndication s:Ventral hernia without obstruction or gangrene Take 1 tablet (5 mg total) by mouth every 6 (six) hours if needed for severe pain. Max Daily Amount: 20 mg 20 tablet 5 025 Discontin ued(Reord er) oxyCODONE (ROXICODONE) 5 mg immediate release tabletIndication s:Ventral hernia without obstruction or gangrene Take 1 tablet (5 mg total) by mouth every 6 (six) hours if needed for severe pain. Max Daily Amount: 20 mg 12 tablet 5 025 Discontin ued(Reord er) Active Problems Problem Noted Date Diagnosed Date Pure hypercholesterolemia 03/30/2025 Assessment & Plan (03/30/2025 1:11 PM EDT): Well-controlled lipid profile not on any antihyperlipidemic agents. Given his diabetes, ideally LDL less than 100, closer to 70 if possible. Continue dietary modification and management of his diabetes. Ventral hernia without obstruction or gangrene 0 02/23/2025 CKD stage 3a, GFR 45-59 ml/min ([facility] V24, [facility] V28) 08/26/2024 Benign prostatic hyperplasia without lower urinary tract symptoms 08/10/2023 PAD (peripheral artery disease) ([facility] V24) Overview (04/14/2024): Last Assessment & Plan: Followed by vascular. Cholelithiasis 05/09/2023 Overview (04/14/2024): Incidental on imaging 05/2023, no symptoms Chronic kidney disease 03/27/2023 History of arthroplasty of left knee 01/19/2023 Aortic aneurysm ([facility] V24) 10/18/2021 Overview (04/14/2024): Last Assessment & Plan: Dilated sinus of Valsalva 4.3 cm. Will check yearly. Blood pressure stable today. Continue metoprolol. S/P amputation of lesser toe, left ([facility] V24) 08/18/2020 Splenomegaly 01/19/2020 Kidney cyst, [...] (diabetes mellitus), type 2 with renal complications ([facility] V24, [facility] V28) 04/27/2018 Assessment & Plan (03/11/2025 2:59 PM EDT): Under control. Follow diabetic diet. Assessment & Plan (02/03/2025 11:12 AM EDT): We will monitor his A1c levels. Follow diabetic diet. Orders: Hemoglobin A1c; Future Lipid panel with reflex to direct LDL; Future Basic metabolic panel; Future Aspartate aminotransferase; Future Alanine aminotransferase; Future Microalbumin creatinine urine ratio; Future Assessment & Plan (08/05/2024 2:18 PM EST): Diabetic diet discussed. Check A1c. Orders: Hemoglobin A1c; Future History of amputation of rig ht foot ([facility] V24, [facility] V28) 04/27/2018 Overview (04/14/2024): R partial Alcoholic cirrhosis ([facility] V24, [facility] V28) 1 Chronic atrial fibrillation ([facility] V24, [facility] V28) 04/16/2018 Overview (03/30/2025): - Rate control with diltiazem and metoprolol - Anticoagulated with apixaban - Last EKG in R 09/2021 Assessment & Plan (03/30/2025 1:10 PM EDT): The patient does not have any symptoms referable to atrial fibrillation. His heart rate is well-controlled on his current calcium channel giselle and beta-giselle combination. He remains anticoagulated with apixaban. He has not had any falls or bleeding issues. Continue current treatment plan Assessment & Plan (03/11/2025 2:59 PM EDT): Rate controlled with metoprolol. Continue Eliquis. DM (diabetes mellitus), type 2 with peripheral vascular complications ([facility] V24, [facility] V28) 04/16/2018 Microalbuminuria 04/16/2018 Nephrolithiasis 04/16/2018 Hypertension 01/16/2018 Assessment & Plan (03/30/2025 1:11 PM EDT): Blood pressure well-controlled in office today. Continue diltiazem, metoprolol, and as needed furosemide. Pulmonary emphysema ([facility] V24, [facility] V28) 0 09/19/2017 Assessment & Plan (03/11/2025 2:59 PM EDT): He is currently on Spiriva, albuterol. I have referred to pulmonology to monitor his emphysema. Orders: Ambulatory referral to Pulmonology; Future Pulmonary nodules 12/07/2016 Thrombocytopenia ([facility] V24) 12/26/2015 Diverticulosis 11/24/2015 Adenomatous colon polyp 10/29/2015 Overview (04/14/2024): 2020: tubular adenoma (again). Repeat 3 years Allergic rhinitis 08/10/2015 Alcoholic polyneuropathy ([facility] V24) 4 Erectile dysfunction 03/25/2013 Resolved Problems Problem Noted Date Diagnosed Date Resolved Date CKD (chronic kidney disease) stage 2, GFR 60-89 ml/min 08/26/2024 08/26/2024 Encounters Date Type Department Care Team Description 04/27/2025 1:00 PM EDT Office Visit General Surgery [facility] [address] [facility] [address] [place] [phone] Caio Phillips, Ventral hernia without obstruction or gangrene (Primary Dx); S/P repair of ventral hernia 04/15/2025 Telephone Lung Screening Program [facility] [address] [facility] [address] [place] [address] Christiana Mccarty AR 04/15/2025 Telephone General Surgery [facility] [address] [facility] [address] [place] [address] Caio Phillips DO 04/13/2025 2:15 PM EDT Office Visit [facility] [address] [facility] [address] [place] [phone] Caio Phillips, Ventral hernia without obstruction or gangrene (Primary Dx) 04/13/2025 Telephone Internal Medicine - [facility] [address] [place] [address] Kelly Luke MD 04/09/2025 1:00 PM EDT Office Visit Internal Medicine - [facility] [address] [place] [address] Emma Barajas, DUSTY Primary hypertension (Primary Dx); Chronic atrial fibrillation ([facility] V24, [facility] V28); Chronic kidney disease, unspecified CKD stage; PAD (peripheral artery disease) ([facility]/HCC V24); Alcoholic cirrhosis of liver without ascites (CMS/HCC V24, CMS/HCC V28); DM (diabetes mellitus), type 2 with peripheral vascular complications (CMS/HCC V24, CMS/HCC V28); Microalbuminuria; Ventral hernia without obstruction or gangrene; Pure hypercholesterolemia; Iron deficiency anemia, unspecified iron deficiency anemia type 04/09/2025 Telephone General Surgery [facility] [address] [facility] [address] [place] [phone] Purvi Mojica AR 04/03/2025 7:30 AM EDT - 04/03/2025 9:30 AM EDT Surgery [facility] [place] [address] [place] [phone] Caio Phillips DO DAVINCI REPAIR HERNIA VENTRAL WITH MESH [[id number] (CPT )] 04/03/2025 7:20 AM EDT Anesthesia Event [facility] [place] [address] [place] [phone] Dao Wong MD Lema Alava, Steven, SRNA 04/03/2025 5:56 AM EDT - 04/03/2025 11:21 AM EDT Hospital Encounter [facility] [place] [address] [place] [phone] Caio Phillips DO Ventral hernia without obstruction or gangrene Discharge Disposition: Home or Self Care 03/31/2025 11:00 AM EDT Consult Pulmonology - [address] [place] [phone] Edgardo Hoffmann MD Chronic obstructive pulmonary disease, unspecified COPD type ([facility]/HCC V24, CMS/HCC V28) (Primary Dx) 03/30/2025 12:40 PM EDT Consult [facility] [address] [facility] [address] [place] [phone] Jaylene Tinajero NP Chronic atrial fibrillation ([facility]/HCC V24, CMS/HCC V28) (Primary Dx); Primary hypertension; Pure hypercholesterolemia; Preop cardiovascular exam 03/29/2025 Results Follow-Up Gastroenterology - [address] [place] [phone] Jane Wesley PA 03/23/2025 [facility] [address] [place] [address] Kelly Luke MD 03/19/2025 Telephone General Surgery - [place] [address] [facility] [address] [place] [phone] Caio Phillips DO 03/16/2025 1:00 PM EDT Office Visit Gastroenterology - [place] [address] [facility] [address] [facility] [address] [place] [phone] Jane Wesley PA Alcoholic cirrhosis of liver without ascites ([facility]/HCC V24, [facility] V28) (Primary Dx); Splenomegaly; Thrombocytopenia ([facility] V24); Iron deficiency anemia, unspecified iron deficiency anemia type 03/13/2025 8:36 AM EDT - 03/13/2025 11:59 PM EDT Hospital Encounter Ultrasound - [facility] [address] [place] [address] Screening for AAA (abdominal aortic aneurysm) Discharge Disposition: Home or Self Care 03/11/2025 2:15 PM EDT [facility] [address] [place] [address] Lance Ramirez MD Iron deficiency anemia, unspecified iron deficiency anemia type (Primary Dx); Umbilical hernia without obstruction and without gangrene; Type 2 diabetes mellitus with stage 3a chronic kidney disease, without long-term current use of insulin (CMS/HCC V24, CMS/HCC V28); Chronic atrial fibrillation (CMS/HCC V24, CMS/HCC V28); Pulmonary emphysema, unspecified emphysema type (CMS/HCC V24, CMS/HCC V28); Hard of hearing; S/P total knee arthroplasty, right 03/09/2025 12:36 PM EDT - 03/09/2025 11:59 PM EDT Hospital Encounter [facility] Ultrasound [address] [place] [phone] PAD (peripheral artery disease) ([facility] V24) Discharge Disposition: Home or Self Care 02/23/2025 11:00 AM EDT Office Visit General Surgery - [place] [address] [facility] [address] [place] [phone] Caio Phillips, Ventral hernia without obstruction or gangrene (Primary Dx) 02/15/2025 1:34 PM EDT - 02/15/2025 5:17 PM EDT Emergency [facility] Emergency [address] [place] [phone] Cleveland Judge MD Umbilical hernia without obstruction and without gangrene (Primary Dx); Kidney stone Discharge Disposition: Home or Self Care 02/09/2025 [facility] [phone] Alisha Celis [place] 02/03/2025 10:30 AM EDT [facility] [address] [place] [phone] Lance Ramirez MD S/P total knee arthroplasty, right (Primary Dx); Anemia, unspecified type; Type 2 diabetes mellitus with diabetic microalbuminuria, without long-term current use of insulin ([facility] V24, [facility] V28); Screening for prostate cancer; Screening for AAA (abdominal aortic aneurysm) from Last 3 Months Immunizations Immunization Administration Dates Next Due Hepatitis B Pediatric [...] amputation OTHER SURGICAL HISTORY 2021 Bilateral PROCEDURE: MI AMPUTATION FOOT TRANSMETARSAL COLONOSCOPY PROCEDURE: HISTORICAL COLONOSCOPY ADENOIDECTOMY KNEE ARTHROPLASTY Right X3 AND 1X L TOTAL SHOULDER ARTHROPLASTY HERNIA REPAIR Medical History Medical History Date Comments Atrial fibrillation ([facility] V24, [facility] V28) DX:Atrial fibrillation (HCC) History of back pain DX:History of back pain Abdominal pain DX:Abdominal doug n Esophageal reflux DX:Esophageal reflux Insomnia DX:Insomnia Laennec's cirrhosis (alcohol ic) (CMS/HCC V24, [facility] V28) DX:Laennec's cirrhosis (alc oholic) (HCC) Nephrolithiasis DX:Nephrolithias is Pain syndrome, chronic DX:Pain s yndrome, chronic Pulmonary emphysema ([facility]/HCC V24, [facility] V28) DX:Pulmonary emphysema (HCC) Pulmonary nodules DX:Pulmonary n odules DM (diabetes mellitus), type 2 with renal complications (CMS/HCC V24, [facility]/HCC V28) 04/27/2018 DX:DM (diabetes mellitus), t ype 2 with renal complications (HCC) Foot amputation status 04/27/2018 DX:Foot a mputation status Kidney cyst, acquired 01/09/2020 DX:Kidney cyst, acquired History of arthroplasty of left knee 01/19/2023 DX:History of arthroplasty of left knee Cirrhosis of liver ([facility]/HCC V24, [facility] V28) DX:Cirrhosis of liver (HCC) Iron deficiency anemia DX:Iron d eficiency anemia Tubular adenoma of colon DX:Tubu lar adenoma of colon A-fib ([facility] V24, [facility] V28) DX:A-fib ([facility]) H/O foot surgery DX:H/O foot kay martha Cholelithiasis 05/09/2023 DX:Cholelithiasi s; COMMENT: Incidental on imaging 05/2023, no symptoms Irregular heart beat Arthritis Joint pain Hypertension Ascites CHF (congestive heart failur e) ([facility] V24, [facility] V28) Family History Medical History Relation Name Comments [...] 0.3 59.8 Started: 07/02/1965 Smokeless Tobacco: Never Tobacco Cessation:Ready to Q uit: Not Asked; Counseling Given: Not Answered Comments:Smoking 5 cigs daily Alcohol Use Standard Drinks/Week Comments No 0 [...] F) 04/27/2025 12:56 PM EDT Respiratory Rate 16 04/03/2025 10:38 AM EDT Oxygen Saturation 94% 04/03/2025 10:38 AM EDT Inhaled Oxygen Concentration - - Weight 104 kg (230 lb) 04/27/2025 12:56 PM EDT Height 177.8 cm (5' 10 ) 04/27/2025 12:56 PM EDT Body Mass Index 33 04/27/2025 12:56 PM EDT Plan of Treatment Upcoming Encounters Date Type Department Care Team (Late st Contact Info) Description 05/05/2025 11:45 AM EST Appointment [facility] CT Scan [address] [place] [phone] 06/09/2025 11:30 AM EST Office Visit Internal Medicine - [address] [phone] Luis Fernando Martinez MD [address] [place] [phone] 07/07/2025 11:00 AM EST Office Visit General Surgery - [place] [address] [facility] [address] [place] [phone] Caio Phillips, [address] [place] [address] 08/12/2025 10:30 AM EST Office Visit Gastroenterology - [address] [facility] [address] [facility] [address] [place] [address] Jane Wesley PA [address] [place] [phone] 09/01/2025 2:15 PM EST Office Visit Nephrology - [address] [phone] Kris Merida MD [address] [facility] [address] [place] [address] 2025 11:45 AM EDT Office Visit Pulmonology - [place] [address] [facility] [address] [place] [address] Edgardo Hoffmann MD [address] [place] [address] 10/26/2025 11:00 AM EDT Office Visit Internal Medicine - [address] [phone] Kelly Luke MD [address] [place] [address] [place] [phone] Health Maintenance Due Date Last Done Comments Hepatitis A Vaccines (1 of 2 - Risk 2-dose series) 09/28/1978 Hepatitis B Vaccines (1 of 3 - Risk 3-dose series) 2019 11/04/2008 COVID-19 Vaccine (3 - Pfizer risk series) 12/09/2020 11/11/2020, 10/21/2020 Zoster Vaccines (2 of 2) 05/15/2021 03/20/2021, 06/01 Medicare Annual Wellness Visit 06/09/2022 Depression Screening 07/02/2024 Diabetes: Annual Foot Exam 11/04/2024 11/05/2023 Diabetes: Annual Retina Eye Exam 11/04/2024 11/05/2023 Influenza Vaccine (#1) 2025 , 05/22/2022, 04/19/2022, Additional history exists Social Influencers of Health Screening 06/12/2025 06/12/2024 Diabetes: Blood Sugar Control Test (HGBA1C) 09/07/2025 03/10/2025, 12/10/2023, 12/10/2023 Falls Risk Assessment 09/26/2025 09/26/2024 Diabetes: Annual GFR (Glomerular Filtration Rate) 02/15/2026 02/15/2025, 04/04/2024, 04/04/2024, Additional history exists Hypertension/CHF/CAD Annual BMP Blood Test 02/15/2026 02/15/2025, 04/04/2024, 04/04/2024, Additional history exists Diabetes: Annual Urine Albumin-Creatinine Ratio (uACR) 03/11/2026 03/11/2025, 12/12/2023 Colorectal Cancer Screening: Colonoscopy 04/18/2028 04/18/2023 DTaP,Tdap,and Td Vaccines (3 - Td or Tdap) 08/04/2029 08/04/2019, 02/09/2009 Cholesterol Screening (Lipid Panel) 03/10/2030 03/10/2025, 04/18/2023 Hepatitis C Screening Completed 06/23/2019 Pneumococcal Vaccine: 50+ Years Completed 06/10/2022, 07/29/2015, 02/09/2009, Additional history exists RSV Immunization Adult Patients Completed 07/07/2023 Abdominal Aortic Aneurysm (AAA) Screen Completed 03/13/2025 HIB Vaccines Aged Out No longer eligi [...] on patient's age to complete this topic Goals Goal Patient Goal Type Associated Problems Recent Progress Patient-Stated? Author Autogenerat ed Goal Care Plan Autogenerated Problem No Caio Phillips DO Medical Devices Implanted Type Area Maintenance And Engineering Manager Device Identifier Shelf Expiration Date Model / Serial / Lot Mesh Ventralight St 4.[address]in Cir W/Echo Ps Posi Syst - Sn/A - [id number] Implanted:Qty: 1 on 04/03/2025 by Caio Phillips DO at [facility] Surgical Mesh Sling Implants N/A: Abdomen CR BARD - DAVOL DIV [id number] 10/27/2026 [id number] / N/A / [id number] Procedures Procedure Name Priority Date/Time Associated Diagnosis Comments POCT GLUCOSE BLOOD Routine 04/03/2025 9: 29 AM EDT TISSUE EXAM Routine 04/03/2025 8:14 AM EDT Ventral hernia without obstruction or gangrene TH AN ENDOTRACHEAL(NO CHARGE) Routine 04/03/2025 7:55 AM EDT MI REPR ANT ABD HERNIA(S) ANY APPR INIT INCL IMPL < 3 CM REDUCIBLE 04/03/2025 7:27 AM EDT Ventral hernia without obstruction or gangrene Special Needs Robotic repair ventral hernia with mesh - asking 90 minutes for this case POCT GLUCOSE BLOOD Routine 04/03/2025 6: 40 AM EDT ECG 12-LEAD Routine 03/30/2025 1:14 PM EDT Chronic atrial fibrillation (CMS/HCC V24, CMS/HCC V28) CBC WITH AUTO DIFFERENTIAL Routine 03/25/2025 2:15 PM EDT Iron deficiency anemia, unspecified iron deficiency anemia type CBC AND DIFFERENTIAL Routine 03/25/2025 2:15 PM EDT Iron deficiency anemia, unspecified iron deficiency anemia type IRON AND TIBC Routine 03/25/2025 2:15 PM EDT Iron deficiency anemia, unspecified iron deficiency anemia type FERRITIN Routine 03/25/2025 2:15 PM EDT Iron deficiency anemia, unspecified iron deficiency anemia type ALPHA FETOPROTEIN TUMOR MARKER Routine 03/25/2025 2:15 PM EDT Alcoholic cirrhosis of liver without ascites (CMS/HCC V24, CMS/HCC V28) Splenomegaly Thrombocytopenia (CMS/HCC V24) Iron deficiency anemia, unspecified iron deficiency anemia type US ABDOMEN AORTIC ANEURYSM SCREENING Routine 03/13/2025 8:52 AM EDT Screening for AAA (abdominal aortic aneurysm) MICROALBUMIN CREATININE URINE RATIO Routine 03/11/2025 1:56 PM EDT Type 2 diabetes mellitus with diabetic microalbuminuria, without long-term current use of insulin (CMS/HCC V24, CMS/HCC V28) CBC WITH AUTO DIFFERENTIAL Routine 03/10/2025 11:13 AM EDT History of arthroplasty of right knee CBC AND DIFFERENTIAL Routine 03/10/2025 11:13 AM EDT History of arthroplasty of right knee VITAMIN B12 AND FOLATE Routine 11:13 AM EDT Anemia, unspecified type IRON AND TIBC Routine 03/10/2025 11:13 AM EDT Anemia, unspecified type FERRITIN Routine 03/10/2025 11:13 AM EDT Anemia, unspecified type HEMOGLOBIN A1C Routine 03/10/2025 11:13 AM EDT Type 2 diabetes mellitus with diabetic microalbuminuria, without long-term current use of insulin ([facility] V24, [facility] V28) LIPID PANEL WITH REFLEX TO DIRECT LDL Routine 03/10/2025 11:13 AM EDT Type 2 diabetes mellitus with diabetic microalbuminuria, without long-term current use of insulin ([facility] V24, [facility] V28) ASPARTATE AMINOTRANSFERASE Routine 03/10/2025 11:13 AM EDT Type 2 diabetes mellitus with diabetic microalbuminuria, without long-term current use of insulin ([facility] V24, [facility] V28) ALANINE AMINOTRANSFERASE Routine 03/10/2025 11:13 AM EDT Type 2 diabetes mellitus with diabetic microalbuminuria, without long-term current use of insulin ([facility] V24, [facility] V28) PROSTATE SPECIFIC ANTIGEN SCREEN Routine 03/10/2025 11:13 AM EDT Screening for prostate cancer VAS US DUPLEX LOWER EXT ARTERIES BILAT WITH KRUPA Routine 03/09/2025 1:33 PM EDT PAD (peripheral artery disease) ([facility] V24) CT ABDOMEN PELVIS W CONTRAST STAT 02/15/2025 3:36 PM EDT LACTATE, WITH REFLEX STAT 02/15/2025 1:51 PM EDT CBC WITH AUTO DIFFERENTIAL STAT 02/15/2025 1:51 PM EDT LIPASE STAT 02/15/2025 1:51 PM EDT COMPREHENSIVE METABOLIC PANEL STAT 02/15/2025 1:51 PM EDT CBC AND DIFFERENTIAL STAT 02/15/2025 1:51 PM EDT DIABETES EYE EXAM Routine 11/05/2023 DIABETES FOOT EXAM Routine 11/05/2023 COLONOSCOPY Routine 04/18/2023 HEPATITIS C SCREENING Routine 06/23/2019 from Last 3 Months or Most Recently Relevant to Health Maintenance Results * (ABNORMAL) POCT Glucose, blood (04/03/2025 9:29 AM EDT) Only the most recent of2 resultswithin the time period is included. Glucose POCT 154(H) 70 - 100 mg/dL 04/03/2025 9:29 AM EDT [facility] Blood Capillary blood specimen / Unknown 04/03/2025 9:29 AM EDT 04/03/2025 9:31 AM EDT us Caio Phillips DO LAB POINT OF CARE TE ST DOCKED DEVICE UNSOLICITED RESULTS Final Result [facility] [address] [place] [address], [place] [phone] * Tissue exam (04/03/2025 8:14 AM EDT) Final Diagnosis A. Abdominal Wall, Hernia Sac and Preperitoneal Fat: - Benign mesothelial-lined fibroadipose tissue, compatible with hernia sac. 04/06/2025 2:24 PM EDT [facility] at 1424 EDT Gross Description A. Abdominal Wall, Hernia Sac and Preperitoneal Fat: Labeled hernia sa ABD wall . Received in formalin is a 6.5 x 6.9 x 3.0 cm portion of soft, yellow lobular adipose tissue with attached leroy-pink saccular, fibromembranous tissue. The specimen is sectioned and business development representative sections are submitted in one cassette, multiple pieces. TS 04/06/2025 2:24 PM EDT [facility] Disclaimer Unless otherwise specified, all tissue is 10% NB formalin fixed and paraffin embedded. 04/06/2025 2:24 PM EDT [facility] Tissue Structure of abdominopelvic wall / Unknown 04/03/2025 8:14 AM EDT 04/03/2025 10:32 AM EDT us Caio Phillips DO LAB PATHOLOGY ORDERABLES Final Result [facility] [address] [place] [address], [place] [phone] * TH AN ENDOTRACHEAL(NO CHARGE) (04/03/2025 7:55 AM EDT) Narrative Teddy Weiss SRNA - 04/03/2025 7:55 AM EDT ISREAL Resendiz 04/03/2025 7:55 AM General Information and Staff Patient location during procedure: OR Other anesthesia staff: ISREAL Resendiz Performed: resident/GANG VIBRATOR OPERATOR/CAA Performed by: ISREAL Resendiz Authorized by: Dao Wong MD Intubation Airway not difficult Reason: elective Final Airway Details Successful airway: ETT Cuffed: yes Successful intubation technique: direct laryngoscopy Blade: Mendy Blade size: #3 ETT size (mm): 7.5 Cormack-Lehane Classification: grade I - full view of glottis Placement verified by: chest auscultation and capnometry Cuff volume (mL): 8 Measured from: lips ETT to lips (cm): 23 Final airway type: endotracheal airway Indications and Patient Condition Indications for airway management: anesthesia Sedation level: Yes Preoxygenated: yesSoft Tissue Damage: No Dentition Unchanged: No Patient position: neutral Mask difficulty assessment: 2 - vent by mask + OA or adjuvant +/- NMBA us Dao Wong MD ANESTHESIA ORDERABLES Final Re sult * ECG 12 lead (03/30/2025 1:14 PM EDT) Pathologist [facility] Ventricular Rate ECG 78 BPM GEMUSE Atrial Rate 326 BPM GEMUSE QRS Duration 78 ms GEMUSE Q-T Interval 384 ms GEMUSE QTc 437 ms GEMUSE R Hurst 88 degrees GEMUSE T Hurst 67 degrees GEMUSE ECG Interpretation Atrial fibrillation , known anticoagulated Abnormal ECG Confirmed by Jovanna MONTEJO JAY ([id number]) on 03/31/2025 9:09:40 AM GEMUSE 03/30/2025 12:4 7 PM EDT 03/31/2025 9:09 AM EDT Jaylene Tinajero NP ECG ORDERABLES Edited Result - Final GEMUSE * (ABNORMAL) CBC auto differential (03/25/2025 2:15 PM EDT) Only the most recent of3 resultswithin the time period is included. [facility] WBC 5.0 4.8 - 10.8 K/mcL LAB HEMETOLOGY METHOD 03/25/2025 6:39 PM EDT [facility] RBC 3.90(L) 4.50 - 5.50 M/mcL LAB HEMETOLOGY METHOD 03/25/2025 6:39 PM EDT [facility] Hemoglobin 11.5(L) 13.5 - 17.5 g/dL LAB HEMETOLOGY METHOD 03/25/2025 6:39 PM EDT [facility] Hematocrit 38.5(L) 42.0 - 54.0 % LAB HEMETOLOGY METHOD 03/25/2025 6:39 PM EDT [facility] MCV 99.0(H) 79.0 - 98.0 FL LAB HEMETOLOGY METHOD 03/25/2025 6:39 PM EDT [facility] MCH 29.6 27.0 - 32.0 pcg LAB HEM[facility]OLOG[facility] MCHC 29.9(L) 32.0 - 37.0 g/dL LAB HEMETOLOGY METHOD 03/25/2025 6:39 PM [facility] RDW 19.7(H) 11.0 - 15.0 % LAB HEMETOLOGY METHOD 03/25/2025 6:39 PM [facility] Platelets 138 130 - 400 K/mcL LAB HEMETOLOGY METHOD 03/25/2025 6:39 PM [facility] MPV 9.7 7.0 - 11.0 FL LAB HEMETOLOGY METHOD 03/25/2025 6:39 PM [facility] NRBC 0.0 <1.0 % LAB HEMETOLOGY METHOD 03/25/2025 6:39 PM [facility] NRBC Absolute 0.00 <0.10 K/mcL LAB HEMETOLOGY METHOD 03/25/2025 6:39 PM [facility] Neutrophils Relative 59.9 % LAB HEMETOLOGY METHOD 03/25/2025 6:39 PM [facility] Lymphocytes Relative 28.7 % LAB HEMETOLOGY METHOD 03/25/2025 6:39 PM [facility] Monocytes Relative 8.0 % LAB HEMETOLOGY METHOD 03/25/2025 6:39 PM [facility] Eosinophils Relative 2.6 % LAB HEMETOLOGY METHOD 03/25/2025 6:39 PM [facility] Basophils Relative 0.4 % LAB HEMETOLOGY METHOD 03/25/2025 6:39 PM [facility] Immature Granulocytes Relative 0.4 % LAB HEMETOLOGY METHOD 03/25/2025 6:39 PM [facility] Neutrophils Absolute 2.98 1.50 - 7.00 K/mcL LAB HEMETOLOGY METHOD 03/25/2025 6:39 PM EDT [facility] Lymphocytes Absolute 1.43 1.00 - 5.00 K/[facility] LAB HEMETOLOGY METHOD 03/25/2025 6:39 PM EDT [facility] Monocytes Absolute 0.40 0.20 - 1.00 K/[facility] LAB HEMETOLOGY METHOD 03/25/2025 6:39 PM EDT [facility] Eosinophils Absolute 0.13 0.00 - 0.50 K/[facility] LAB HEMETOLOGY METHOD 03/25/2025 6:39 PM EDT [facility] Basophils Absolute 0.02 0.00 - 0.20 K/[facility] LAB HEMETOLOGY METHOD 03/25/2025 6:39 PM EDT [facility] Immature Granulocytes Absolute 0.02 0.00 - 0.03 K/[facility] HEMETOLOGY METHOD 03/25/2025 6:39 PM EDT [facility] Blood Venous blood specimen / Unknown Venipuncture / Unknown 03/25/2025 2:15 PM EDT 03/25/2025 2:15 PM EDT Lance Ramirez MD LAB BLOOD ORDERABLES Naty l Result [facility] [address] [place] [address], * Iron and TIBC (03/25/2025 2:15 PM EDT) Only the most recent of2 resultswithin the time period is included. Iron 147 50 - 160 mcg/dL LAB CHEMISTRY METHOD 03/25/2025 7:18 PM EDT [facility] TIBC 371 250 - 450 mcg/dL LAB CHEMISTRY METHOD 03/25/2025 7:18 PM EDT [facility] Iron Saturation 40 20 - 50 % LAB CHEMISTRY METHOD 03/25/2025 7:18 PM EDT [facility] Blood Venous blood specimen / Unknown Venipuncture / Unknown 03/25/2025 2:15 PM EDT 03/25/2025 2:15 PM EDT Lance Ramirez MD LAB BLOOD ORDERABLES Naty l Result Performing Organization Address [facility] Co de Phone Number [facility] [address] [place] [address], * Alpha fetoprotein tumor marker (03/25/2025 2:15 PM EDT) Pathologist [facility] AFP 3.4 0.0 - 8.0 ng/mL LAB CHEMISTRY METHOD 03/25/2025 7:35 PM EDT [facility] Blood Venous blood specimen / Unknown Venipuncture / Unknown 03/25/2025 2:15 PM EDT 03/25/2025 2:15 PM EDT Narrative [facility] - 03/25/2025 7:35 PM EDT The Siemens Advia Centaur Chemiluminescent Immunoassay is used. Results obtained with different assay methods or kits cannot be used interchangeably. Results cannot be interpreted as absolute evidence of the presence or absence of malignant disease. Jane PIERRE LAB BLOOD ORDERABLES Final Re sult Performing Organization Address [facility] Co de Phone Number [facility] [address] [place] [address], * Ferritin (03/25/2025 2:15 PM EDT) Only the most recent of2 resultswithin the time period is included. Pathologist [facility] Ferritin 52 26 - 388 ng/mL LAB CHEMISTRY METHOD 03/25/2025 7:12 PM EDT [facility] Blood Venous blood specimen / Unknown Venipuncture / Unknown 03/25/2025 2:15 PM EDT 03/25/2025 2:15 PM EDT us Lance Ramirez MD LAB BLOOD ORDERABLES Naty artis Result [facility] [address] [place] [address], [place] [phone] * US Abdomen Aortic Aneurysm Screening (03/13/2025 8:52 AM EDT) Anatomical Region Laterality Modality Abdominal aorta Ultrasound 03/13/2025 5:15 PM EDT Impressions 03/13/2025 5:16 PM EDT No evidence of abdominal aortic aneurysm -------- FINAL REPORT -------- Dictated By: Yamel Baptiste Dictated Date: 03/13/2025 17:15 ET Assigned Physician: Yamel Baptiste Reviewed and Electronically Signed By: Yamel Baptiste Signed Date: 03/13/2025 17:16 ET Workstation ID: [id number] Transcribed By: Self Edit Transcribed Date: 03/13/2025 17:15 ET Narrative 03/13/2025 5:16 PM EDT EXAM: Ultrasound evaluation of the abdominal aorta. HISTORY: screen AAA COMPARISON:Complete abdominal ultrasound from 11/29/2023 Technique: Grayscale and Doppler images of the abdominal aorta and proximal common iliac arteries were obtained. FINDINGS: Proximal abdominal aorta measures 2.4 x 2.6 x 2.4 cm in caliber Mid abdominal aorta measures 1.8 x 1.7 x 2.1 cm in caliber Distal abdominal aorta measures 1.6 x 1.5 x 1.9 cm in caliber Iliacs not evaluated due to obscuration from bowel gas. Procedure Note Yamel Baptiste MD - 03/13/2025 EXAM: Ultrasound evaluation of the abdominal aorta. HISTORY: screen AAA COMPARISON:Complete abdominal ultrasound from 11/29/2023 Technique: Grayscale and Doppler images of the abdominal aorta andproximal common iliac arteries were obtained. FINDINGS: Proximal abdominal aorta measures 2.4 x 2.6 x 2.4 cm in caliber Mid abdominal aorta measures 1.8 x 1.7 x 2.1 cm in caliber Distal abdominal aorta measures 1.6 x 1.5 x 1.9 cm in caliber Iliacs not evaluated due to obscuration from bowel gas. IMPRESSION: No evidence of abdominal aortic aneurysm -------- FINAL REPORT -------- Dictated By: Yamel Baptiste Dictated Date: 03/13/2025 17:15 ET Assigned Physician: Yamel Baptiste Reviewed and Electronically Signed By: Yamel Baptiste Signed Date: 03/13/2025 17:16 ET Workstation ID: [id number] Transcribed By: Self Edit Transcribed Date: 03/13/2025 17:15 ET Lance Ramirez MD [facility] US PROCEDURES Final R esult * (ABNORMAL) Microalbumin creatinine urine ratio (03/11/2025 1:56 PM EDT) Creatinine, Urine 316.0 mg/dL LAB CHEMISTRY METHOD 03/11/2025 6:29 PM EDT [facility] Microalb, Ur 299.0(H) 0.0 - 29.0 mg/L LAB CHEMISTRY METHOD 03/11/2025 6:29 PM EDT [facility] Microalb/Crea t Ratio 95(H) <30 mg/g creat LAB CHEMISTRY METHOD 03/11/2025 6:29 PM EDT [facility] Urine Urine specimen obtained by clean catch procedure / Unknown Non-blood Collection / Unknown 03/11/2025 1:56 PM EDT 03/11/2025 1:56 PM EDT Lance Ramirez MD LAB URINE ORDERABLES Naty l Result [facility] [address] [place] [address], * Prostate specific antigen screen (03/10/2025 11:13 AM EDT) PSA 0.29 0.00 - 4.00 ng/mL LAB CHEMISTRY METHOD 03/10/2025 5:10 PM EDT [facility] Blood Venous blood specimen / Unknown Venipuncture / Unknown 03/10/2025 11:13 AM EDT 03/10/2025 11:13 AM EDT Narrative [facility] - 03/10/2025 5:10 PM EDT The Siemens Advia Centaur Chemiluminescent Immunoassay is used. Results obtained with different assay methods or kits cannot be used interchangeably. Results cannot be interpreted as absolute evidence of the presence or absence of malignant disease. us Lance Ramirez MD LAB BLOOD ORDERABLES Naty l Result Performing Organization Address City/[facility]/ZIP Co de Phone Number [facility] [address] [place] [address], [place] [phone] * Vitamin B12 and folate (03/10/2025 11:13 AM EDT) [facility] Vitamin B-12 419 250 - 900 pcg/mL LAB CHEMISTRY METHOD 03/10/2025 4:25 PM EDT [facility] Folate 5.5 2.8 - 17.0 ng/ml LAB CHEMISTRY METHOD 03/10/2025 4:25 PM EDT [facility] Blood Venous blood specimen / Unknown Venipuncture / Unknown 03/10/2025 11:13 AM EDT 03/10/2025 11:13 AM EDT us Lance Ramirez MD LAB BLOOD ORDERABLES Naty l Result [facility] [address] [place] [address], [place] [phone] * (ABNORMAL) Lipid panel with reflex to direct LDL (03/10/2025 11:13 AM EDT) [facility] Cholesterol 108 0 - 200 mg/dL LAB CHEMISTRY METHOD 03/10/2025 4:25 PM EDT [facility] Triglycerides 75 0 - 150 mg/dL LAB CHEMISTRY METHOD 03/10/2025 4:25 PM EDT [facility] HDL 36(L) >=40 mg/dL LAB CHEMISTRY METHOD 03/10/2025 4:25 PM EDT [facility] LDL Calculated 57 0 - 100 mg/dL LAB CHEMISTRY METHOD 03/10/2025 4:25 PM EDT [facility] Comment:Estimated LDL Calcul ated using equation: Total cholesterol - HDL cholesterol - (Triglycerides/5) VLDL Cholesterol Raza 15 mg/dL LAB CHEMISTRY METHOD 03/10/2025 4:25 PM EDT [facility] Non HDL Chol. (LDL+VLDL) 72 <145 mg/dL LAB CHEMISTRY METHOD 03/10/2025 4:25 PM EDT [facility] Chol/HDL Ratio 3.0 0.0 - 4.4 LAB CHEMISTRY METHOD 03/10/2025 4:25 PM EDT [facility] Blood Venous blood specimen / Unknown Venipuncture / Unknown 03/10/2025 11:13 AM EDT 03/10/2025 11:13 AM EDT Lance Ramirez MD LAB BLOOD ORDERABLES Naty l Result [facility] [address] [place] [address], * Alanine aminotransferase (03/10/2025 11:13 AM EDT) ALT (SGPT) 13 10 - 60 unit/L LAB CHEMISTRY METHOD 03/10/2025 3:58 PM EDT [facility] Blood Venous blood specimen / Unknown Venipuncture / Unknown 03/10/2025 11:13 AM EDT 03/10/2025 11:13 AM EDT Lance Ramirez MD LAB BLOOD ORDERABLES Naty l Result [facility] [address] [place] [address], [place] [phone] * Aspartate aminotransferase (03/10/2025 11:13 AM EDT) Pathologist [facility] AST (SGOT) 16 10 - 42 unit/L LAB CHEMISTRY METHOD 03/10/2025 3:58 PM EDT [facility] Blood Venous blood specimen / Unknown Venipuncture / Unknown 03/10/2025 11:13 AM EDT 03/10/2025 11:13 AM EDT Lance Ramirez MD LAB BLOOD ORDERABLES Naty l Result Performing Organization Address City/[facility]/ZIP Co de Phone Number [facility] [address] [place] [address], [place] [phone] * Hemoglobin A1c (03/10/2025 11:13 AM EDT) [facility] Hemoglobin A1C 5.5 <6.5 % LAB CHEMISTRY METHOD 03/10/2025 5:33 PM EDT [facility] Mean Bld Glu Estim. 111 mg/dL LAB CHEMISTRY METHOD 03/10/2025 5:33 PM EDT [facility] Blood Venous blood specimen / Unknown Venipuncture / Unknown 03/10/2025 11:13 AM EDT 03/10/2025 11:13 AM EDT Lance Ramirez MD LAB BLOOD ORDERABLES Naty l Result [facility] [address] [place] [address], [place] [phone] * Vascular US duplex lower extremity arteries bilateral with KRUPA (03/09/2025 1:33 PM EDT) Anatomical Region Laterality Modality Vascular, Abdomen Ultrasound 03/19/2025 2:28 PM EDT Impressions 03/19/2025 2:39 PM EDT Normal study. Right leg: Moderately disease posterior tibial artery. Left leg: No significant stenosis or occlusion. -------- FINAL REPORT -------- Dictated By: César Solis Dictated Date: 03/19/2025 14:28 ET Assigned Physician: César Solis Reviewed and Electronically Signed By: César Solis Signed Date: 03/19/2025 14:39 ET Workstation ID: [id number] Transcribed By: Self Edit Transcribed Date: 03/19/2025 14:28 ET Narrative 03/19/2025 2:39 PM EDT INDICATION: Peripheral arterial disease TECHNIQUE: Bilateral ankle to brachial indices obtained. Arterial duplex imaging obtained of both lower extremities. Prior relevant imaging studies: None Right posterior tibial index 1.10 Right dorsalis pedis index 1.03 Right digital index is not obtainable secondary to amputation Left posterior tibial index 0.93 Left dorsalis pedis index 1.01 Left digital index toes is not obtainable secondary to amputation Normal Doppler waveforms. Right leg: Common femoral artery: Normal velocities and waveform. Superficial femoral artery: Normal velocities and waveform. Popliteal artery: Normal velocities and waveform. Posterior tibial artery: 20 cm/s within the mid vessel with monophasic waveform. Anterior tibial artery: Biphasic flow in the mid to distal vessel with velocity measuring 55 cm/s distally. Left leg: Common femoral artery: Normal velocities and waveform. Superficial femoral artery: Normal velocities and waveform. Popliteal artery: Normal velocities and waveform.. Posterior tibial artery: Normal velocities and waveform. Anterior tibial artery: Normal velocities and waveform. Procedure Note César Solis MD - 03/19/2025 INDICATION: Peripheral arterial disease TECHNIQUE: Bilateral ankle to brachial indices obtained. Arterial dupleximaging obtained of both lower extremities. Prior relevant imaging studies: None Right posterior tibial index 1.10 Right dorsalis pedis index 1.03 Right digital index is not obtainable secondary to amputation Left posterior tibial index 0.93 Left dorsalis pedis index 1.01 Left digital index toes is not obtainable secondary to amputation Normal Doppler waveforms. Right leg: Common femoral artery: Normal velocities and waveform. Superficial femoral artery: Normal velocities and waveform. Popliteal artery: Normal velocities and waveform. Posterior tibial artery: 20 cm/s within the mid vessel with monophasicwaveform. Anterior tibial artery: Biphasic flow in the mid to distal vessel withvelocity measuring 55 cm/s distally. Left leg: Common femoral artery: Normal velocities and waveform. Superficial femoral artery: Normal velocities and waveform. Popliteal artery: Normal velocities and waveform.. Posterior tibial artery: Normal velocities and waveform. Anterior tibial artery: Normal velocities and waveform. IMPRESSION: Normal study. Right leg: Moderately disease posterior tibial artery. Left leg: No significant stenosis or occlusion. -------- FINAL REPORT -------- Dictated By: César Solis Dictated Date: 03/19/2025 14:28 ET Assigned Physician: César Solis Reviewed and Electronically Signed By: César Solis Signed Date: 03/19/2025 14:39 ET Workstation ID: [id number] Transcribed By: Self Edit Transcribed Date: 03/19/2025 14:28 ET us Francisca Grey MD CV VASCULAR PROCEDURES Fi nal Result * CT Abdomen Pelvis w Contrast (02/15/2025 3:36 PM EDT) Anatomical Region Laterality Modality Body Computed Tomogra phy 02/15/2025 3:41 PM EDT Impressions 02/15/2025 3:48 PM EDT Impression: 1. Inflamed fat-containing umbilical hernia. 2. 4 mm distal right ureteral calculus, without associated hydronephrosis. 3. Cirrhotic liver with moderate splenomegaly. 4. Cholelithiasis. No evidence of acute cholecystitis or biliary obstruction. Telekami PIERRE ([id number]) -------- FINAL REPORT -------- Dictated By: Ashley Antony Dictated Date: 02/15/2025 15:41 ET Assigned Physician: Ashley Antony Reviewed and Electronically Signed By: Ashley Antony Signed Date: 02/15/2025 15:48 ET Workstation ID: [id number] Transcribed By: Self Edit Transcribed Date: 02/15/2025 15:41 ET Narrative 02/15/2025 3:48 PM EDT History: Nonreducible umbilical hernia. Comparison: 09/16/17 Technique: Helical volumetric imaging of the abdomen and pelvis was performed without oral contrast and during the uneventful intravenous administration of 90 cc Isovue-370. DLP: 1186.91 mGy/cm [employer] Iterative reconstruction technique Findings: Redemonstrated is a fat-containing umbilical hernia. The hernia sac has increased in size, now approximately 6 x 5 x 6 cm, compared to 3 x 3 x 2.5 cm previously. There is a small amount of fluid within the dependent portion of the hernia sac and stranding is seen within the fat here and just deep to the abdominal wall in the midline, consistent with an inflamed hernia sac. No bowel containing hernia is seen. The liver is shrunken and nodular, with a heterogeneous the attenuating parenchyma, consistent with established cirrhosis, similar to previous. The portal vein remains patent. The gallbladder is physiologically distended and contains numerous small calculi. No evidence of biliary obstruction is seen. The spleen is moderately enlarged, approximately 16 cm in length, similar to previous. The pancreas and adrenal glands are unremarkable. The kidneys are normal in position and size, with symmetric, intact nephrograms and no evidence of hydronephrosis. A 9 mm nonobstructing calculus is seen in the lower pole of the left kidney. Bilateral renal cortical cysts are noted, including a 7 cm cyst in the upper pole of the right kidney and a 5 cm cyst in the lower pole of the left kidney. There is a 4 mm calculus within the distal right ureter, without associated hydronephrosis. This is new from the previous study. No abdominal aortic aneurysm is seen. The prostate and seminal vesicles are diminutive. The urinary bladder is unremarkable. No evidence of bowel obstruction is seen. Diverticulosis of the colon is noted. The appendix is normal in caliber in the right lower quadrant. No abnormal perienteric or pericolonic fat stranding is seen. Prominent Schmorl's node deformities are seen in the lumbar spine. Lumbar disc degenerative changes are present. Procedure Note Ashley Antony MD - 02/15/2025 History: Nonreducible umbilical hernia. Comparison: 09/16/17 Technique: Helical volumetric imaging of the abdomen and pelvis wasperformed without oral contrast and during the uneventful intravenousadministration of 90 cc Isovue-370. DLP: 1186.91 mGy/cm [employer] Iterative reconstruction technique Findings: Redemonstrated is a fat-containing umbilical hernia. The hernia sac hasincreased in size, now approximately 6 x 5 x 6 cm, compared to 3 x 3 x 2.5cm previously. There is a small amount of fluid within the dependentportion of the hernia sac and stranding is seen within the fat here andjust deep to the abdominal wall in the midline, consistent with aninflamed hernia sac. No bowel containing hernia is seen. The liver is shrunken and nodular, with a heterogeneous the attenuatingparenchyma, consistent with established cirrhosis, similar to previous.The portal vein remains patent. The gallbladder is physiologicallydistended and contains numerous small calculi. No evidence of biliaryobstruction is seen. The spleen is moderately enlarged, approximately 16 cm in length, similarto previous. The pancreas and adrenal glands are unremarkable. The kidneys are normal in position and size, with symmetric, intactnephrograms and no evidence of hydronephrosis. A 9 mm nonobstructingcalculus is seen in the lower pole of the left kidney. Bilateral renalcortical cysts are noted, including a 7 cm cyst in the upper pole of theright kidney and a 5 cm cyst in the lower pole of the left kidney. Thereis a 4 mm calculus within the distal right ureter, without associatedhydronephrosis. This is new from the previous study. No abdominal aortic aneurysm is seen. The prostate and seminal vesiclesare diminutive. The urinary bladder is unremarkable. No evidence of bowel obstruction is seen. Diverticulosis of the colon isnoted. The appendix is normal in caliber in the right lower quadrant. Noabnormal perienteric or pericolonic fat stranding is seen. Prominent Schmorl's node deformities are seen in the lumbar spine. Lumbardisc degenerative changes are present. IMPRESSION: Impression: 1. Inflamed fat-containing umbilical hernia. 2. 4 mm distal right ureteral calculus, without associatedhydronephrosis. 3. Cirrhotic liver with moderate splenomegaly. 4. Cholelithiasis. No evidence of acute cholecystitis [place] ([id number]) -------- FINAL REPORT -------- Dictated By: Ashley Antony Dictated Date: 02/15/2025 15:41 ET Assigned Physician: Ashley Antony Reviewed and Electronically Signed By: Ashley Antony Signed Date: 02/15/2025 15:48 ET Workstation ID: [id number] Transcribed By: Self Edit Transcribed Date: 02/15/2025 15:41 ET Cleveland Judge MD IMG CT PROCEDURES Final Result * Lactate, with Reflex (02/15/2025 1:51 PM EDT) LACTIC ACID 1.0 0.4 - 2.0 mmol/L LAB CHEMISTRY METHOD 02/15/2025 2:30 PM EDT [facility] Blood Venous blood specimen / Unknown Venipuncture / Unknown 02/15/2025 1:51 PM EDT 02/15/2025 2:00 PM EDT Cleveland Judge MD LAB BLOOD ORDERABLES Final Res ult Performing Organization Address [facility]/ZIP Co de Phone Number [facility] [address] [place] [address], [place] [phone] * Lipase (02/15/2025 1:51 PM EDT) Pathologist [facility] Lipase 29 13 - 75 unit/L LAB CHEMISTRY METHOD 02/15/2025 2:31 PM EDT [facility] Blood Venous blood specimen / Unknown Venipuncture / Unknown 02/15/2025 1:51 PM EDT 02/15/2025 2:01 PM EDT Xiomara PIERRE LAB BLOOD ORDERABLES Final Re sult Performing Organization Address City/[facility]/ZIP Co de Phone Number [facility] [address] [place] [address], [place] [phone] * (ABNORMAL) Comprehensive metabolic panel (02/15/2025 1:51 PM EDT) Sodium 136 133 - 145 mmol/L LAB CHEMISTRY METHOD 02/15/2025 2:33 PM [facility] Potassium 4.3 3.5 - 5.5 mmol/L LAB CHEMISTRY METHOD 02/15/2025 2:33 PM [facility] Chloride 107 96 - 110 mmol/L LAB CHEMISTRY METHOD 02/15/2025 2:33 PM [facility] CO2 27 21 - 32 mmol/L LAB CHEMISTRY METHOD 02/15/2025 2:33 PM [facility] Anion Gap 2(L) 3 - 11 LAB CHEMISTRY METHOD 02/15/2025 2:33 PM [facility] Glucose 99 70 - 100 mg/dL LAB CHEMISTRY METHOD 02/15/2025 2:33 PM [facility] BUN 13 5 - 25 mg/dL LAB CHEMISTRY METHOD 02/15/2025 2:33 PM [facility] Creatinine 1.43(H) 0.70 - 1.30 mg/dL LAB CHEMISTRY METHOD 02/15/2025 2:33 PM [facility] eGFR 54(L) >=60 mL/min/1. 73m2 LAB CHEMISTRY METHOD 02/15/2025 2:33 PM [facility] Comment:Calculation based on the Chronic Kidney Disease Epidemiology Collaboration (CKD-EPI) equation refit without adjustment for race. BUN/Creatinine Ratio 9.1 LAB CHEMISTRY METHOD 02/15/2025 2:33 PM [facility] Calcium 8.6 8.5 - 10.5 mg/dL LAB CHEMISTRY METHOD 02/15/2025 2:33 PM [facility] AST (SGOT) 17 10 - 42 unit/L LAB CHEMISTRY METHOD 02/15/2025 2:33 PM [facility] ALT (SGPT) 11 10 - 60 unit/L LAB CHEMISTRY METHOD 02/15/2025 2:33 PM EDT [facility] Alkaline Phosphatase 121 42 - 121 unit/L LAB CHEMISTRY METHOD 02/15/2025 2:33 PM EDT [facility] Total Protein 6.7 6.0 - 8.0 g/dL LAB CHEMISTRY METHOD 02/15/2025 2:33 PM EDT [facility] Albumin 3.2 3.2 - 5.0 g/dL LAB CHEMISTRY METHOD 02/15/2025 2:33 PM EDT [facility] Total Bilirubin 0.6 0.0 - 1.4 mg/dL LAB CHEMISTRY METHOD 02/15/2025 2:33 PM EDT [facility] Blood Venous blood specimen / Unknown Venipuncture / Unknown 02/15/2025 1:51 PM EDT 02/15/2025 2:01 PM EDT Xiomara PIERRE LAB BLOOD ORDERABLES Final Re sult [facility] [address] [place] [address], * Diabetes Foot Exam (11/05/2023) [facility] Diabetes: Annual Foot Exam Abstracted [facility] Provider HEALTH MAINTENANCE Final Result * Diabetes Eye Exam (11/05/2023) [facility] Diabetes: Annual Retina Eye Exam ABstracted [facility] Provider HEALTH MAINTENANCE Final Result * Colonoscopy (04/18/2023) [facility] Colonoscopy No interpretation , Abstracted Anatomical Region Laterality Modality Other [facility] Provider HEALTH MAINTENANCE Final Result * Hepatitis C Screening (06/23/2019) [facility] Hepatitis C Screening Abstracted [facility] Provider HEALTH MAINTENANCE Final Result from Last 3 Months or Most Recently Relevant to Health Maintenance Additional Health Concerns Active Problems Noted Date Diagnosed Date Autogenerated Problem 04/04/2025 Insurance [employer] MEDICARE Member Subscriber Plan / Payer (Ef fective 2024-Present) Name:Jeff Hawkins Relation to Subscriber:Self Name:Jeff Hawkins Payer ID:[id number] Group ID:[id number] Type:Not on file Address: [place] [address] [address] [id number] Care Teams Buoy Tender Relationship Specialty Start Date End Date Kelly Luke MD [address] [facility] [place] PCP - General Internal Medicine 03/11/25
--- OUTSIDE RECORDS SUMMARY | 2025-04-30 13:48 | XMS_ITS | Clinical Summary ---
Author Organization [facility] Address [address] [place] [address] Care Team Providers Care Caption Writer Name Role Phone Lance Ramirez MD Primary Care Provider [phone] Allergies Active Allergy Reactions Criticality Noted Date [...] age to complete this topic Care Teams Caption Writer Relationship Specialty Start Date End Date Lance Ramirez MD [address] [place] [address] [place] [address] PCP - General Internal Medicine 01/30/20
== END 2025-04-30 12:00 | disposition home or self-care (01) ==
LOC: HO.HUSH 11:02
PROVIDERS: PCP Internal Medicine; Visit Provider Urology
DX: N20.0 Calculus of kidney (principal); N40.1 Benign prostatic hyperplasia with lower urinary tract symptoms; R35.1 Nocturia; N13.8 Other obstructive and reflux uropathy; R31.29 Other microscopic hematuria
CPT/HCPCS: 52000; 99214

== ENCOUNTER → 2025-04-30 11:02 | Outpatient (BNVA) | payer OTHER, SELFPAY | PROVIDERS: PCP Internal Medicine; Visit Provider Urology | DX: N40.1 Benign prostatic hyperplasia with lower urinary tract symptoms (principal); N13.8 Other obstructive and reflux uropathy; N20.0 Calculus of kidney; R35.1 Nocturia | CPT/HCPCS: 52000; 99212 ==

== ENCOUNTER → 2025-05-20 05:51 | Outpatient (BNV) | payer OTHER, SELFPAY | PROVIDERS: PCP Internal Medicine; Visit Provider Radiology Diagnostic Radiology | DX: N20.0 Calculus of kidney (principal) | CPT/HCPCS: 74018 ==

== ENCOUNTER 2025-05-20 06:54 | Day surgery (SDC) | payer OTHER, SELFPAY ==
[2025-05-18 09:11] VITALS: BMI 32.6
--- NOTE | ~2025-05-20 | XR_ITS ---
EXAMINATION: XR ABDOMEN 1 VIEW (KUB) HISTORY: left kidney stone COMPARISON: Comparison is made with the prior examination dated 04/07/2019. Correlation is also made with a renal ultrasound dated 03/13/2023. FINDINGS: Two supine views of the abdomen are submitted. The bowel gas pattern is unremarkable, without evidence of mechanical obstruction. There is a 10 mm calcification overlying the lower pole of the left renal shadow. No suspicious calcifications are identified on the right. There are no abnormal soft tissue masses. The bones are intact. XR/XR KUB IMPRESSION: 10 mm calcification overlying the lower pole of the left renal shadow. Electronically signed by: Alvarez Gracia MD 05/20/2025 08:14 AM EST
[2025-05-20 07:13] VITALS: BMI 32.9
[2025-05-20 07:29] VITALS: BP 109/63; PULSE 93; RESP 16; TEMP 36.1; O2SAT 97
[2025-05-20] MEDS: Lactated Ringers 1,000 ML 999 ML IV (07:38)
--- NOTE | 2025-05-20 07:51 | HO.ANESPROP2 ---
Documented by User: Ashli Mcarthur NP 05/19/25 12:11 HPI - Anesthesia Eval Consult details Narrative: 64 yr old male for left Lithotripsy ESW s/p hernia repair at [facility] 04/03/25 with GA ETT 7.5 COPD: daily smoker; SOB at baseline. Atrial fibrillation: follows PVC, given clearance to hold Eliquis for 7 days prior to procedure; follows PVC, last visit 03/2025 - Stable, rate controlled; SOB on exertion at baseline, attributes to COPD, smoking daily. -Normal PET/CT stress test 07/2022 -Echocardiogram 01/2023 showed normal LVEF 55-60%, indeterminate diastolic function, no valvular abnormalities, mildly dilated sinus of Valsalva at 4.3 cm. - Cleared for his hernia procedure 04/2025, The patient is reasonable risk from a cardiovascular standpoint for low risk hernia surgery. He is able to complete greater than 4 METS workload without concerning cardiorespiratory symptoms. His breathlessness is stable over the last year. Alcoholic cirrhosis of liver without ascites PMFSH Active Problems Active Problems: All Active Problems (Updated 12/18/23 @ 10:59 by Haroldo Butterfield MD) Microscopic hematuria (Acute) Nephrolithiasis (Acute) Nocturia more than twice per night (Acute) BPH w urinary obs/LUTS (Acute) Degenerative arthritis of knee, bilateral (Acute) Amputation of right great toe (Acute) Morbid obesity (Acute) Charcot foot due to diabetes mellitus (Acute) shelter (current) use of opiate analgesic (Acute) Chronic pain syndrome (Acute) Gout, arthritis (Acute) Knee osteoarthritis (Acute) Past Medical History Medical History COVID-19 vaccine series completed COPD (chronic obstructive pulmonary disease) Cirrhosis Renal calculi Osteomyelitis Diabetes Atrial fibrillation Degenerative arthritis of knee, bilateral Amputation of right great toe Morbid obesity Charcot foot due to diabetes mellitus shelter (current) use of opiate analgesic Chronic pain syndrome Gout, arthritis Knee osteoarthritis Surgical History Surgical History H/O colonoscopy Hx of rotator cuff surgery Hx of foot surgery Hx of lithotripsy Hx of amputation Social History Social History Household Members Other:: roommate Are you a primary home health care case manager to a significant other at home: No Do you presently have visiting nurse or other home services: No Patient Tobacco Use Status: Current everyday Tobacco user Tobacco use type: Cigarette Cigarettes Per Day: 5 Years Smoked: 45 Use of substances other than those prescribed or required for medical reasons: No Are you DNR?: No Advance Directives: No Advance Directives Information Provided: Yes 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 Meds Allergies Allergy/AdvReac Type Severity Reaction Status Date / Time amlodipine (From NORVASC) Allergy Intermediate TREMORS Verified 04/30/25 11:08 hydrochlorothiazide Allergy Intermediate DIZZINESS Verified 04/30/25 11:08 (HYDROCHLOROTHIAZIDE) trazodone (TRAZODONE) Allergy Intermediate DIZZINESS Verified 04/30/25 11:08 escitalopram (From LEXAPRO) AdvReac Intermediate DIZZINESS Verified 04/30/25 11:08 Home Medications ?Medication ?Instructions ?Recorded ?Confirmed ?Last Taken ?Type cyclobenzaprine 10 mg tablet 10 mg PO TID 07/22/20 05/18/25 Unknown History gabapentin 600 mg tablet 600 mg PO TID 07/22/20 05/18/25 05/06/21 History furosemide 40 mg tablet 40 mg PO DAILY PRN Edema 03/17/21 05/18/25 Unknown History albuterol sulfate 90 mcg/actuation 1 inh inhalation Q4H PRN Wheezing 04/29/21 05/18/25 Unknown History aerosol inhaler apixaban 5 mg tablet (Eliquis) 1 tab PO BID 04/29/21 05/18/25 Unknown History diltiazem HCl 120 mg 1 cap PO DAILY 04/29/21 05/18/25 05/20/25 History capsule,extended release 24 hr fluticasone 250 mcg-salmeterol 50 1 inh inhalation BID 04/29/21 05/18/25 05/06/21 History mcg/dose blistr powdr for inhalation (Advair Diskus) metoprolol tartrate 25 mg tablet 1 tab PO BID 04/29/21 05/18/25 05/20/25 History tiotropium bromide 18 mcg capsule 1 cap inhalation DAILY 04/29/21 05/18/25 05/20/25 History with inhalation device (Spiriva with HandiHaler) ferrous sulfate 325 mg (65 mg 325 mg PO DAILY 03/27/22 05/18/25 Unknown History iron) tablet (FeroSul) furosemide 20 mg tablet 20 mg PO DAILY 03/30/23 05/18/25 Unknown History Exam Height,Weight and Vital Signs: Height 5 ft 10 in Weight 103 kg Pertinent Lab Results Pertinent Lab Results: NA 136 02/15/2025 ? K 4.3 02/15/2025 ? CL 107 02/15/2025 ? CO2 27 02/15/2025 ? GLUCOSE 99 02/15/2025 ? BUN 13 02/15/2025 ? CREATININE 1.43 (H) 02/15/2025 ? CALCIUM 8.6 02/15/2025 ? PROT 6.7 02/15/2025 ? ALBUMIN 3.2 02/15/2025 ? BILITOT 0.6 02/15/2025 ? AST 16 03/10/2025 ? ALT 13 03/10/2025 ? ALKPHOS 121 02/15/2025 ? EGFR 54 (L) 02/15/2025 ? WBC 5.0 03/25/2025 ? HGB 11.5 (L) 03/25/2025 ? HCT 38.5 (L) 03/25/2025 ? MCV 99.0 (H) 03/25/2025 ? PLT 138 03/25/2025 Narrative Narrative: EKG 03/2025 Ventricular Rate ECG 78 ? Atrial Rate 326 ? QRS Duration 78 ? Q-T Interval 384 ? QTc 437 ? R [place] 88 ? T [place] 67 ? ECG Interpretation ? ? ? Atrial fibrillation , known anticoagulatedAbnormal ECG? Documented by User: Selma Warren DO 05/20/25 07:54 [facility] Past Medical History Medical History COVID-19 vaccine series completed COPD (chronic obstructive pulmonary disease) Cirrhosis Renal calculi Osteomyelitis Diabetes Atrial fibrillation Degenerative arthritis of knee, bilateral Amputation of right great toe Morbid obesity Charcot foot due to diabetes mellitus shelter (current) use of opiate analgesic Chronic pain syndrome Gout, arthritis Knee osteoarthritis Family History Family history of problems with anesthesia: No Surgical History Surgical History H/O colonoscopy Hx of rotator cuff surgery Hx of foot surgery Hx of lithotripsy Hx of amputation History of Problems with Anesthesia: No Social History Social History Household Members Other:: roommate Are you a primary home health care case manager to a significant other at home: No Do you presently have visiting nurse or other home services: No Patient Tobacco Use Status: Current everyday Tobacco user Tobacco use type: Cigarette Cigarettes Per Day: 5 Years Smoked: 45 Use of substances other than those prescribed or required for medical reasons: No Are you DNR?: No Advance Directives: No Advance Directives Information Provided: Yes 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 Meds Allergies Allergy/AdvReac Type Severity Reaction Status Date / Time amlodipine (From NORVASC) Allergy Intermediate TREMORS Verified 04/30/25 11:08 hydrochlorothiazide Allergy Intermediate DIZZINESS Verified 04/30/25 11:08 (HYDROCHLOROTHIAZIDE) trazodone (TRAZODONE) Allergy Intermediate DIZZINESS Verified 04/30/25 11:08 escitalopram (From LEXAPRO) AdvReac Intermediate DIZZINESS Verified 04/30/25 11:08 Home Medications ?Medication ?Instructions ?Recorded ?Confirmed ?Last Taken ?Type cyclobenzaprine 10 mg tablet 10 mg PO TID 07/22/20 05/18/25 Unknown History gabapentin 600 mg tablet 600 mg PO TID 07/22/20 05/18/25 05/06/21 History furosemide 40 mg tablet 40 mg PO DAILY PRN Edema 03/17/21 05/18/25 Unknown History albuterol sulfate 90 mcg/actuation 1 inh inhalation Q4H PRN Wheezing 04/29/21 05/18/25 Unknown History aerosol inhaler apixaban 5 mg tablet (Eliquis) 1 tab PO BID 04/29/21 05/18/25 Unknown History diltiazem HCl 120 mg 1 cap PO DAILY 04/29/21 05/18/25 05/20/25 History capsule,extended release 24 hr fluticasone 250 mcg-salmeterol 50 1 inh inhalation BID 04/29/21 05/18/25 05/06/21 History mcg/dose blistr powdr for inhalation (Advair Diskus) metoprolol tartrate 25 mg tablet 1 tab PO BID 04/29/21 05/18/25 05/20/25 History tiotropium bromide 18 mcg capsule 1 cap inhalation DAILY 04/29/21 05/18/25 05/20/25 History with inhalation device (Spiriva with HandiHaler) ferrous sulfate 325 mg (65 mg 325 mg PO DAILY 03/27/22 05/18/25 Unknown History iron) tablet (FeroSul) furosemide 20 mg tablet 20 mg PO DAILY 03/30/23 05/18/25 Unknown History Exam Exam Date and Time: 05/20/25 0751 Height,Weight and Vital Signs: Height 5 ft 10 in Weight 103 kg Vital Signs Temperature 96.9 F 05/20/25 07:29 Pulse Rate 93 05/20/25 07:29 Respiratory Rate 16 05/20/25 07:29 Blood Pressure 109/63 05/20/25 07:29 Pulse Oximetry 97 05/20/25 07:29 Oxygen Delivery Method Room Air 05/20/25 07:29 Temperature 96.9 F 05/20/25 07:29 Pulse Rate 93 05/20/25 07:29 Respiratory Rate 16 05/20/25 07:29 Blood Pressure 109/63 05/20/25 07:29 Pulse Oximetry 97 05/20/25 07:29 Oxygen Delivery Method Room Air 05/20/25 07:29 Airway Mallampati Class: I TM Dist: >3cm Neck ROM: Full Loose/Missing/Broken Teeth: Yes (Edentulous) Heart: S1S2 Lungs: Diminished bilaterally Assessment and Plan Assessment Anesthesia Assessment: Anesthesia Plan Discussed and Chart Reviewed Final Anesthetic Review Family History of Problems with Anesthesia: No History of Problems with Anesthesia: No NPO: Yes ASA Class: III Final Preanesthetic Review: No Changes in Pt Med Stat, Meds/Allgs Chart Reviewed, Consent Obtained/Reviewed and Anes Risks/Benef Reviewed Patient Risk: Intermediate Procedure Risk: Low Anesthetic Plan Anesthetic Plan: MAC: and Agree w/ Assess. and Plan Disposition: Standard PACU
--- NOTE | 2025-05-20 08:03 | MHC.SHP ---
Pre-Procedural Eval Section A - 24 Hr Update-Section A only Date of Service: 05/20/25 The patient is an INPATIENT: No Changes since office visit: No Cold of Flu in the past 2 weeks, No New Medical Problems, No Changes in Medication and No Patient answered all questions The patient has been examined within 24 hours of the surgical procedure. The History & Physical has been completed within 30 days and I have reviewed it.: Yes Section B - Complete if H&P > 30 days Chief Complaint: Calculus of kidney Details of Present Illness: left 9mm stone Allergies: Allergies Allergy/AdvReac Type Severity Reaction Status Date / Time amlodipine (From NORVASC) Allergy Intermediate TREMORS Verified 04/30/25 11:08 hydrochlorothiazide Allergy Intermediate DIZZINESS Verified 04/30/25 11:08 (HYDROCHLOROTHIAZIDE) trazodone (TRAZODONE) Allergy Intermediate DIZZINESS Verified 04/30/25 11:08 escitalopram (From LEXAPRO) AdvReac Intermediate DIZZINESS Verified 04/30/25 11:08 Plan I have reviewed the history and physical and performed a pertinent physical examination on my patient. No changes have occurred unless specified. Time Spent With Patient Time: Total time managing care of this patient today ____ minutes.
--- NOTE | 2025-05-20 08:47 | W.PM.OPN ---
Operative Note Operative Note Date of Service: 05/20/25 Narrative: PreOperative Diagnosis: left Renal stones Post Operative Diagnosis: left Renal stones Procedure: left ESWL Surgeon: Dr Haroldo Butterfield Anesthesia: mac/sedation Indications for procedure: The patient understands ESWL may be a staged procedure and subsequent intervention may be required based on imaging after ESWL. Quoted stone clearance rates for a solitary procedure are in the 70-80% range based primarily on stone location. They also understand there is a risk of bleeding to the kidney, infection, damage to adjacent organs, and stone migration following the procedure. - Imaging 1cm lower pole Procedure optimization has been performed with IV acetaminophen given in the holding area and 1 L of lactated Ringer's to be given in order to optimize the fluid-stone interface. 20 mg of IV Lasix will be given in the last 5 minutes of the procedure to optimize stone clearance. Procedure: After informed consent was verified the patient was brought to the operating room and placed in a supine position. Anesthesia was performed per protocol. Safety pause time-out was performed. Imaging was displayed in the room and laterality confirmed. ESWL was performed. The 1st 500 shocks were performed at 60 hertz. These were performed with increasing power. Once maximum power was reached the rate was increased to 180 hertz. A total of 2500 shocks were given. Targeted imaging with ultrasound/fluoroscopy showed stone smudging suggestive of disintegration. The patient tolerated the procedure well and was transferred to the recovery area upon completion. Post procedure imaging will be organized. There was no evidence for flank discoloration.
[2025-05-20 08:53] VITALS: BP 95/50; PULSE 94; RESP 14; TEMP 36.1; O2SAT 98
[2025-05-20 08:55] VITALS: BP 97/62; PULSE 82; RESP 11; O2SAT 98
[2025-05-20 09:00] VITALS: BP 102/64; PULSE 82; RESP 16; O2SAT 97
[2025-05-20 09:15] VITALS: BP 100/64; PULSE 87; RESP 14; TEMP 36.1; O2SAT 96
== END 2025-05-20 09:34 | disposition home or self-care (01) ==
PROVIDERS: PCP Internal Medicine; Visit Provider Urology
PROC: (CPT 50590; principal; 2025-05-20 08:30)
DX: N20.0 Calculus of kidney (principal); N28.1 Cyst of kidney, acquired; R31.29 Other microscopic hematuria; Z87.442 Personal history of urinary calculi; N40.1 Benign prostatic hyperplasia with lower urinary tract symptoms; N13.8 Other obstructive and reflux uropathy; R35.1 Nocturia; N32.89 Other specified disorders of bladder; N32.3 Diverticulum of bladder; G89.4 Chronic pain syndrome; M86.9 Osteomyelitis, unspecified; M10.9 Gout, unspecified; M17.0 Bilateral primary osteoarthritis of knee; E11.610 Type 2 diabetes mellitus with diabetic neuropathic arthropathy; J44.9 Chronic obstructive pulmonary disease, unspecified; Z89.411 Acquired absence of right great toe; Z79.899 Other long term (current) drug therapy; Z79.01 Long term (current) use of anticoagulants; Z79.891 Long term (current) use of opiate analgesic; Z88.5 Allergy status to narcotic agent; Z88.8 Allergy status to other drugs, medicaments and biological substances; F17.210 Nicotine dependence, cigarettes, uncomplicated
CPT/HCPCS: 50590; 74018; J0131; J2003; J2250; J2371; J2704; J3010

== ENCOUNTER → 2025-05-20 06:54 | Outpatient (BNV) | payer OTHER, SELFPAY | PROVIDERS: PCP Internal Medicine; Visit Provider Urology | DX: N20.0 Calculus of kidney (principal) | CPT/HCPCS: 50590 ==